=== PATIENT | female | born 1960 | race Caucasian/White ===

== ENCOUNTER 2016-11-12 15:04 | Emergency (ER) | payer MEDICARE, MEDICAID ==
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
[2016-11-12] MEDS ORDERED: LORazepam 1 MG Tab PO ONE (16:47)
[2016-11-12] MEDS ORDERED: Acetaminophen 325 MG Tab PO ONE (16:47)
[2016-11-12 16:53] LABS: ACETAMINOPHEN 0 ug/mL (10-30)
[2016-11-12 18:37] VITALS: BP 162/86
== END 2016-11-12 18:40 ==
LOC: JD.ED 15:04
DX: R45.851 Suicidal ideations (principal); J45.909 Unspecified asthma, uncomplicated; E78.00 Pure hypercholesterolemia, unspecified; F41.8 Other specified anxiety disorders; E03.9 Hypothyroidism, unspecified; Z96.642 Presence of left artificial hip joint; Z98.890 Other specified postprocedural states; Z87.891 Personal history of nicotine dependence; Z79.82 Long term (current) use of aspirin; Z88.1 Allergy status to other antibiotic agents; Z79.899 Other long term (current) drug therapy
CPT/HCPCS: 36415; 80053; 80306; 81001; 84443; 85025; 99285; A9270; G0480; 99284

== ENCOUNTER 2018-01-27 09:47 | Day surgery (SDC) | payer MEDICARE, MEDICAID ==
[~2018-01-27 09:47] MED LIST: Acetaminophen 325 MG Tab PO SCH; Albuterol 0.083% 2.5 MG/3 ML Neb Soln NEB ONE; EPINEPHrine 1 MG/ML SDV ONE; Lidocaine 1%/Sod Bicarbonate in NS 8.4% 1 ML Syringe IDERM PRN; Pregabalin 25 MG Cap PO SCH; Ropivacaine 0.5% 5 MG/ML 30 ML SDV ONE; Sodium Chloride 0.9% 10 ML Syringe FLUSH PRN; oxyCODONE ER 10 MG TAB.ER PO SCH
[2018-01-27] MEDS: Lactated Ringers 1,000 ML IV SCH ×2 (10:40→13:43)
--- NOTE | 2018-01-27 12:14 | PCM.PREANE ---
Preanesthetic Assessment - Anesthesia/Transfusion/Family Hx Anesthesia History: Prior Anesthesia Without Reaction Type of Anesthesia Reaction: Excessive Nausea/Vomiting Family History of Anesthesia Reaction: No Transfusion History: No Prior Transfusion(s) - Review of Systems General: Other (hx of rubella) Pulmonary: Shortness of Breath, Other (asthma on inhalers, LILIANA with CPAP, quit smoking 2 months ago) Cardiovascular: Palpitations, Other (increased cholesterol) Gastrointestinal: Other (Gerd on meds) Neurological: Headache, Other (C3456 fusion) Other: Reports: Thyroid Problems (hypothyroid), Depression, Anxiety ( schizophrenia, hx of ETOH abuse, ) - Physical Assessment NPO Status Date: 01/26/18 NPO Status Time: 20:30 Pulse: 77 O2 Sat by Pulse Oximetry: 95 Respiratory Rate: 16 Blood Pressure: 156/81 Vital Signs: Last Vital Signs Temp 37.2 C 01/27/18 10:15 Pulse 77 01/27/18 10:15 Resp 16 01/27/18 10:15 BP 156/81 H 01/27/18 10:15 Pulse Ox 95 01/27/18 10:15 Height: 1.6 m Weight: 100.698 kg ASA Class: 3 Mental Status: Alert & Oriented x3 Airway Class: Mallampati = 2 ROM/Head Extension: Limited/Partial (hx of c3456 fusion) Lungs: Clear to Auscultation, Normal Respiratory Effort Cardiovascular: Regular Rate, Regular Rhythm - Lab Values: Laboratory Last Values MRSA (PCR) Negative 12/31/17 16:04 - Allergies Allergies/Adverse Reactions: Allergies Allergy/AdvReac Type Severity Reaction Status Date / Time fluconazole [From Diflucan] Allergy dystonia Verified 01/24/18 14:37 ibuprofen Allergy stiffness Verified 01/24/18 14:37 levofloxacin [From Levaquin] Allergy Rash Verified 01/24/18 14:37 naproxen [From Aleve] Allergy stiffness Verified 01/24/18 14:37 - Blood Blood Available: No Product(s) Available: None - Anesthesia Plan Pre-Op Medication Ordered: None - Acknowledgements Pt an Appropriate Candidate for the Planned Anesthesia: Yes Alternatives and Risks of Anesthesia Discussed w Pt/Guardian: Yes Pt/Guardian Understands and Agrees with Anesthesia Plan: Yes PreAnesthesia Questionnaire HEENT History: Reports: Hard of Hearing, Sinusitis Other HEENT History: hearing loss, tonsillitis, pharyngitis, vasomotor rhinitis , deviated septum, wears glasses, has hearing aids Cardiovascular History: Reports: High Cholesterol, Other (See Below) Other Cardiovascular History: palpitations Respiratory History: Reports: Asthma, Bronchitis, Recurrent, Sleep Apnea, SOB, Other (See Below) Other Respiratory History: URI, pleural effusions Gastrointestinal History: Reports: GERD, GI Bleed Genitourinary History: Reports: Urinary Incontinence, UTI, Recurrent, Other ( See Below) Other Genitourinary History: hematuria, UTI, cystitis NEONATAL NURSE PRACTITIONER History: Reports: Therapeutic Other OB/BYN History: right breast biopsy, elective Musculoskeletal History: Reports: Osteoarthritis Other Musculoskeletal History: contusion, costochondritis, back pain, iknee enthesopathy, joint pain, hammertoe, left knee torn meniscus, degenerative joint disease Neurological History: Reports: Headaches, Chronic Psychiatric History: Reports: Addiction, Anxiety, Depression, Schizophrenia Endocrine/Metabolic History: Reports: Hypothyroidism Hematologic History: Reports: Other (See Below) Other Hematologic History: abnormal coagulation studies Immunologic History: Reports: None Oncologic (Cancer) History: Reports: None Dermatologic History: Reports: Other (See Below) Other Dermatologic History: animal bite, foot ulcer - Past Surgical History Other HEENT Surgeries/Procedures: deviated septum with surgery Cardiovascular Surgical History: Reports: None Respiratory Surgical History: Reports: None GI Surgical History: Reports: Colonoscopy Female Surgical History: Reports: Breast Biopsy, Hysterectomy, Tubal Ligation Other Female Surgeries/Procedures: right ovary Male Surgical History: Reports: None Endocrine Surgical History: Reports: None Neurological Surgical History: Reports: C-Spine Other Neurological Surgeries/Procedures: C3456 Musculoskeletal Surgical History: Reports: Arthroscopic Knee, Hip Replacement Other Musculoskeletal Surgeries/Procedures:: left hip, left knee surgery Oncologic Surgical History: Reports: None Dermatological Surgical History: Reports: None - SUBSTANCE USE Smoking Status *Q: Former Smoker Tobacco Use Within Last Twelve Months: Cigarettes Second Hand Smoke Exposure: Yes Days Per Week of Alcohol Use: 0 Recreational Drug Use History: No - HOME MEDS Home Medications: Home Meds Aspirin [Halfprin] 81 mg PO DAILY 11/05/13 [History] Esomeprazole [NexIUM] 40 mg PO DAILY 12/21/14 [History] Calcium Carbonate/Vitamin D3 [Calcium 600 + Vit D 800 Tab] 1 tab PO DAILY [History] Lurasidone HCl [Latuda] 80 mg PO DAILY 07/19/15 [History] Simvastatin [Zocor] 20 mg PO DAILY 07/19/15 [History] Multivitamin [Multivitamins] 1 each PO DAILY 11/12/16 [History] Acetaminophen [Tylenol Arthritis] 650 mg PO BID PRN 01/24/18 [History] Albuterol [Ventolin HFA] 1 - 2 puff INH Q4H PRN 01/24/18 [History] Cyclobenzaprine [Flexeril] 10 mg PO DAILY 01/24/18 [History] Fluticasone/Salmeterol [Advair 250-50 Diskus] 1 puff INH BID 01/24/18 [History] Nicotine [Nicotine Patch] 1 patch TOP DAILY 01/24/18 [History] buPROPion [Wellbutrin SR] 150 mg PO DAILY 01/24/18 [History] - CURRENT (IN HOUSE) MEDS Current Meds: Current Medications Acetaminophen (Tylenol) 975 mg PO ONETIME ELVA Stop: 01/27/18 16:00 Lactated Ringer's (Ringers, Lactated) 1,000 mls @ 125 mls/hr IV ASDIRECTED ELVA Stop: 01/27/18 23:00 Last Admin: 01/27/18 10:40 Dose: 125 mls/hr Lidocaine/Sodium Bicarbonate (Buffered Lidocaine 1% In Ns 8.4%) 0.25 ml IDERM ONETIME PRN PRN Reason: Prior to IV Start Stop: 01/27/18 18:00 Oxycodone HCl (Oxycontin) 10 mg PO ONETIME ELVA Stop: 01/27/18 16:00 Pregabalin (Lyrica) 50 mg PO ONETIME ELVA Stop: 01/27/18 16:00 Sodium Chloride (Saline Flush) 10 ml FLUSH ASDIRECTED PRN PRN Reason: Keep Vein Open Stop: 01/27/18 18:00 Discontinued Medications Albuterol (Proventil Neb Soln) 2.5 mg NEB ONETIME ONE Stop: 01/24/18 14:01 Morphine Sulfate 8 mg/Epinephrine HCl 0.3 mg/Cefuroxime Sodium 750 mg/Ketorolac Tromethamine 30 mg/Sodium Chloride 27.9 ml 0 mg .XX ONETIME ONE Stop: 01/27/18 11:26 Epinephrine HCl (Adrenalin) Confirm Administered Dose 1 mg .ROUTE .STK-MED ONE Stop: 01/27/18 07:49 Ropivacaine (Naropin 0.5%) Confirm Administered Dose 30 ml .ROUTE .STK-MED ONE Stop: 01/27/18 07:49
[2018-01-27] MEDS ORDERED: Ondansetron 4 MG/2 ML SDV ONE (12:35)
[2018-01-27] MEDS ORDERED: Propofol 200 MG/20 ML SDV ONE ×2 (12:35→14:40)
[2018-01-27] MEDS ORDERED: fentaNYL 100 MCG/2 ML SDV ONE (12:35)
[2018-01-27] MEDS ORDERED: Midazolam 1 MG/ML 2 ML SDV ONE (12:35)
[2018-01-27] MEDS ORDERED: ceFAZolin 1 GM Vial ONE (12:35)
[2018-01-27] MEDS ORDERED: Bupivacaine 0.75% 30 ML SDV ONE (12:43)
[2018-01-27] MEDS ORDERED: Lidocaine 1% 2 ML ONE (12:43)
[2018-01-27] MEDS ORDERED: Albuterol 0.083% 2.5 MG/3 ML Neb Soln NEB ONE (12:45)
[2018-01-27] MEDS ORDERED: Lidocaine 1% 4 ML ONE (13:02)
--- NOTE | 2018-01-27 13:23 | PCM.SN ---
- Free Text/Narrative Note: Right selective femoral nerve block at the adductor canal for post-procedure pain control under US guidance requested by Dr. Mcdonald. Time Out: 1302 Start: 1308 End: 1311 Chart reviewed. Consent signed. Questions answered. Appropriate monitors applied. Time out performed. Right mid-shaft femur identified with ultrasound, scanning medially of femur, the femoral artery in the adductor canal visualized , and the femoral nerve located laterally to the artery. The skin was prepped lateral to the ultrasound probe with chlorahexadine times two. The 21ga 4 insulated block needle was inserted under direct ultrasound guidance into the adductor canal. 25mL of 0.5% ropivacaine with 1:200,000 epinephrine was injected circumferentially around the nerve with intermittent negative aspiration noted. Patient tolerated the procedure well. Sterile technique noted along with sterile gloves, mask, and sterile probe cover. See picture on progress note and vital signs on nurses notes. Block completed in preop area with Alex Burris CRNA assist. Sergio Mendoza CRNA
[2018-01-27] MEDS: Bupivacaine 0.25% 30 ML SDV ONE ×2 (13:26→15:21)
[2018-01-27] MEDS: ceFAZolin 1 GM Vial ONE ×2 (13:26→15:26)
[2018-01-27] MEDS: Iodine/Sodium Iodide 2% Tincture 30 ML Bottle ONE ×2 (13:27→15:14)
[2018-01-27] MEDS: Morphine 8 MG, EPINEPHrine 0.3 MG, Cefuroxime 750 MG, Ketorolac 30 MG, Sodium Chloride ... ONE ×15 (13:27→17:27)
[2018-01-27] MEDS: Vancomycin 1 GM SDV ONE ×2 (13:28→15:23)
[2018-01-27] MEDS ORDERED: Morphine 8 MG, EPINEPHrine 0.3 MG, Cefuroxime 750 MG, Sodium Chloride 0.9% 27.9 ML ONE ×4 (15:00)
[2018-01-27] MEDS ORDERED: fentaNYL 100 MCG/2 ML SDV IVPUSH PRN (15:32)
[2018-01-27] MEDS ORDERED: Ondansetron 4 MG/2 ML SDV IVPUSH PRN ×2 (15:32→16:09)
[2018-01-27] MEDS ORDERED: Lactated Ringers 1,000 ML ONE (15:35)
[2018-01-27] MEDS ORDERED: Bisacodyl 5 MG Tab PO PRN (16:09)
[2018-01-27] MEDS ORDERED: Magnesium Hydroxide 400 MG/5 ML Susp 30 ML Cup PO PRN (16:09)
[2018-01-27] MEDS ORDERED: Naloxone 0.4 MG/ML SDV IVPUSH PRN (16:09)
[2018-01-27] MEDS ORDERED: Cyclobenzaprine 10 MG Tab PO PRN (16:09)
[2018-01-27] MEDS ORDERED: Sennosides 8.6 MG Tab PO PRN (16:09)
--- NOTE | 2018-01-27 16:10 | PCM.POSTAN ---
POST ANESTHESIA ASSESSMENT - MENTAL STATUS Mental Status: Alert, Oriented - VITAL SIGNS Pulse Rate: 77 SaO2: 96 Resp Rate: 24 Blood Pressure: 106/46 Temperature: 98.6 F - RESPIRATORY Respiratory Status: Respiratory Rate WNL, Airway Patent - CARDIOVASCULAR CV Status: Pulse Rate WNL, Blood Pressure Stable - GASTROINTESTINAL GI Status: No Symptoms - PAIN Pain Score: 0 - POST OP HYDRATION Hydration Status: Adequate & Stable
[2018-01-27] MEDS ORDERED: Famotidine 20 MG Tab PO SCH (16:15)
--- NOTE | 2018-01-27 17:14 | CR ---
Left knee AP and lateral views of the right knee were obtained. Comparison: Prior right knee exam of 05/14/17. Knee prosthesis is seen. Components are aligned. Soft tissue air is noted from the surgical procedure. No acute bony abnormality is seen. Impression: 1. Satisfactory postoperative radiographic appearance of recently placed right knee prosthesis. Diagnostic code #2
[2018-01-27] MEDS: Acetaminophen/oxyCODONE 325-5 MG Tab PO PRN ×2 (18:27→23:42)
[2018-01-27] MEDS: Morphine 2 MG/ML Syringe IVPUSH PRN (20:43)
[2018-01-27] MEDS: Docusate Sodium 100 MG Cap PO SCH (20:44)
[2018-01-27] MEDS: ceFAZolin 2 GM in Premix Bag 1 BAG IV SCH (20:44)
[2018-01-27] MEDS ORDERED: Formoterol/Mometasone 200-5 MCG 8.8 GM Inhaler IH SCH (21:00)
[2018-01-27] MEDS ORDERED: LATUDA 80 MG PO SCH (21:45)
[2018-01-27] MEDS: ADVAIR INH SCH (21:54)
[2018-01-27] MEDS: Albuterol 6.7 GM Inhaler INH PRN (23:06)
[2018-01-27] MEDS ORDERED: Acetaminophen 325 MG Tab PO PRN (23:26)
[2018-01-28] MEDS: Morphine 2 MG/ML Syringe IVPUSH PRN ×2 (02:02→07:50)
[2018-01-28] MEDS: ceFAZolin 2 GM in Premix Bag 1 BAG IV SCH ×2 (03:59→11:52)
[2018-01-28] MEDS: Acetaminophen/oxyCODONE 325-5 MG Tab PO PRN ×3 (05:17→13:16)
--- NOTE | 2018-01-28 05:26 | PCM.SN ---
- Free Text/Narrative Note: Patient seen and examined at bedside. She is status post Right TKA POD #1. She slept fairly good overnight. Her pain is controlled. She looks clinically stable and reports no acute issues. However her blood pressures for the most part poorly controlled. Will defer pain management to the primary team and consider starting her on PRN antihypertensive medication.
[2018-01-28] MEDS ORDERED: Pantoprazole 40 MG Tab.CR PO SCH (06:00)
--- NOTE | 2018-01-28 07:53 | PCM.SURGPN ---
- General Info Date of Service: 01/28/18 POD#: 1 Functional Status: Reports: Pain Controlled, Tolerating Diet, Ambulating, Urinating, Incentive Spirometry, Other (The pt has progressed well with therapies. She states she will have the assistance of her at home.) - Patient Data Vitals - Most Recent: Last Vital Signs Temp 99.7 F 01/28/18 06:40 Pulse 99 01/28/18 03:34 Resp 24 H 01/28/18 03:34 BP 152/66 H 01/28/18 03:34 Pulse Ox 98 01/28/18 03:34 Weight - Most Recent: 222 lb I&O - Last 24 Hours: Intake & Output 01/27/18 01/28/18 01/28/18 22:59 06:59 14:59 Intake Total 240 Output Total 15 Balance 240 -15 Lab Results Last 24 Hrs: Laboratory Results - last 24 hr 01/28/18 01/28/18 Range/Units 06:25 06:25 WBC 8.85 (3.98-10.04) K/mm3 RBC 4.45 (3.98-5.22) M/mm3 Hgb 12.1 (11.2-15.7) gm/L Hct 37.0 (34.1-44.9) % MCV 83.1 (79.4-94.8) fl MCH 27.2 (25.6-32.2) pg MCHC 32.7 (32.2-35.5) g/dl RDW Std Deviation 42.7 (36.4-46.3) fL Plt Count 239 (182-369) K/mm3 MPV 9.3 L (9.4-12.3) fl Sodium 136 (136-145) mEq/L Potassium 4.2 (3.5-5.1) mEq/L Chloride 101 (98-107) mEq/L Carbon Dioxide 24 (21-32) mEq/L Anion Gap 15.2 H (5-15) BUN 8 (7-18) mg/dL Creatinine 1.0 (0.55-1.02) mg/dL Est Cr Clr Drug Dosing 50.73 mL/min Estimated GFR (MDRD) 57 (>60) mL/min BUN/Creatinine Ratio 8.0 L (14-18) Glucose 123 H (74-106) mg/dL Calcium 8.2 L (8.5-10.1) mg/dL Total Bilirubin 0.5 (0.2-1.0) mg/dL AST 24 (15-37) U/L ALT 21 (14-59) U/L Alkaline Phosphatase 94 (46-116) U/L Total Protein 6.5 (6.4-8.2) g/dl Albumin 3.1 L (3.4-5.0) g/dl Globulin 3.4 gm/dL Albumin/Globulin Ratio 0.9 L (1-2) Med Orders - Current: Current Medications Acetaminophen (Tylenol) 650 mg PO Q4H PRN PRN Reason: Fever Last Admin: 01/27/18 23:34 Dose: 650 mg Albuterol (Proventil Hfa) 1 - 2 gm INH Q4H PRN PRN Reason: Shortness of Breath Last Admin: 01/27/18 23:06 Dose: 2 puff Aspirin (Halfprin) 81 mg PO DAILY [facility] Bisacodyl (Dulcolax) 5 mg PO DAILY PRN PRN Reason: Constipation Bupropion HCl (Wellbutrin Xl) 150 mg PO DAILY [facility] Calcium Carbonate (Calcium Carbonate/Vitamin D 600 Mg-200 Unit) 1 tab PO DAILY [facility] Cyclobenzaprine HCl (Flexeril) 10 mg PO TID PRN PRN Reason: Spasms Last Admin: 01/28/18 06:38 Dose: 10 mg Docusate Sodium (Colace) 100 mg PO BID [facility] Last Admin: 01/27/18 20:44 Dose: 100 mg Cefazolin Sodium/Dextrose 2 gm (/ Premix) 50 mls @ 100 mls/hr IV Q8H [facility] Stop: 01/28/18 12:29 Last Admin: 01/28/18 03:59 Dose: 100 mls/hr Lorazepam (Ativan) 2 mg PO QPM [facility] Magnesium Hydroxide (Milk Of Magnesia) 30 ml PO BID PRN PRN Reason: Constipation Miscellaneous Information (Remove Patch) 1 ea TRDERM DAILY [facility] Morphine Sulfate (Morphine) 2 mg IVPUSH Q2H PRN PRN Reason: Breakthrough Pain Last Admin: 01/28/18 07:50 Dose: 2 mg Multivitamins (Thera) 1 each PO DAILY [facility] Naloxone HCl (Narcan) 0.1 mg IVPUSH Q5M PRN PRN Reason: Oversedation Nicotine (Habitrol) 21 mg TOP DAILY [facility] Latuda 80 Mg Own (Med) 0 mg PO BEDTIME [facility] Last Admin: 01/27/18 23:02 Dose: 80 mg Ondansetron HCl (Zofran) 4 mg IVPUSH Q6H PRN PRN Reason: Nausea/Vomiting Oxycodone/Acetaminophen (Percocet 325-5 Mg) 1 - 2 tab PO Q4H PRN PRN Reason: Pain Last Admin: 01/28/18 05:17 Dose: 2 tab Pantoprazole Sodium (Protonix) 40 mg PO ACBREAKFAST [facility] Last Admin: 01/28/18 05:17 Dose: 40 mg Advair 250/50 (Inhaler Own Med) 0 each INH BID [facility] Last Admin: 01/27/18 21:54 Dose: 1 each Rivaroxaban (Xarelto) 10 mg PO DAILY [facility] Senna (Senna) 8.6 mg PO BID PRN PRN Reason: Constipation Simvastatin (Zocor) 20 mg PO DAILY [facility] Discontinued Medications Acetaminophen (Tylenol) 975 mg PO ONETIME [facility] Stop: 01/27/18 16:00 Last Admin: 01/27/18 12:38 Dose: 975 mg Albuterol (Proventil Neb Soln) 2.5 mg NEB ONETIME ONE Stop: 01/24/18 14:01 Albuterol (Proventil Neb Soln) 2.5 mg NEB ONETIME ONE Stop: 01/27/18 12:46 Last Admin: 01/27/18 12:48 Dose: 2.5 mg Bupivacaine HCl (Marcaine 0.25%) Confirm Administered Dose 30 ml .ROUTE .STK- MED ONE Stop: 01/27/18 12:26 Last Admin: 01/27/18 15:21 Dose: 30 ml Bupivacaine HCl (Sensorcaine-Mpf 0.75%) Confirm Administered Dose 30 ml .ROUTE .STK-MED ONE Stop: 01/27/18 12:44 Cefazolin Sodium (Ancef) Confirm Administered Dose 2 gm .ROUTE .STK-MED ONE Stop: 01/27/18 12:26 Last Admin: 01/27/18 15:26 Dose: 2 gm Cefazolin Sodium (Ancef) Confirm Administered Dose 2 gm .ROUTE .STK-MED ONE Stop: 01/27/18 12:36 Morphine Sulfate 8 mg/Epinephrine HCl 0.3 mg/Cefuroxime Sodium 750 mg/Ketorolac Tromethamine 30 mg/Sodium Chloride 27.9 ml 0 mg .XX ONETIME ONE Stop: 01/27/18 11:26 Last Admin: 01/27/18 17:27 Dose: Not Given Morphine Sulfate 8 mg/Epinephrine HCl 0.3 mg/Cefuroxime Sodium 750 mg/Sodium Chloride 27.9 ml 0 mg .XX ONETIME ONE Stop: 01/27/18 15:01 Last Admin: 01/27/18 15:20 Dose: 758.3 mg Epinephrine HCl (Adrenalin) Confirm Administered Dose 1 mg .ROUTE .STK-MED ONE Stop: 01/27/18 07:49 Famotidine (Pepcid) 20 mg PO Q12H [facility] Last Admin: 01/27/18 19:13 Dose: Not Given Fentanyl (Sublimaze) Confirm Administered Dose 100 mcg .ROUTE .STK-MED ONE Stop: 01/27/18 12:36 Fentanyl (Sublimaze) 50 mcg IVPUSH Q5M PRN PRN Reason: Pain Lactated Ringer's (Ringers, Lactated) 1,000 mls @ 125 mls/hr IV ASDIRECTED [facility] Stop: 01/27/18 23:00 Last Admin: 01/27/18 13:43 Dose: 125 mls/hr Lidocaine HCl (Xylocaine-Mpf 1%) Confirm Administered Dose 2 mls @ as directed .ROUTE .STK-MED ONE Stop: 01/27/18 12:44 Lidocaine HCl (Xylocaine-Mpf 1%) Confirm Administered Dose 4 mls @ as directed .ROUTE .STK-MED ONE Stop: 01/27/18 13:03 Lactated Ringer's (Ringers, Lactated) Confirm Administered Dose 1,000 mls @ as directed .ROUTE .STK-MED ONE Stop: 01/27/18 15:36 Iodine (Iodine 2% Mild Tincture) Confirm Administered Dose 30 ml .ROUTE .STK- MED ONE Stop: 01/27/18 12:26 Last Admin: 01/27/18 15:14 Dose: 18 ml Lidocaine/Sodium Bicarbonate (Buffered Lidocaine 1% In Ns 8.4%) 0.25 ml IDERM ONETIME PRN PRN Reason: Prior to IV Start Stop: 01/27/18 18:00 Midazolam HCl (Versed 1 Mg/Ml) Confirm Administered Dose 2 mg .ROUTE .STK-MED ONE Stop: 01/27/18 12:36 Ondansetron HCl (Zofran) Confirm Administered Dose 4 mg .ROUTE .STK-MED ONE Stop: 01/27/18 12:36 Ondansetron HCl (Zofran) 4 mg IVPUSH ONETIME PRN PRN Reason: Nausea/Vomiting Oxycodone HCl (Oxycontin) 10 mg PO ONETIME [facility] Stop: 01/27/18 16:00 Last Admin: 01/27/18 12:37 Dose: 10 mg Pregabalin (Lyrica) 50 mg PO ONETIME [facility] Stop: 01/27/18 16:00 Last Admin: 01/27/18 12:36 Dose: 50 mg Propofol (Diprivan 20 Ml) Confirm Administered Dose 600 mg .ROUTE .STK-MED ONE Stop: 01/27/18 12:36 Propofol (Diprivan 20 Ml) Confirm Administered Dose 400 mg .ROUTE .STK-MED ONE Stop: 01/27/18 14:41 Ropivacaine (Naropin 0.5%) Confirm Administered Dose 30 ml .ROUTE .STK-MED ONE Stop: 01/27/18 07:49 Sodium Chloride (Saline Flush) 10 ml FLUSH ASDIRECTED PRN PRN Reason: Keep Vein Open Stop: 01/27/18 18:00 Tranexamic Acid (Cyklokapron) Confirm Administered Dose 1,000 mg .ROUTE .STK- MED ONE Stop: 01/27/18 12:26 Last Admin: 01/27/18 15:24 Dose: 1,000 mg Vancomycin HCl (Vancomycin) Confirm Administered Dose 1 gm .ROUTE .STK-MED ONE Stop: 01/27/18 12:26 Last Admin: 01/27/18 15:23 Dose: 1 gm - Exam Wound/Incisions: Dressing Dry and Intact General: Alert, Cooperative, No Acute Distress Lungs: Normal Respiratory Effort Extremities: Other (NVS intact for RLE. Meredith's negative.) - Problem List Review Problem List Initiated/Reviewed/Updated: Yes - My Orders Last 24 Hours: Active Orders 24 hr Category Date Time Status Patient Status [ADT] Routine ADT 01/27/18 16:09 Active Ambulate [RC] TIDAC Care 01/27/18 16:09 Active Cooling Warming Measures [RC] ASDIRECTED Care 01/27/18 15:31 Inactive May Shower [RC] ASDIRECTED Care 01/27/18 16:09 Active Notify Provider Consults [RC] ASDIRECTED Care 01/27/18 16:12 Active Oxygen Therapy [RC] PRN Care 01/27/18 16:09 Active Pulse Oximetry [RC] ASDIRECTED Care 01/27/18 15:31 Active RT Aerosol Therapy [RC] ASDIRECTED Care 01/27/18 14:00 Active RT Incentive Spirometry [RC] Q1HWA Care 01/27/18 16:09 Active Ready for Discharge [RC] PER UNIT ROUTINE Care 01/28/18 07:43 Active Up to Chair [RC] ASDIRECTED Care 01/27/18 16:09 Active Urinary Catheter Removal [RC] 2100 Care 01/27/18 16:09 Active Vital Signs [RC] Q15M Care 01/27/18 15:31 Inactive Vital Signs [RC] Q4HR Care 01/27/18 16:09 Active Consult to Physician [CONS] Routine Cons 01/27/18 16:09 Active OT Evaluation and Treatment [CONS] Routine Cons 01/27/18 16:08 Active PT Evaluation and Treatment [CONS] Routine Cons 01/27/18 16:08 Active Regular Diet [DIET] Diet 01/27/18 Dinner Active Acetaminophen [Tylenol] Med 01/27/18 23:26 Active 650 mg PO Q4H PRN Acetaminophen/oxyCODONE [Percocet 325-5 MG] Med 01/27/18 16:09 Active 1 - 2 tab PO Q4H PRN Albuterol [Proventil HFA] Med 01/27/18 16:12 Active 1 - 2 gm INH Q4H PRN Aspirin [Halfprin] Med 01/28/18 09:00 Active 81 mg PO DAILY Bisacodyl [Dulcolax] Med 01/27/18 16:09 Active 5 mg PO DAILY PRN Calcium Carbonate/Vitamin D3 [Calcium Carbonate/Vitamin Med 01/28/18 09:00 Active D 600 MG-200 Unit] 1 tab PO DAILY Cyclobenzaprine [Flexeril] Med 01/27/18 16:09 Active 10 mg PO TID PRN Docusate Sodium [Colace] Med 01/27/18 21:00 Active 100 mg PO BID LORazepam [Ativan] Med 01/28/18 18:00 Active 2 mg PO QPM Lurasidone HCl [Latuda] Med 01/27/18 21:45 Active 0 mg PO BEDTIME Magnesium Hydroxide [Milk of Magnesia] Med 01/27/18 16:09 Active 30 ml PO BID PRN Morphine Med 01/27/18 16:09 Active 2 mg IVPUSH Q2H PRN Multivitamins,Therapeutic [Thera] Med 01/28/18 09:00 Active 1 each PO DAILY Naloxone [Narcan] Med 01/27/18 16:09 Active 0.1 mg IVPUSH Q5M PRN Nicotine [Habitrol] Med 01/28/18 09:00 Active 21 mg TOP DAILY Ondansetron [Zofran] Med 01/27/18 16:09 Active 4 mg IVPUSH Q6H PRN Pantoprazole [ProTONIX] Med 01/28/18 06:00 Active 40 mg PO ACBREAKFAST Patient's Own Medication [Ptom] Med 01/27/18 21:45 Active 0 each INH BID Remove Patch Med 01/29/18 09:00 Active 1 ea TRDERM DAILY Rivaroxaban [Xarelto] Med 01/28/18 09:00 Active 10 mg PO DAILY Sennosides [Senna] Med 01/27/18 16:09 Active 8.6 mg PO BID PRN Simvastatin [Zocor] Med 01/28/18 09:00 Active 20 mg PO DAILY buPROPion [Wellbutrin XL] Med 01/28/18 09:00 Active 150 mg PO DAILY ceFAZolin [Ancef] 2 gm Med 01/27/18 20:00 Active Premix Bag 1 bag IV Q8H Antiembolic Hose [OM.PC] Per Unit Routine Oth 01/27/18 16:11 Ordered Ice Therapy [OM.PC] Per Unit Routine Oth 01/27/18 16:10 Ordered Sequential Compression Device [OM.PC] Per Unit Routine Oth 01/27/18 16:09 Ordered Resuscitation Status Routine Resus Stat 01/27/18 16:09 Ordered Medication Orders Acetaminophen (Tylenol) 650 mg PO Q4H PRN PRN Reason: Fever Last Admin: 01/27/18 23:34 Dose: 650 mg Albuterol (Proventil Hfa) 1 - 2 gm INH Q4H PRN PRN Reason: Shortness of Breath Last Admin: 01/27/18 23:06 Dose: 2 puff Aspirin (Halfprin) 81 mg PO DAILY [facility] Bisacodyl (Dulcolax) 5 mg PO DAILY PRN PRN Reason: Constipation Bupropion HCl (Wellbutrin Xl) 150 mg PO DAILY [facility] Calcium Carbonate (Calcium Carbonate/Vitamin D 600 Mg-200 Unit) 1 tab PO DAILY [facility] Cyclobenzaprine HCl (Flexeril) 10 mg PO TID PRN PRN Reason: Spasms Last Admin: 01/28/18 06:38 Dose: 10 mg Docusate Sodium (Colace) 100 mg PO BID [facility] Last Admin: 01/27/18 20:44 Dose: 100 mg Cefazolin Sodium/Dextrose 2 gm (/ Premix) 50 mls @ 100 mls/hr IV Q8H [facility] Stop: 01/28/18 12:29 Last Admin: 01/28/18 03:59 Dose: 100 mls/hr Infusion: 01/27/18 21:14 Dose: 100 mls/hr Admin: 01/27/18 20:44 Dose: 100 mls/hr Lorazepam (Ativan) 2 mg PO QPM [facility] Magnesium Hydroxide (Milk Of Magnesia) 30 ml PO BID PRN PRN Reason: Constipation Miscellaneous Information (Remove Patch) 1 ea TRDERM DAILY [facility] Morphine Sulfate (Morphine) 2 mg IVPUSH Q2H PRN PRN Reason: Breakthrough Pain Last Admin: 01/28/18 07:50 Dose: 2 mg Admin: 01/28/18 02:02 Dose: 2 mg Admin: 01/27/18 20:43 Dose: 2 mg Multivitamins (Thera) 1 each PO DAILY [facility] Naloxone HCl (Narcan) 0.1 mg IVPUSH Q5M PRN PRN Reason: Oversedation Nicotine (Habitrol) 21 mg TOP DAILY [facility] Latuda 80 Mg Own (Med) 0 mg PO BEDTIME [facility] Last Admin: 01/27/18 23:02 Dose: 80 mg Ondansetron HCl (Zofran) 4 mg IVPUSH Q6H PRN PRN Reason: Nausea/Vomiting Oxycodone/Acetaminophen (Percocet 325-5 Mg) 1 - 2 tab PO Q4H PRN PRN Reason: Pain Last Admin: 01/28/18 05:17 Dose: 2 tab Admin: 01/27/18 23:42 Dose: 2 tab Admin: 01/27/18 18:27 Dose: 2 tab Pantoprazole Sodium (Protonix) 40 mg PO ACBREAKFAST [facility] Last Admin: 01/28/18 05:17 Dose: 40 mg Advair 250/50 (Inhaler Own Med) 0 each INH BID [facility] Last Admin: 01/27/18 21:54 Dose: 1 each Rivaroxaban (Xarelto) 10 mg PO DAILY [facility] Senna (Senna) 8.6 mg PO BID PRN PRN Reason: Constipation Simvastatin (Zocor) 20 mg PO DAILY [facility] - Assessment Assessment (Free Text/Narrative):: POD#1 - right TKA - Plan Plan (Free Text/Narrative):: 1. Hgb 12.1. 2. Xarelto (hx GI Bleed, GERD), frequent mobility, TEDs. 3. Discharge to home today. 4. Medical management per Hospitalist service. The pt's case was discussed with Dr. Mcdonald.
[2018-01-28] MEDS ORDERED: Calcium Carbonate/Vitamin D3 600 MG-200 Units Tab PO SCH (09:00)
[2018-01-28] MEDS ORDERED: Simvastatin 20 MG Tab PO SCH (09:00)
[2018-01-28] MEDS ORDERED: Aspirin 81 MG Tab.EC PO SCH (09:00)
[2018-01-28] MEDS ORDERED: Nicotine 21 MG/24 Hr Patch TOP SCH (09:00)
[2018-01-28] MEDS ORDERED: buPROPion 150 MG Tab.ER PO SCH (09:00)
[2018-01-28] MEDS ORDERED: Multivitamins,Therapeutic Tab PO SCH (09:00)
[2018-01-28] MEDS ORDERED: Rivaroxaban 10 MG Tab PO SCH (09:00)
[2018-01-28] MEDS: Docusate Sodium 100 MG Cap PO SCH (09:38)
--- NOTE | 2018-01-28 10:21 | PCM48HPAN ---
Post Anesthesia Note - EVALUATION WITHIN 48HRS OF ANESTHETIC Vital Signs in Normal Range: Yes Patient Participated in Evaluation: Yes Respiratory Function Stable: Yes Airway Patent: Yes Cardiovascular Function Stable: Yes Hydration Status Stable: Yes Pain Control Satisfactory: Yes Nausea and Vomiting Control Satisfactory: Yes Mental Status Recovered: Yes - COMMENTS/OBSERVATIONS Free Text/Narrative:: Patient denied any anesthetic complications. Patient did say she experienced quite a bit of pain all night last night. She did not rest well. Patient seemed to be resting well upon arrival for the assessment this am as her eyes were closed and the room darkened. Patient stated her pain was tolerable if she doesnt move her leg.
[2018-01-28] MEDS: ADVAIR INH SCH (10:34)
[2018-01-28] MEDS: Albuterol 6.7 GM Inhaler INH PRN (10:34)
[2018-01-28 12:06] VITALS: BP 107/89
[2018-01-28] MEDS ORDERED: LORazepam 1 MG Tab PO SCH (18:00)
[2018-01-29] MEDS ORDERED: Levothyroxine 125 MCG Tab PO SCH (06:00)
[2018-01-29] MEDS ORDERED: Levothyroxine 125 MCG Tab PO ONE (10:59)
--- NOTE | 2018-02-03 07:09 | PCM.OPNOTE ---
- General Post-Op/Procedure Note Date of Surgery/Procedure: 01/27/18 Operative Procedure(s): right total knee arthroplasty Pre Op Diagnosis: right knee osteoarthrosis Post-Op Diagnosis: Same Anesthesia Technique: Local, MAC, Spinal Primary Surgeon: Brian Mcdonald Anesthesia Provider: [employer] Librarian: [employer] Librarian: Gloria العلي in mLs: 10 Complications: None Condition: Good Free Text/Narrative:: / 9mm 29x9 all cemented
--- NOTE | 2018-02-04 10:30 | OR ---
DATE OF OPERATION: 01/27/2018 SURGEON: Brian Mcdonald MD OPERATION PERFORMED: Right total knee arthroplasty. PREOPERATIVE DIAGNOSIS: Right knee osteoarthrosis. POSTOPERATIVE DIAGNOSIS: Right knee osteoarthrosis. ANESTHESIA: Local MAC with spinal. ANESTHESIA PROVIDER: Tessa Estrada. ASSISTANTS: 1. Halley Cabello PA-C. 2. Gloria العلي LPN. ESTIMATED BLOOD LOSS: 10 mL COMPLICATIONS: None. CONDITION: Stable. IMPLANTS: 1. [place] size 4 cemented PS femur. 2. Barney size 4 cemented [place] tibial baseplate. 3. Barney size 4, 9 mm PS X3 polyethylene. 4. Barney size 29 x 9 mm asymmetric patella. DESCRIPTION OF PROCEDURE: The patient was identified in the preop holding area. Proper site was marked and identified by the surgeon. The patient was taken back to the operating theater. After adequate anesthesia, the patient's right lower extremity had a nonsterile tourniquet applied and it was then sterilely prepped and draped in the usual sterile fashion. OR timeout was performed. The patient received 2 g IV Ancef. At this time, right lower extremity was exsanguinated. Tourniquet was insufflated to 300 mmHg. Standard medial parapatellar incision was made. Medial parapatellar arthrotomy was created. Deep fibers of the MCL were raised and anterior fat pad was resected. At this time, attention was turned to the patella. Patella measured 22, it was resected to a 13 for 29 x 9 mm patella. Drill holes were then drilled and found to be in adequate position. The drill was then drilled in the distal femur and the intramedullary distal femoral cutting guide was then placed. 8 mm was resected off the distal femur and was found to be an adequate resection. Sizing guide was placed. It was found to be a Barney size 4 cemented PS femur that was shown on the implant record at the beginning of this dictation. The drill holes were drilled for the epicondylar axis using Whitesides line and epicondyles as reference. At this time, the 4-in- 1 cutting block was placed. An anterior posterior and anterior and posterior chamfer cuts were then completed. The correct size box cut was then placed and the box cut was completed and found to be an adequate resection. Attention was turned to the tibia. The posterior medial lateral retractors were placed. The extramedullary tibial guide was placed. It was placed in the old footprint of the ACL. It was aligned with the center of the ankle and 0 degrees of slope, 9 mm was then resected off the unaffected lateral side. There was found to be an acceptable reduction. At this time, posterior osteophytes were removed along with medial and lateral meniscus. A trial implant was placed with a correct sized tibia that was mentioned at the beginning of the dictation. A Barney size 4, 9 mm PS X3 polyethylene was then placed. The patient's knee was brought through range of motion. The patella was tracking centrally and was stable to varus and valgus stress. Alignment was found to be roughly at 0 degrees. At this time, cement was mixed on the back table. The tibia was stamped and drilled in proper rotation. All cut surfaces were irrigated with pulse lavage irrigation with Ancef and then completely dried. Once this was completed, then the cement was ready. The universal tibial base plate was cemented in place. Next, the [place] size 4 cemented PS femur cemented into place and the [place] size 4, 9 mm PS X3 polyethylene was placed. The patient's knee was brought into full extension. Excess cement was removed. The patella was then cemented in place at this time. Tourniquet was deflated. One liter dilute Betadine solution was irrigated through the knee along with 3 L of pulse lavage irrigation with Ancef. Periarticular injection was then completed. The patient's knee was brought through a range of motion. Once the cement had time to set up and it was found to be stable to varus valgus stress, the patella was tracking centrally with full range of motion. At this time, a #2 barbed suture was used for closure of the medial parapatellar arthrotomy. Topical tranexamic acid was placed. 2-0 Vicryl was used subcutaneously, a running 3-0 Monocryl was used subcuticularly. The patient tolerated the procedure well and was sent to the PACU in stable condition. VISHNU /[id number]
== END 2018-01-28 14:55 | disposition home or self-care (01) ==
LOC: JD.SDS 09:47 → JD.MS 09:50 → JD.SDS 01-28 14:55
PROVIDERS: ATTEND Orthopaedic Surgery
DX: M17.11 Unilateral primary osteoarthritis, right knee (principal); J45.41 Moderate persistent asthma with (acute) exacerbation; Z88.1 Allergy status to other antibiotic agents; Z88.8 Allergy status to other drugs, medicaments and biological substances; Z87.891 Personal history of nicotine dependence; Z79.82 Long term (current) use of aspirin; Z79.899 Other long term (current) drug therapy
CPT/HCPCS: 01402; 36415; 51798; 64450; 73560-26-RT; 73560-RT; 80053; 85027; 87641; 94640; 94664; 94761; 97110-GP; 97116-GP; 97161-GP; 97166-GO; 97535-GO; A9270-GY; C1713; C1776; J0171; J0690; J0697; J1885; J2001; J2250; J2270; J2405; J2704; J2795; J3010; J3370; J3490; J7120

== ENCOUNTER 2018-02-03 16:15 | Emergency (ER) | payer MEDICARE, MEDICAID ==
[2018-02-03 16:23] VITALS: BP 149/53
[2018-02-03] MEDS ORDERED: Sodium Chloride 0.9% 10 ML Syringe FLUSH PRN (16:25)
[2018-02-03] MEDS ORDERED: Sodium Chloride 0.9% 1,000 ML IV SCH (16:30)
[2018-02-03] MEDS ORDERED: HYDROmorphone 0.5 MG/0.5 ML SYRINGE IVPUSH ONE (16:31)
--- NOTE | 2018-02-03 17:21 | US ---
Right lower extremity deep venous ultrasound: Duplex and color flow imaging was obtained of the right common femoral, proximal greater saphenous, superficial femoral, popliteal, posterior tibial and peroneal veins. Left common femoral vein was also evaluated. Findings: Normal phasic flow, augmentation and compression is seen. Lymph node is seen within the right groin which is believed to be incidental. Impression: 1. No evidence of deep venous thrombosis within the right lower extremity or within the left common femoral vein. Diagnostic code #1
--- NOTE | 2018-02-03 17:32 | EDM.PDOC ---
ED HPI GENERAL MEDICAL PROBLEM - General Chief Complaint: Lower Extremity Injury/Pain Stated Complaint: [facility] Time Seen by Provider: 02/03/18 16:18 Source of Information: Reports: Patient, EMS, Family History Limitations: Reports: No Limitations - History of Present Illness INITIAL COMMENTS - FREE TEXT/NARRATIVE: The patient had a right total knee replacement done 1 week ago. She has pain and swelling to that leg. She has no fever but she does have chills. She has no chest pain or shortness of breath. She has no abdominal pain, nausea or vomiting. She has no history of DVT or PE. She sees Lizet Cabello tomorrow. She starts PT next week. Onset: Gradual Duration: Week(s): (1) Location: Reports: Lower Extremity, Right (leg) Quality: Reports: Sharp Severity: Moderate Improves with: Reports: Immobilization Worsens with: Reports: Movement Context: Reports: Activity (She had surgery 1 week ago) Associated Symptoms: Reports: No Other Symptoms Treatments COMPLAINT CLERK: Reports: Other (see below) Other Treatments COMPLAINT CLERK: oxycodone 5/325 Right Knee Pain Score (Numeric/FACES): 7 - Related Data Allergies Allergy/AdvReac Type Severity Reaction Status Date / Time fluconazole [From Diflucan] Allergy dystonia Verified 02/03/18 16:23 levofloxacin [From Levaquin] Allergy Rash Verified 02/03/18 16:23 ibuprofen AdvReac stiffness Verified 02/03/18 16:23 naproxen [From Aleve] AdvReac stiffness Verified 02/03/18 16:23 Home Meds: Home Meds Aspirin [Halfprin] 81 mg PO DAILY 11/05/13 [History] Esomeprazole [NexIUM] 40 mg PO DAILY 12/21/14 [History] Calcium Carbonate/Vitamin D3 [Calcium 600-Vit D3 800 Tablet] 1 tab PO DAILY [History] Lurasidone HCl [Latuda] 80 mg PO DAILY 07/19/15 [History] Simvastatin [Zocor] 20 mg PO DAILY 07/19/15 [History] Multivitamin [Multivitamins] 1 each PO DAILY 11/12/16 [History] Albuterol [Ventolin HFA] 1 - 2 puff INH Q4H PRN 01/24/18 [History] Cyclobenzaprine [Flexeril] 10 mg PO TID PRN 01/24/18 [History] Fluticasone/Salmeterol [Advair 250-50 Diskus] 1 puff INH BID 01/24/18 [History] Nicotine [Nicotine Patch] 1 patch TOP DAILY 01/24/18 [History] buPROPion [Wellbutrin SR] 150 mg PO DAILY 01/24/18 [History] Acetaminophen [Tylenol Arthritis] 650 mg PO BID PRN #0 01/27/18 [Rx] Acetaminophen/oxyCODONE [Percocet 325-5 MG] 1 - 2 tab PO Q6H PRN #60 tablet 04/08 [Rx] Bisacodyl [Dulcolax] 5 mg PO DAILY PRN tablet 01/27/18 [Rx] Docusate Sodium [Colace] 100 mg PO BID cap 01/27/18 [Rx] LORazepam [Ativan] 2 mg PO QPM 01/27/18 [History] Magnesium Hydroxide [Milk of Magnesia] 30 ml PO BID PRN cup 01/27/18 [Rx] Rivaroxaban [Xarelto] 10 mg PO DAILY #40 tablet 01/27/18 [Rx] Sennosides [Senna] 8.6 mg PO BID PRN tablet 01/27/18 [Rx] Levothyroxine 125 mcg PO ACBREAKFAST 01/28/18 [History] Past Medical History HEENT History: Reports: Hard of Hearing, Sinusitis Other HEENT History: hearing loss, tonsillitis, pharyngitis, vasomotor rhinitis , deviated septum, wears glasses, has hearing aids Cardiovascular History: Reports: High Cholesterol, Other (See Below) Other Cardiovascular History: palpitations Respiratory History: Reports: Asthma, Bronchitis, Recurrent, Sleep Apnea, SOB, Other (See Below) Other Respiratory History: URI, pleural effusions Gastrointestinal History: Reports: GERD, GI Bleed Genitourinary History: Reports: Urinary Incontinence, UTI, Recurrent, Other ( See Below) Other Genitourinary History: hematuria, UTI, cystitis COMMUNICATIONS FIELD TECHNICIAN History: Reports: Therapeutic Other COMMUNICATIONS FIELD TECHNICIAN History: right breast biopsy, elective Musculoskeletal History: Reports: Osteoarthritis Other Musculoskeletal History: contusion, costochondritis, back pain, iknee enthesopathy, joint pain, hammertoe, left knee torn meniscus, degenerative joint disease Neurological History: Reports: Headaches, Chronic Psychiatric History: Reports: Addiction, Anxiety, Depression, Schizophrenia Endocrine/Metabolic History: Reports: Hypothyroidism Hematologic History: Reports: Other (See Below) Other Hematologic History: abnormal coagulation studies Immunologic History: Reports: None Oncologic (Cancer) History: Reports: None Dermatologic History: Reports: Other (See Below) Other Dermatologic History: animal bite, foot ulcer - Past Surgical History Other HEENT Surgeries/Procedures: deviated septum with surgery Cardiovascular Surgical History: Reports: None Respiratory Surgical History: Reports: None GI Surgical History: Reports: Colonoscopy Female Surgical History: Reports: Breast Biopsy, Hysterectomy, Tubal Ligation Other Female Surgeries/Procedures: right ovary Endocrine Surgical History: Reports: None Neurological Surgical History: Reports: C-Spine Other Neurological Surgeries/Procedures: [id number] Musculoskeletal Surgical History: Reports: Arthroscopic Knee, Hip Replacement Other Musculoskeletal Surgeries/Procedures:: left hip, left knee surgery Oncologic Surgical History: Reports: None Dermatological Surgical History: Reports: None Social & Family History - Family History Cardiac: Reports: Heart Failure Neurological: Reports: CVA Endocrine/Metabolic: Reports: Diabetes, type II - Tobacco Use Smoking Status *Q: Never Smoker - Caffeine Use Caffeine Use: Reports: Coffee - Living Situation & Occupation Living situation: Reports: with Spouse Review of Systems - Review of Systems Review Of Systems: See Below Constitutional: Reports: No Symptoms Eyes: Reports: No Symptoms Ears: Reports: No Symptoms Nose: Reports: No Symptoms Mouth/Throat: Reports: No Symptoms Respiratory: Reports: No Symptoms Cardiovascular: Reports: No Symptoms GI/Abdominal: Reports: No Symptoms Genitourinary: Reports: No Symptoms Musculoskeletal: Reports: Other (Right leg swelling and pain) Skin: Reports: No Symptoms ED EXAM, GENERAL - Physical Exam Exam: See Below Exam Limited By: No Limitations General Appearance: Alert, No Apparent Distress Ears: Normal External Exam Nose: Normal Inspection Head: Atraumatic, Normocephalic Neck: Normal Inspection Respiratory/Chest: No Respiratory Distress, Lungs Clear, Normal Breath Sounds Cardiovascular: Regular Rate, Rhythm, No Edema, No Murmur GI/Abdominal: Soft, Non-Tender, No Organomegaly, No Mass Extremities: Other (No erythema but there is mild to moderate edema to her right leg. Good sensation distally with good pulses. Ecchymosis to the medial right leg. ) Course - Vital Signs Last Recorded V/S: Last Vital Signs Temp 98.4 F 02/03/18 16:19 Pulse 88 02/03/18 16:19 Resp 16 02/03/18 16:19 BP 149/53 H 02/03/18 16:19 Pulse Ox 96 02/03/18 16:19 - Orders/Labs/Meds Orders: Active Orders 24 hr Category Date Time Status Peripheral IV Care [RC] . DIRECTED Care 02/03/18 16:27 Active SEDIMENTATION RATE AUTO [HEME] Stat Lab 02/03/18 16:24 Received Sodium Chloride 0.9% [Normal Saline] 1,000 ml Med 02/03/18 16:30 Active IV ASDIRECTED Sodium Chloride 0.9% [Saline Flush] Med 02/03/18 16:25 Active 10 ml FLUSH ASDIRECTED PRN Peripheral IV Insertion Adult [OM.PC] Stat Oth 02/03/18 16:25 Ordered Medication Orders Sodium Chloride (Normal Saline) 1,000 mls @ 125 mls/hr IV ASDIRECTED ELVA Last Admin: 02/03/18 16:38 Dose: 125 mls/hr Sodium Chloride (Saline Flush) 10 ml FLUSH ASDIRECTED PRN PRN Reason: Keep Vein Open Last Admin: 02/03/18 16:40 Dose: 10 ml Labs: Laboratory Tests 02/03/18 02/03/18 Range/Units 16:24 16:24 WBC 8.86 (3.98-10.04) K/mm3 RBC 3.97 L (3.98-5.22) M/mm3 Hgb 10.7 L (11.2-15.7) gm/L Hct 33.2 L (34.1-44.9) % MCV 83.6 (79.4-94.8) fl MCH 27.0 (25.6-32.2) pg MCHC 32.2 (32.2-35.5) g/dl RDW Std Deviation 45.1 (36.4-46.3) fL Plt Count 406 H (182-369) K/mm3 MPV 8.7 L (9.4-12.3) fl Neut % (Auto) 73.5 H (34.0-71.1) % Lymph % (Auto) 19.6 (19.3-51.7) % [place] % (Auto) 5.8 (4.7-12.5) % Eos % (Auto) 0.3 L (0.7-5.8) Baso % (Auto) 0.6 (0.1-1.2) % Neut # (Auto) 6.51 H (1.56-6.13) K/mm3 Lymph # (Auto) 1.74 (1.18-3.74) K/mm3 [place] # (Auto) 0.51 H (0.24-0.36) K/mm3 Eos # (Auto) 0.03 L (0.04-0.36) K/mm3 Baso # (Auto) 0.05 (0.01-0.08) K/mm3 Sodium 139 (136-145) mEq/L Potassium 3.6 (3.5-5.1) mEq/L Chloride 102 (98-107) mEq/L Carbon Dioxide 23 (21-32) mEq/L Anion Gap 17.6 H (5-15) BUN 11 (7-18) mg/dL Creatinine 0.9 (0.55-1.02) mg/dL Est Cr Clr Drug Dosing 56.36 mL/min Estimated GFR (MDRD) > 60 (>60) mL/min BUN/Creatinine Ratio 12.2 L (14-18) Glucose 112 H (74-106) mg/dL Calcium 8.9 (8.5-10.1) mg/dL Total Bilirubin 1.0 (0.2-1.0) mg/dL AST 35 (15-37) U/L ALT 33 (14-59) U/L Alkaline Phosphatase 109 (46-116) U/L C-Reactive Protein 13.9 H* (<1.0) mg/dL Total Protein 7.3 (6.4-8.2) g/dl Albumin 3.0 L (3.4-5.0) g/dl Globulin 4.3 gm/dL Albumin/Globulin Ratio 0.7 L (1-2) Meds: Medications Generic Name Dose Route Start Last Admin Trade Name Freq PRN Reason Stop Dose Admin Sodium Chloride 1,000 mls @ 125 mls/hr 02/03/18 16:30 02/03/18 16:38 Normal Saline IV 125 mls/hr ASDIRECTED ELVA Administration Sodium Chloride 10 ml 02/03/18 16:25 02/03/18 16:40 Saline Flush FLUSH 10 ml ASDIRECTED PRN Administration Keep Vein Open Discontinued Medications Generic Name Dose Route Start Last Admin Trade Name Jose Ramon PRN Reason Stop Dose Admin Hydromorphone HCl 0.5 mg 02/03/18 16:31 02/03/18 16:40 Dilaudid IVPUSH 02/03/18 16:32 Not Given ONETIME ONE - Re-Assessments/Exams Free Text/Narrative Re-Assessment/Exam: 02/03/18 17:31 I ordered an IV, dilaudid 0.5mg IV, labs and an US of her right leg to look for DVT. 02/03/18 17:32 Her WBC is normal. Her Hgb is a little low at 10.7. Her CMP looks good. Her CRP was elevated at 13.9. The US shows no evidence of DVT within the right lower extremity or within the left common femoral vein. Departure - Departure Time of Disposition: 17:45 Disposition: Home, Self-Care 01 Condition: Good Clinical Impression: Edema of right lower extremity - Discharge Information *PRESCRIPTION DRUG MONITORING PROGRAM REVIEWED*: Not Applicable *COPY OF PRESCRIPTION DRUG MONITORING REPORT IN PATIENT CARLOS: Not Applicable Forms: ED Department Discharge Additional Instructions: Follow up with Lizet Cabello tomorrow and physical therapy on Saturday. You can move more and that will help with the swelling. Please return if you are worse. - My Orders Last 24 Hours: My Active Orders 02/03/18 16:24 SEDIMENTATION RATE AUTO [HEME] Stat 02/03/18 16:25 Sodium Chloride 0.9% [Saline Flush] 10 ml FLUSH ASDIRECTED PRN Peripheral IV Insertion Adult [OM.PC] Stat 02/03/18 16:27 Peripheral IV Care [RC] . DIRECTED 02/03/18 16:30 Sodium Chloride 0.9% [Normal Saline] 1,000 ml IV ASDIRECTED - Assessment/Plan Last 24 Hours: My Active Orders 02/03/18 16:24 SEDIMENTATION RATE AUTO [HEME] Stat 02/03/18 16:25 Sodium Chloride 0.9% [Saline Flush] 10 ml FLUSH ASDIRECTED PRN Peripheral IV Insertion Adult [OM.PC] Stat 02/03/18 16:27 Peripheral IV Care [RC] . DIRECTED 02/03/18 16:30 Sodium Chloride 0.9% [Normal Saline] 1,000 ml IV ASDIRECTED
== END 2018-02-03 18:00 | disposition home or self-care (01) ==
LOC: JD.ED 16:15
DX: R60.0 Localized edema (principal); Z88.1 Allergy status to other antibiotic agents; Z88.8 Allergy status to other drugs, medicaments and biological substances; Z79.82 Long term (current) use of aspirin; Z79.899 Other long term (current) drug therapy
CPT/HCPCS: 36415; 80053; 85025; 85652; 86140; 93971; 96360; 99284; J7040; J7050

== ENCOUNTER → 2019-07-07 | Day surgery (SDC) | payer MEDICARE, MEDICAID ==
[~2019-07-07] MED LIST changes: -Acetaminophen 325 MG Tab PO SCH; -Albuterol 0.083% 2.5 MG/3 ML Neb Soln NEB ONE; -EPINEPHrine 1 MG/ML SDV ONE; +LORazepam 0.5 MG Tab PO ONE; -Lidocaine 1%/Sod Bicarbonate in NS 8.4% 1 ML Syringe IDERM PRN; -Pregabalin 25 MG Cap PO SCH; -Ropivacaine 0.5% 5 MG/ML 30 ML SDV ONE; -Sodium Chloride 0.9% 10 ML Syringe FLUSH PRN; -oxyCODONE ER 10 MG TAB.ER PO SCH
[2019-07-07] MEDS: Polymyxin B/Trimethoprim 10 ML Bottle EYELF SCH ×4 (07:35→09:40)
[2019-07-07] MEDS: Brimonidine 0.2% Ophth Soln 5 ML Bottle EYELF SCH ×4 (07:40→09:40)
--- NOTE | 2019-07-07 07:44 | PCM.PREANE ---
Preanesthetic Assessment - Anesthesia/Transfusion/Family Hx Anesthesia History: Prior Anesthesia Without Reaction Transfusion History: No Prior Transfusion(s) - Review of Systems General: No Symptoms Pulmonary: Other (asthma, uses inhaler on daily basis. quit smoking 1 month ago) Cardiovascular: No Symptoms Gastrointestinal: No Symptoms Neurological: No Symptoms Other: Reports: Thyroid Problems, Depression (schizophrenia) - Physical Assessment NPO Status Date: 07/06/19 NPO Status Time: 18:00 Height: 1.61 m Weight: 96.162 kg ASA Class: 2 Mental Status: Alert & Oriented x3 Airway Class: Mallampati = 2 Thyro-Mental Finger Breadths: 2 Mouth Opening Finger Breadths: 3 ROM/Head Extension: Limited/Partial Lungs: Clear to Auscultation, Normal Respiratory Effort - Allergies Allergies/Adverse Reactions: Allergies Allergy/AdvReac Type Severity Reaction Status Date / Time dextrose Allergy Rash Verified 07/06/19 16:12 levofloxacin [From Levaquin] Allergy Rash Verified 07/06/19 16:12 naproxen [From Aleve] Allergy Cannot Verified 07/06/19 16:12 Remember fluconazole [From Diflucan] AdvReac dystonia Verified 07/06/19 16:12 - Blood Blood Available: No Product(s) Available: None - Anesthesia Plan Pre-Op Medication Ordered: None - Acknowledgements Anesthesia Type Planned: MAC Pt an Appropriate Candidate for the Planned Anesthesia: Yes Alternatives and Risks of Anesthesia Discussed w Pt/Guardian: Yes Pt/Guardian Understands and Agrees with Anesthesia Plan: Yes PreAnesthesia Questionnaire HEENT History: Reports: Hard of Hearing, Sinusitis Other HEENT History: hearing loss, tonsillitis, pharyngitis, vasomotor rhinitis , deviated septum, wears glasses, has hearing aids Cardiovascular History: Reports: High Cholesterol, Other (See Below) Other Cardiovascular History: palpitations Respiratory History: Reports: Asthma, Bronchitis, Recurrent, Sleep Apnea, SOB, Other (See Below) Other Respiratory History: URI, pleural effusions Gastrointestinal History: Reports: GERD, GI Bleed Genitourinary History: Reports: Urinary Incontinence, UTI, Recurrent, Other ( See Below) Other Genitourinary History: hematuria, UTI, cystitis MARKETING SUPPORT COORDINATOR History: Reports: Therapeutic Other OB/BYN History: right breast biopsy, elective Musculoskeletal History: Reports: Osteoarthritis Other Musculoskeletal History: contusion, costochondritis, back pain, iknee enthesopathy, joint pain, hammertoe, left knee torn meniscus, degenerative joint disease Neurological History: Reports: Headaches, Chronic Psychiatric History: Reports: Addiction, Anxiety, Depression, Schizophrenia Endocrine/Metabolic History: Reports: Hypothyroidism Hematologic History: Reports: Other (See Below) Other Hematologic History: abnormal coagulation studies Immunologic History: Reports: None Oncologic (Cancer) History: Reports: None Dermatologic History: Reports: Other (See Below) Other Dermatologic History: animal bite, foot ulcer - Past Surgical History HEENT Surgical History: Reports: Naso-Sinus Surgery Other HEENT Surgeries/Procedures: deviated septum with surgery Cardiovascular Surgical History: Reports: None Respiratory Surgical History: Reports: None GI Surgical History: Reports: Colonoscopy Female Surgical History: Reports: Breast Biopsy, Hysterectomy, Tubal Ligation Other Female Surgeries/Procedures: right ovary Endocrine Surgical History: Reports: None Neurological Surgical History: Reports: C-Spine Other Neurological Surgeries/Procedures: [id number] Musculoskeletal Surgical History: Reports: Arthroscopic Knee, Hip Replacement Other Musculoskeletal Surgeries/Procedures:: left hip, left knee surgery Oncologic Surgical History: Reports: None Dermatological Surgical History: Reports: None - HOME MEDS Home Medications: Home Meds Aspirin [Halfprin] 81 mg PO DAILY 11/05/13 [History] Esomeprazole [NexIUM] 40 mg PO DAILY 12/21/14 [History] Calcium Carbonate/Vitamin D3 [Calcium 600-Vit D3 800 Tablet] 1 tab PO DAILY [History] Lurasidone HCl [Latuda] 80 mg PO DAILY 07/19/15 [History] Simvastatin [Zocor] 20 mg PO DAILY 07/19/15 [History] Multivitamin [Multivitamins] 1 each PO DAILY 11/12/16 [History] Albuterol [Ventolin HFA] 1 - 2 puff INH Q4H PRN 01/24/18 [History] Fluticasone/Salmeterol [Advair 250-50 Diskus] 1 puff INH BID 01/24/18 [History] Nicotine [Nicotine Patch] 1 patch TOP DAILY 01/24/18 [History] buPROPion [Wellbutrin SR] 150 mg PO DAILY 01/24/18 [History] LORazepam [Ativan] 2 mg PO QPM 01/27/18 [History] Sennosides [Senna] 8.6 mg PO BID PRN tablet 01/27/18 [Rx] Levothyroxine 125 mcg PO ACBREAKFAST 01/28/18 [History] Cholecalciferol (Vitamin D3) [Vitamin D3] 1 cap PO DAILY 05/02/18 [History] Ibuprofen 800 mg PO ASDIRECTED 05/02/18 [History] - CURRENT (IN HOUSE) MEDS Current Meds: Current Medications Brimonidine Tartrate (Alphagan 0.2% Ophth Soln) 0 ml EYELF ASDIRECTED ELVA Stop: 07/07/19 18:00 Cefuroxime Sodium (Zinacef) 0 mg EYELF ASDIRECTED ELVA Stop: 07/07/19 18:00 Lidocaine HCl (Xylocaine-Mpf 1%) 1 ml INJECT ASDIRECTED ELVA Stop: 07/07/19 18:00 Phenylephrine HCl (Yinka-Synephrine 2.5% Ophth Soln) 0 ml EYELF ASDIRECTED ELVA Stop: 07/07/19 18:00 Pilocarpine HCl (Pilocar 4% Ophth Soln) 0 ml EYELF ASDIRECTED ELVA Stop: 07/07/19 18:00 Polymyxin/Trimethoprim Sulfate (Polytrim Ophth Soln) 0 ml EYELF ASDIRECTED ELVA Stop: 07/07/19 18:00 Last Admin: 07/07/19 07:35 Dose: 1 drop Tetracaine HCl (Tetracaine 0.5% Steri-Unit Gabi) 0 ml EYELF ASDIRECTED ELVA Stop: 07/07/19 18:00 Tropicamide (Mydriacyl 1% Ophth Soln) 0 ml EYELF ASDIRECTED ELVA Stop: 07/07/19 18:00
[2019-07-07] MEDS: Phenylephrine 2.5% Ophth Soln 2 ML Bot EYELF SCH ×6 (07:45→09:19)
[2019-07-07] MEDS: Tropicamide 1% Ophth Soln 15 ML Bottle EYELF SCH ×4 (07:50→08:31)
[2019-07-07 08:26] VITALS: BP 140/64; PULSE 55
[2019-07-07] MEDS: Tetracaine HCl/PF 0.5% 4 ML Bottle EYELF SCH ×3 (08:33→09:28)
[2019-07-07] MEDS: Cefuroxime 10 MG/ML SYRINGE EYELF SCH ×2 (08:34→09:39)
[2019-07-07] MEDS: Lidocaine 1% PF 2 ML SDV INJECT SCH ×2 (08:34→09:29)
[2019-07-07] MEDS: Pilocarpine 4% Ophth Soln 15 ML Bot EYELF SCH ×2 (08:34→09:40)
--- NOTE | 2019-07-07 09:41 | PCM48HPAN ---
Post Anesthesia Note - EVALUATION WITHIN 48HRS OF ANESTHETIC Vital Signs in Normal Range: Yes Patient Participated in Evaluation: Yes Respiratory Function Stable: Yes Airway Patent: Yes Cardiovascular Function Stable: Yes Hydration Status Stable: Yes Pain Control Satisfactory: Yes Nausea and Vomiting Control Satisfactory: Yes Mental Status Recovered: Yes Vital Signs: Last Vital Signs Temp 36.6 C 07/07/19 07:25 Pulse 55 L 07/07/19 07:25 Resp 16 07/07/19 07:25 BP 140/64 07/07/19 07:25 Pulse Ox 95 07/07/19 07:25
== END ==
LOC: JD.SDS 07:16
PROVIDERS: ATTEND Ophthalmology
DX: H25.813 Combined forms of age-related cataract, bilateral (principal); H21.81 Floppy iris syndrome; H21.42 Pupillary membranes, left eye; H16.103 Unspecified superficial keratitis, bilateral; H16.223 Keratoconjunctivitis sicca, not specified as Sjogren's, bilateral; H02.834 Dermatochalasis of left upper eyelid; H02.831 Dermatochalasis of right upper eyelid; H50.51 Esophoria; I10 Essential (primary) hypertension; E78.00 Pure hypercholesterolemia, unspecified; E07.9 Disorder of thyroid, unspecified; J45.909 Unspecified asthma, uncomplicated; K21.9 Gastro-esophageal reflux disease without esophagitis; F41.9 Anxiety disorder, unspecified; F32.9 Major depressive disorder, single episode, unspecified; F20.9 Schizophrenia, unspecified; M19.90 Unspecified osteoarthritis, unspecified site; Z88.1 Allergy status to other antibiotic agents; Z88.6 Allergy status to analgesic agent; Z87.891 Personal history of nicotine dependence; Z79.82 Long term (current) use of aspirin; Z79.899 Other long term (current) drug therapy
CPT/HCPCS: 66982; A9270; J0697; J2001; V2632

== ENCOUNTER 2019-08-11 08:11 | Day surgery (SDC) | payer MEDICARE, MEDICAID ==
[~2019-08-11 08:11] MED LIST changes: +Lidocaine 1% PF 2 ML SDV INJECT SCH
[2019-08-11] MEDS: Polymyxin B/Trimethoprim 10 ML Bottle EYERT SCH ×4 (08:53→10:50)
[2019-08-11] MEDS: Brimonidine 0.2% Ophth Soln 5 ML Bottle EYERT SCH ×4 (08:58→10:50)
[2019-08-11] MEDS: Phenylephrine 2.5% Ophth Soln 2 ML Bot EYERT SCH ×5 (09:05→10:26)
--- NOTE | 2019-08-11 09:08 | PCM.PREANE ---
Preanesthetic Assessment - Anesthesia/Transfusion/Family Hx Anesthesia History: Prior Anesthesia Without Reaction Family History of Anesthesia Reaction: No Transfusion History: No Prior Transfusion(s) - Review of Systems General: Fatigue Pulmonary: No Symptoms (Daily smoker) Cardiovascular: No Symptoms (Hypertension, elevated cholesterol) Gastrointestinal: Other (GERD, non today.) Neurological: Other (Slow gait) Other: Reports: Thyroid Problems, Depression (Schitzophrenia), Anxiety - Physical Assessment NPO Status Date: 08/10/19 NPO Status Time: 16:00 ASA Class: 2 Mental Status: Alert & Oriented x3 Airway Class: Mallampati = 2 Dentition: Reports: Normal Dentition Thyro-Mental Finger Breadths: 3 Mouth Opening Finger Breadths: 3 ROM/Head Extension: Full Lungs: Clear to Auscultation, Normal Respiratory Effort - Allergies Allergies/Adverse Reactions: Allergies Allergy/AdvReac Type Severity Reaction Status Date / Time dextrose Allergy Rash Verified 07/06/19 16:12 levofloxacin [From Levaquin] Allergy Rash Verified 07/06/19 16:12 naproxen [From Aleve] Allergy Cannot Verified 07/06/19 16:12 Remember fluconazole [From Diflucan] AdvReac dystonia Verified 07/06/19 16:12 - Anesthesia Plan Pre-Op Medication Ordered: Anxiolytic, Other (0.5 mg PO ativan for anxiolytic, requested per patient. Worked well for her previous cataract extraction and she would like the same today. ) - Acknowledgements Anesthesia Type Planned: MAC Pt an Appropriate Candidate for the Planned Anesthesia: Yes Alternatives and Risks of Anesthesia Discussed w Pt/Guardian: Yes Pt/Guardian Understands and Agrees with Anesthesia Plan: Yes PreAnesthesia Questionnaire HEENT History: Reports: Hard of Hearing, Sinusitis Other HEENT History: hearing loss, tonsillitis, pharyngitis, vasomotor rhinitis , deviated septum, wears glasses, has hearing aids Cardiovascular History: Reports: High Cholesterol, Other (See Below) Other Cardiovascular History: palpitations Respiratory History: Reports: Asthma, Bronchitis, Recurrent, Sleep Apnea, SOB, Other (See Below) Other Respiratory History: URI, pleural effusions Gastrointestinal History: Reports: GERD, GI Bleed Genitourinary History: Reports: Urinary Incontinence, UTI, Recurrent, Other ( See Below) Other Genitourinary History: hematuria, UTI, cystitis DAMAGE 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: 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: 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 Other OB/BYN History: right breast biopsy, elective Musculoskeletal History: Reports: Osteoarthritis Other Musculoskeletal History: contusion, costochondritis, back pain, iknee enthesopathy, joint pain, hammertoe, left knee torn meniscus, degenerative joint disease Neurological History: Reports: Headaches, Chronic Psychiatric History: Reports: Addiction, Anxiety, Depression, Schizophrenia Endocrine/Metabolic History: Reports: Hypothyroidism Hematologic History: Reports: Other (See Below) Other Hematologic History: abnormal coagulation studies Immunologic History: Reports: None Oncologic (Cancer) History: Reports: None Dermatologic History: Reports: Other (See Below) Other Dermatologic History: animal bite, foot ulcer - Past Surgical History HEENT Surgical History: Reports: Naso-Sinus Surgery Other HEENT Surgeries/Procedures: deviated septum with surgery Cardiovascular Surgical History: Reports: None Respiratory Surgical History: Reports: None GI Surgical History: Reports: Colonoscopy Female Surgical History: Reports: Breast Biopsy, Hysterectomy, Tubal Ligation Other Female Surgeries/Procedures: right ovary Endocrine Surgical History: Reports: None Neurological Surgical History: Reports: C-Spine Other Neurological Surgeries/Procedures: [id number] Musculoskeletal Surgical History: Reports: Arthroscopic Knee, Hip Replacement Other Musculoskeletal Surgeries/Procedures:: left hip, left knee surgery Oncologic Surgical History: Reports: None Dermatological Surgical History: Reports: None - HOME MEDS Home Medications: Home Meds Aspirin [Halfprin] 81 mg PO DAILY 11/05/13 [History] Esomeprazole [NexIUM] 40 mg PO DAILY 12/21/14 [History] Calcium Carbonate/Vitamin D3 [Calcium 600-Vit D3 800 Tablet] 1 tab PO DAILY [History] Simvastatin [Zocor] 20 mg PO DAILY 07/19/15 [History] Multivitamin [Multivitamins] 1 each PO DAILY 11/12/16 [History] Albuterol [Ventolin HFA] 1 - 2 puff INH Q4H PRN 01/24/18 [History] Fluticasone/Salmeterol [Advair 250-50 Diskus] 1 puff INH BID 01/24/18 [History] LORazepam [Ativan] 2 mg PO QPM 01/27/18 [History] Sennosides [Senna] 8.6 mg PO BID PRN tablet 01/27/18 [Rx] Levothyroxine 125 mcg PO ACBREAKFAST 01/28/18 [History] Cholecalciferol (Vitamin D3) [Vitamin D3] 1 cap PO DAILY 05/02/18 [History] Escitalopram [Lexapro] 20 mg PO DAILY 08/07/19 [History] Losartan [Cozaar] 50 mg PO DAILY 08/07/19 [History] risperiDONE [Risperdal] 2 mg PO DAILY 08/07/19 [History] - CURRENT (IN HOUSE) MEDS Current Meds: Current Medications Brimonidine Tartrate (Alphagan 0.2% Ophth Soln) 0 ml EYERT ASDIRECTED ELVA Stop: 08/11/19 18:00 Cefuroxime Sodium (Zinacef) 0 mg EYERT ASDIRECTED ELVA Stop: 08/11/19 18:00 Lidocaine HCl (Xylocaine-Mpf 1%) 0 ml INJECT ASDIRECTED ELVA Stop: 08/11/19 18:00 Phenylephrine HCl (Yinka-Synephrine 2.5% Ophth Soln) 0 ml EYERT ASDIRECTED ELVA Stop: 08/11/19 18:00 Pilocarpine HCl (Pilocar 4% Ophth Soln) 0 ml EYERT ASDIRECTED ELVA Stop: 08/11/19 18:00 Polymyxin/Trimethoprim Sulfate (Polytrim Ophth Soln) 0 ml EYERT ASDIRECTED ELVA Stop: 08/11/19 18:00 Tetracaine HCl (Tetracaine 0.5% Steri-Unit Gabi) 0 ml EYERT ASDIRECTED ELVA Stop: 08/11/19 18:00 Tropicamide (Mydriacyl 1% Ophth Soln) 0 ml EYERT ASDIRECTED ELVA Stop: 08/11/19 18:00 Discontinued Medications Lorazepam (Ativan) 0.5 mg PO ONETIME ONE Stop: 08/11/19 08:01
[2019-08-11] MEDS: Tropicamide 1% Ophth Soln 15 ML Bottle EYERT SCH ×4 (09:10→09:56)
[2019-08-11] MEDS: Tetracaine HCl/PF 0.5% 4 ML Bottle EYERT SCH ×3 (10:09→10:36)
[2019-08-11] MEDS: Cefuroxime 10 MG/ML SYRINGE EYERT SCH ×2 (10:42→10:49)
[2019-08-11] MEDS: Pilocarpine 4% Ophth Soln 15 ML Bot EYERT SCH ×2 (10:43→10:50)
--- NOTE | 2019-08-11 10:51 | PCM48HPAN ---
Post Anesthesia Note - EVALUATION WITHIN 48HRS OF ANESTHETIC Vital Signs in Normal Range: Yes Patient Participated in Evaluation: Yes Respiratory Function Stable: Yes Airway Patent: Yes Cardiovascular Function Stable: Yes Hydration Status Stable: Yes Pain Control Satisfactory: Yes Nausea and Vomiting Control Satisfactory: Yes Mental Status Recovered: Yes Vital Signs: Last Vital Signs Temp 37.0 C 08/11/19 08:48 Pulse 69 08/11/19 08:48 Resp 16 08/11/19 08:48 BP 144/71 H 08/11/19 08:48 Pulse Ox 96 08/11/19 08:48
[2019-08-11 11:03] VITALS: BP 158/70; PULSE 68
== END 2019-08-11 11:00 | disposition home or self-care (01) ==
LOC: JD.SDS 08:11
PROVIDERS: ATTEND Ophthalmology
DX: H25.811 Combined forms of age-related cataract, right eye (principal); H52.31 Anisometropia; H21.81 Floppy iris syndrome; H50.51 Esophoria; I10 Essential (primary) hypertension; E78.00 Pure hypercholesterolemia, unspecified; K21.9 Gastro-esophageal reflux disease without esophagitis; J45.909 Unspecified asthma, uncomplicated; G47.30 Sleep apnea, unspecified; E03.9 Hypothyroidism, unspecified; F41.9 Anxiety disorder, unspecified; F32.9 Major depressive disorder, single episode, unspecified; M19.90 Unspecified osteoarthritis, unspecified site; Z87.891 Personal history of nicotine dependence; Z88.6 Allergy status to analgesic agent; Z88.1 Allergy status to other antibiotic agents; Z88.8 Allergy status to other drugs, medicaments and biological substances; Z79.82 Long term (current) use of aspirin; Z79.51 Long term (current) use of inhaled steroids; Z79.899 Other long term (current) drug therapy; Z96.1 Presence of intraocular lens; Z98.42 Cataract extraction status, left eye
CPT/HCPCS: 66982; A9270; J0697; J2001; V2632

== ENCOUNTER 2020-03-07 08:16 | Day surgery (SDC) | payer MEDICARE, MEDICAID, OTHER ==
[~2020-03-07 08:16] MED LIST changes: +Acetaminophen 325 MG Tab PO SCH; +Bisacodyl 5 MG Tab PO PRN; -LORazepam 0.5 MG Tab PO ONE; +Lactated Ringers 1,000 ML IV SCH; -Lidocaine 1% PF 2 ML SDV INJECT SCH; +Lidocaine 1%/Sod Bicarbonate in NS 8.4% 1 ML Syringe IDERM PRN; +Magnesium Hydroxide 400 MG/5 ML Susp 30 ML Cup PO PRN; +Morphine 2 MG/ML SYRINGE IVPUSH PRN; +Naloxone 0.4 MG/ML SDV IVPUSH PRN; +Ondansetron 4 MG/2 ML SDV IVPUSH PRN; +Pregabalin 25 MG Cap PO SCH; +Sennosides 8.6 MG Tab PO PRN; +Sodium Chloride 0.9% 10 ML Syringe FLUSH PRN; +oxyCODONE ER 10 MG TAB.ER PO SCH
[2020-03-07] MEDS ORDERED: Ropivacaine 0.5% 5 MG/ML 30 ML SDV ONE (09:06)
[2020-03-07] MEDS ORDERED: EPINEPHrine 1 MG/ML SDV ONE (09:06)
[2020-03-07] MEDS ORDERED: Vancomycin 1 GM SDV ONE (09:30)
[2020-03-07] MEDS ORDERED: Bupivacaine 0.25% 10 ML SDV ONE (09:30)
[2020-03-07] MEDS ORDERED: Albuterol 0.083% 2.5 MG/3 ML Neb Soln NEB ONE (09:34)
--- NOTE | 2020-03-07 09:53 | PCM.PREANE ---
Preanesthetic Assessment - Procedure Proposed Procedure: Left Total Knee Replacement - Anesthesia/Transfusion/Family Hx Anesthesia History: Prior Anesthesia Reaction Type of Anesthesia Reaction: Other (see below) (Panic Attach in PACU ) Family History of Anesthesia Reaction: No Transfusion History: No Prior Transfusion(s) - Review of Systems General: No Symptoms Pulmonary: Shortness of Breath (Smoker 1 ppd, Sleep Apnea with CPAP use.), Cough (Mornings mostly, sometimes productive. ), Other (Asthma) Cardiovascular: No Symptoms Gastrointestinal: Other (GERD) Neurological: Pre-Existing Deficit (Cervical Spine Surgery C3-C6.), Change in Speech (Slow speach, prefers if you talk to her slower. ) Other: Reports: None (Obesity BMI 40), Thyroid Problems (Hypothyroidism ), Depression (Schitzophrenia), Anxiety - Physical Assessment NPO Status Date: 03/07/20 NPO Status Time: 19:00 Vital Signs: Last Vital Signs Temp 36.2 C 03/07/20 08:25 Pulse 62 03/07/20 08:25 Resp 16 03/07/20 08:25 BP 134/63 03/07/20 08:25 Pulse Ox 94 L 03/07/20 08:25 Height: 1.6 m Weight: 102.965 kg ASA Class: 3 Mental Status: Alert & Oriented x3 Airway Class: Mallampati = 3 Dentition: Reports: Caries (chipped front incisors) Thyro-Mental Finger Breadths: 2 Mouth Opening Finger Breadths: 2 ROM/Head Extension: Limited/Partial (Due to cervical spine fusion in 2012.) Lungs: Clear to Auscultation, Normal Respiratory Effort, Decreased Breath Sounds Cardiovascular: Regular Rate, Regular Rhythm - Lab Values: Laboratory Last Values COVID-19 PCR Not detected (NOT DETECT) 03/03/20 11:00 MRSA (PCR) Negative 02/17/20 15:59 - Allergies Allergies/Adverse Reactions: Allergies Allergy/AdvReac Type Severity Reaction Status Date / Time aripiprazole [From Abilify] Allergy Cannot Verified 03/06/20 19:09 Remember bupropion [From Wellbutrin] Allergy Cannot Verified 03/06/20 19:09 Remember dextrose Allergy Rash Verified 03/06/20 19:09 ibuprofen Allergy Cannot Verified 03/06/20 19:09 Remember levofloxacin [From Levaquin] Allergy Rash Verified 08/16/20 19:09 naproxen [From Aleve] Allergy Cannot Verified 03/06/20 19:09 Remember fluconazole [From Diflucan] AdvReac dystonia Verified 03/06/20 19:09 - Anesthesia Plan Beta Pretty: Metoprolol Med Last Dose Date: 03/06/20 Med Last Dose Time: 17:00 - Acknowledgements Anesthesia Type Planned: Spinal Pt an Appropriate Candidate for the Planned Anesthesia: Yes Alternatives and Risks of Anesthesia Discussed w Pt/Guardian: Yes Pt/Guardian Understands and Agrees with Anesthesia Plan: Yes Additional Comments: Previous Total Knee Surgery tolerated spinal well. Reqesting ativan if possible after surgery as she remembers having a panic attach while in recovery. PreAnesthesia Questionnaire HEENT History: Reports: Hard of Hearing, Sinusitis, Other (See Below) Other HEENT History: hearing loss, tonsillitis, pharyngitis, vasomotor rhinitis, deviated septum, wears glasses, has hearing aids Cardiovascular History: Reports: High Cholesterol, Other (See Below) Other Cardiovascular History: palpitations Respiratory History: Reports: Asthma, Bronchitis, Recurrent, Sleep Apnea, SOB, Other (See Below) Other Respiratory History: URI, pleural effusions, uses CPAP Gastrointestinal History: Reports: GERD, GI Bleed, Other (See Below) Other Gastrointestinal History: small bowel obstruction Genitourinary History: Reports: Urinary Incontinence, UTI, Recurrent, Other (See Below) Other Genitourinary History: hematuria, UTI, cystitis COLOR 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: 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 Other OB/BYN History: right breast biopsy, elective , atrophic vaginitis, genital herpes Musculoskeletal History: Reports: Back Pain, Chronic, Osteoarthritis Other Musculoskeletal History: contusion, costochondritis, back pain, knee enthesopathy, joint pain, hammertoe, left knee torn meniscus, degenerative joint disease Neurological History: Reports: Headaches, Chronic Psychiatric History: Reports: Addiction, Anxiety, Depression, Schizophrenia Endocrine/Metabolic History: Reports: Hypothyroidism Hematologic History: Reports: Other (See Below) Other Hematologic History: abnormal coagulation studies Immunologic History: Reports: None Oncologic (Cancer) History: Reports: None Dermatologic History: Reports: Other (See Below) Other Dermatologic History: animal bite, foot ulcer - Infectious Disease History Infectious Disease History: Reports: Rubella - Past Surgical History Head Surgeries/Procedures: Reports: None HEENT Surgical History: Reports: Cataract Surgery, Naso-Sinus Surgery Other HEENT Surgeries/Procedures: deviated septum with surgery Cardiovascular Surgical History: Reports: None Respiratory Surgical History: Reports: None GI Surgical History: Reports: Colonoscopy Female Surgical History: Reports: Breast Biopsy, Hysterectomy, Tubal Ligation Other Female Surgeries/Procedures: right ovary Male Surgical History: Reports: None Endocrine Surgical History: Reports: None Neurological Surgical History: Reports: C-Spine Other Neurological Surgeries/Procedures: C3456 fusion with hardware Musculoskeletal Surgical History: Reports: Arthroscopic Knee, Hip Replacement, Knee Replacement Other Musculoskeletal Surgeries/Procedures:: left hip replacement, left knee surgery, right total knee replacement Oncologic Surgical History: Reports: None Dermatological Surgical History: Reports: None - SUBSTANCE USE Smoking Status *Q: Current Every Day Smoker Recreational Drug Use History: No - HOME MEDS Home Medications: Home Meds Aspirin [Halfprin] 81 mg PO DAILY 11/05/13 [History] Simvastatin [Zocor] 20 mg PO DAILY 07/19/15 [History] Albuterol [Ventolin HFA] 1 - 2 puff INH Q4H PRN 01/24/18 [History] Fluticasone Propion/Salmeterol [Advair 250-50 Diskus] 1 puff INH DAILY 01/24/18 [History] LORazepam [Ativan] 1 - 2 mg PO BID PRN 01/27/18 [History] Levothyroxine 125 mcg PO ACBREAKFAST 01/28/18 [History] Cholecalciferol (Vitamin D3) [Vitamin D3] 5,000 unit PO DAILY 05/02/18 [History] risperiDONE [Risperdal] 2 mg PO DAILY 08/07/19 [History] DULoxetine [Cymbalta] 30 mg PO DAILY 03/06/20 [History] DULoxetine [Cymbalta] 60 mg PO DAILY 03/06/20 [History] Docusate Sodium [Colace] 100 mg PO DAILY PRN 03/06/20 [History] Gabapentin [Neurontin] 200 mg PO BID 03/06/20 [History] Metoprolol Succinate 50 mg PO DAILY 03/06/20 [History] Omeprazole 40 mg PO QAM 03/06/20 [History] Potassium Chloride 10 meq PO DAILY 03/06/20 [History] Temazepam 15 mg PO BEDTIME 03/06/20 [History] - CURRENT (IN HOUSE) MEDS Current Meds: Current Medications Acetaminophen (Tylenol) 975 mg PO ONETIME [facility] Stop: 03/07/20 16:00 Last Admin: 03/07/20 08:28 Dose: 975 mg Documented by: Bisacodyl (Dulcolax) 5 mg PO DAILY PRN PRN Reason: Constipation Morphine Sulfate 8 mg/Epinephrine HCl 0.3 mg/Cefuroxime Sodium 750 mg/Sodium Chloride 8.9 ml 0 mg .XX ASDIRECTED PRN PRN Reason: Pain Cyclobenzaprine HCl (Flexeril) 5 mg PO TID PRN PRN Reason: Spasms Docusate Sodium (Colace) 100 mg PO BID [facility]VA Famotidine (Pepcid) 20 mg PO Q12H [facility] Lactated Ringer's (Ringers, Lactated) 1,000 mls @ 125 mls/hr IV ASDIRECTED [facility] Stop: 03/07/20 23:00 Last Admin: 03/07/20 08:40 Dose: 125 mls/hr Documented by: Cefazolin Sodium/Dextrose 2 gm (/ Premix) 50 mls @ 100 mls/hr IV Q8H [facility] Stop: 03/07/20 23:14 Lidocaine/Sodium Bicarbonate (Buffered Lidocaine 1% In Ns 8.4%) 0.25 ml IDERM ONETIME PRN PRN Reason: Prior to IV Start Stop: 03/07/20 18:00 Last Admin: 03/07/20 08:40 Dose: 0.25 ml Documented by: Magnesium Hydroxide (Milk Of Magnesia) 30 ml PO BID PRN PRN Reason: Constipation Morphine Sulfate (Morphine) 2 mg IVPUSH Q2H PRN PRN Reason: Breakthrough Pain Naloxone HCl (Narcan) 0.1 mg IVPUSH Q5M PRN PRN Reason: Oversedation Ondansetron HCl (Zofran) 4 mg IVPUSH Q6H PRN PRN Reason: Nausea/Vomiting Oxycodone HCl (Oxycontin) 10 mg PO ONETIME [facility] Stop: 03/07/20 18:00 Last Admin: 03/07/20 08:26 Dose: 10 mg Documented by: Oxycodone/Acetaminophen (Percocet 325-5 Mg) 1 - 2 tab PO Q4H PRN PRN Reason: Pain Pregabalin (Lyrica) 50 mg PO ONETIME [facility] Stop: 03/07/20 18:00 Last Admin: 03/07/20 08:26 Dose: 50 mg Documented by: Rivaroxaban (Xarelto) 10 mg PO DAILY [facility] Senna (Senna) 8.6 mg PO BID PRN PRN Reason: Constipation Sodium Chloride (Saline Flush) 10 ml FLUSH ASDIRECTED PRN PRN Reason: Keep Vein Open Stop: 03/07/20 18:00 Discontinued Medications Albuterol (Proventil Neb Soln) 2.5 mg NEB ONETIME ONE Stop: 03/07/20 09:35 Bupivacaine HCl (Sensorcaine-Mpf 0.25%) Confirm Administered Dose 30 ml .ROUTE .STK-MED ONE Stop: 03/07/20 09:31 Cefazolin Sodium (Ancef) Confirm Administered Dose 2 gm .ROUTE .STK-MED ONE Stop: 03/07/20 09:31 Epinephrine HCl (Adrenalin) Confirm Administered Dose 1 mg .ROUTE .STK-MED ONE Stop: 03/07/20 09:07 Iodine (Iodine 2% Mild Tincture) Confirm Administered Dose 30 ml .ROUTE .STK-MED ONE Stop: 03/07/20 09:31 Ropivacaine (Naropin 0.5%) Confirm Administered Dose 30 ml .ROUTE .STK-MED ONE Stop: 03/07/20 09:07 Tranexamic Acid (Cyklokapron) Confirm Administered Dose 1,000 mg .ROUTE .STK-MED ONE Stop: 03/07/20 09:31 Vancomycin HCl (Vancomycin) Confirm Administered Dose 1 gm .ROUTE .STK-MED ONE Stop: 03/07/20 09:31
[2020-03-07] MEDS ORDERED: Ondansetron 4 MG/2 ML SDV ONE (10:02)
[2020-03-07] MEDS ORDERED: fentaNYL 100 MCG/2 ML SDV ONE (10:02)
[2020-03-07] MEDS ORDERED: Propofol 200 MG/20 ML SDV ONE ×3 (10:02→11:37)
[2020-03-07] MEDS ORDERED: Midazolam 1 MG/ML 2 ML SDV ONE (10:02)
[2020-03-07] MEDS ORDERED: ceFAZolin 1 GM Vial ONE (10:03)
[2020-03-07] MEDS ORDERED: Lidocaine 1% 4 ML ONE (10:10)
[2020-03-07] MEDS ORDERED: Iodine/Sodium Iodide 2% Tincture 30 ML Bottle ONE (10:11)
[2020-03-07] MEDS ORDERED: ePHEDrine Sulfate/0.9% NaCl/Pf 25 MG/5 ML SYRINGE IV ONE (10:55)
[2020-03-07] MEDS ORDERED: Lactated Ringers 1,000 ML ONE (10:59)
[2020-03-07] MEDS: Iodine/Sodium Iodide 2% Tincture 30 ML Bottle ONE ×2 (11:30→11:36)
[2020-03-07] MEDS: ceFAZolin 1 GM Vial ONE ×2 (11:31→11:38)
[2020-03-07] MEDS: Morphine 8 MG, EPINEPHrine 0.3 MG, Cefuroxime 750 MG, Sodium Chloride 0.9% 8.9 ML PRN ×8 (11:32→11:42)
[2020-03-07] MEDS: Vancomycin 1 GM SDV ONE ×2 (11:32→11:45)
[2020-03-07] MEDS: Bupivacaine 0.25% 10 ML SDV ONE ×2 (11:32→11:43)
--- NOTE | 2020-03-07 12:26 | PCM.POSTAN ---
POST ANESTHESIA ASSESSMENT - MENTAL STATUS Mental Status: Alert, Oriented - VITAL SIGNS Vital Signs: Last Vital Signs Temp 37.1 C 03/07/20 12:11 Pulse 79 03/07/20 12:15 Resp 14 03/07/20 12:15 BP 82/51 L 03/07/20 12:15 Pulse Ox 96 03/07/20 12:19 - RESPIRATORY Respiratory Status: Respiratory Rate WNL, Airway Patent, O2 Saturation Stable, Supplemental Oxygen - CARDIOVASCULAR CV Status: Pulse Rate WNL, Blood Pressure Stable - GASTROINTESTINAL GI Status: No Symptoms - PAIN Pain Score: 0 - POST OP HYDRATION Hydration Status: Adequate & Stable - OBSERVATIONS Free Text/Narrative:: no anesthesia complications noted
--- NOTE | 2020-03-07 12:53 | PCM.SN.2 ---
- Free Text/Narrative Note: Left selective femoral nerve block at the adductor canal for post-procedure pain control under US guidance requested by Dr. Mcdonald. Date: 03/07/2020 Time Out: 1235 Start: 1235 End: 1244 Chart reviewed. Consent signed. Questions answered. Appropriate monitors applied. Time out performed. Left mid-shaft femur identified with ultrasound, scanning medially of femur, the femoral artery in the adductor canal visualized, and the femoral nerve located laterally to the artery. The skin was prepped lateral to the ultrasound probe with chlorahexadine times two. The 21ga [id number] insulated block needle was inserted under direct ultrasound guidance into the adductor canal. 25mL of 0.5% ropivacaine with 1:200,000 epinephrine was injected circumferentially around the nerve with intermittent negative aspiration noted. Patient tolerated the procedure well. Sterile technique noted along with sterile gloves, mask, and sterile probe cover. See picture on progress note and vital signs on nurses notes. Block completed in PACU. Arnie Lundberg CRNA
--- NOTE | 2020-03-07 13:41 | CR ---
Left knee: AP and lateral views left knee were obtained. Comparison: No prior left knee study. Medial and lateral joint compartments are maintained in height. Underlying bony structures are intact. Soft tissue air is noted from the surgical procedure. Impression: 1. Satisfactory postoperative radiographic appearance of recently placed left knee prosthesis. Diagnostic code #2 This report was dictated in MDT
[2020-03-07] MEDS: Famotidine 20 MG Tab PO SCH ×2 (14:03→17:50)
[2020-03-07] MEDS: Acetaminophen/oxyCODONE 325-5 MG Tab PO PRN ×2 (14:51→20:53)
[2020-03-07] MEDS ORDERED: Non-Formulary Medication 1 Each (Albuterol 0 PUFF) INH PRN (14:52)
[2020-03-07] MEDS ORDERED: LORazepam 1 MG Tab PO PRN (14:52)
[2020-03-07] MEDS: Nicotine 21 MG/24 Hr Patch TRDERM SCH (16:04)
[2020-03-07] MEDS ORDERED: Metoprolol Succinate 50 MG Tab.ER PO SCH (17:00)
[2020-03-07] MEDS: ceFAZolin 2 GM in Premix Bag 1 BAG IV SCH (17:08)
[2020-03-07] MEDS: Cyclobenzaprine 10 MG Tab PO PRN (17:08)
[2020-03-07] MEDS: Docusate Sodium 100 MG Cap PO SCH (20:49)
[2020-03-07] MEDS: Gabapentin 100 MG Cap PO SCH (20:54)
[2020-03-07] MEDS ORDERED: Cholecalciferol (Vitamin D3) 5,000 UNIT Tab PO SCH (21:00)
[2020-03-07] MEDS ORDERED: Simvastatin 20 MG Tab PO SCH (21:00)
[2020-03-07] MEDS ORDERED: Potassium Chloride 10 MEQ Tab.ER PO SCH (21:00)
[2020-03-07] MEDS ORDERED: risperiDONE 1 MG Tab PO SCH (21:00)
[2020-03-07] MEDS ORDERED: Pantoprazole 40 MG Tab.CR PO SCH (21:00)
[2020-03-08] MEDS: Cyclobenzaprine 10 MG Tab PO PRN (01:00)
[2020-03-08] MEDS: ceFAZolin 2 GM in Premix Bag 1 BAG IV SCH ×2 (01:07→09:23)
[2020-03-08] MEDS ORDERED: Levothyroxine 125 MCG Tab PO SCH (06:00)
[2020-03-08] MEDS: Famotidine 20 MG Tab PO SCH (06:30)
[2020-03-08] MEDS: Acetaminophen/oxyCODONE 325-5 MG Tab PO PRN ×2 (06:40→11:23)
--- NOTE | 2020-03-08 08:17 | PCM.SURGPN ---
- General Info Date of Service: 03/08/20 POD#: 1 Functional Status: Reports: Pain Controlled, Tolerating Diet, Ambulating, Urinating, Incentive Spirometry - Review of Systems General: Denies: Fever, Chills Pulmonary: Denies: Shortness of Breath Cardiovascular: Denies: Chest Pain Gastrointestinal: Denies: Abdominal Pain Genitourinary: Denies: Dysuria - Patient Data Vitals - Most Recent: Last Vital Signs Temp 99.7 F 03/08/20 06:28 Pulse 74 03/08/20 06:28 Resp 20 03/08/20 06:28 BP 120/54 L 03/08/20 06:28 Pulse Ox 92 L 03/08/20 08:06 Weight - Most Recent: 227 lb I&O - Last 24 Hours: Intake & Output 03/07/20 03/08/20 03/08/20 22:59 06:59 14:59 Intake Total 480 Balance 480 Lab Results Last 24 Hrs: Laboratory Results - last 24 hr 03/08/20 03/08/20 Range/Units 05:50 05:50 WBC 6.92 (3.98-10.04) K/mm3 RBC 4.53 (3.98-5.22) M/mm3 Hgb 12.5 D (11.2-15.7) gm/dl Hct 38.8 (34.1-44.9) % MCV 85.7 (79.4-94.8) fl MCH 27.6 (25.6-32.2) pg MCHC 32.2 (32.2-35.5) g/dl RDW Std Deviation 44.6 (36.4-46.3) fL Plt Count 228 D (182-369) K/mm3 MPV 9.7 (9.4-12.3) fl Sodium 138 (136-145) mEq/L Potassium 3.9 (3.5-5.1) mEq/L Chloride 104 (98-107) mEq/L Carbon Dioxide 25 (21-32) mEq/L Anion Gap 12.9 (5-15) BUN 6 L (7-18) mg/dL Creatinine 0.8 (0.55-1.02) mg/dL Est Cr Clr Drug Dosing 61.86 mL/min Estimated GFR (MDRD) > 60 (>60) mL/min BUN/Creatinine Ratio 7.5 L (14-18) Glucose 118 H (74-106) mg/dL Calcium 8.1 L (8.5-10.1) mg/dL Total Bilirubin 0.3 (0.2-1.0) mg/dL AST 17 (15-37) U/L ALT 17 (14-59) U/L Alkaline Phosphatase 98 (46-116) U/L Total Protein 6.3 L (6.4-8.2) g/dl Albumin 3.0 L (3.4-5.0) g/dl Globulin 3.3 gm/dL Albumin/Globulin Ratio 0.9 L (1-2) Med Orders - Current: Current Medications Bisacodyl (Dulcolax) 5 mg PO DAILY PRN PRN Reason: Constipation Cholecalciferol (Vitamin D3) 5,000 unit PO BEDTIME [facility] Last Admin: 03/07/20 20:51 Dose: 5,000 unit Documented by: Cyclobenzaprine HCl (Flexeril) 5 mg PO TID PRN PRN Reason: Spasms Last Admin: 03/08/20 01:00 Dose: 5 mg Documented by: Docusate Sodium (Colace) 100 mg PO BID [facility] Last Admin: 03/07/20 20:49 Dose: 100 mg Documented by: Duloxetine HCl (Cymbalta) 30 mg PO DAILY [facility] Duloxetine HCl (Cymbalta) 60 mg PO DAILY [facility] Famotidine (Pepcid) 20 mg PO Q12H [facility] Last Admin: 03/08/20 06:30 Dose: 20 mg Documented by: Gabapentin (Neurontin) 200 mg PO BID [facility] Last Admin: 03/07/20 20:54 Dose: Not Given Documented by: Cefazolin Sodium/Dextrose 2 gm (/ Premix) 50 mls @ 100 mls/hr IV Q8H [facility] Stop: 03/08/20 10:29 Last Admin: 03/08/20 01:07 Dose: 100 mls/hr Documented by: Levothyroxine Sodium (Levothyroxine) 125 mcg PO ACBREAKFAST [facility] Last Admin: 03/08/20 06:30 Dose: 125 mcg Documented by: Lorazepam (Ativan) 1 - 2 mg PO BID PRN PRN Reason: Anxiety Magnesium Hydroxide (Milk Of Magnesia) 30 ml PO BID PRN PRN Reason: Constipation Metoprolol Succinate (Toprol Xl) 50 mg PO DAILY@1700 [facility] Last Admin: 03/07/20 16:06 Dose: 50 mg Documented by: Miscellaneous Information (Remove Patch) 0 ea TRDERM DAILY [facility] Morphine Sulfate (Morphine) 2 mg IVPUSH Q2H PRN PRN Reason: Breakthrough Pain Naloxone HCl (Narcan) 0.1 mg IVPUSH Q5M PRN PRN Reason: Oversedation Nicotine (Habitrol) 21 mg TRDERM DAILY [facility] Last Admin: 03/07/20 16:04 Dose: 21 mg Documented by: Non-Formulary Medication (Albuterol) 1 - 2 puff INH Q4H PRN PRN Reason: Shortness of Breath Non-Formulary Medication (Fluticasone/Salmeterol) 1 puff INH DAILY [facility] Ondansetron HCl (Zofran) 4 mg IVPUSH Q6H PRN PRN Reason: Nausea/Vomiting Oxycodone/Acetaminophen (Percocet 325-5 Mg) 1 - 2 tab PO Q4H PRN PRN Reason: Pain Last Admin: 03/08/20 06:40 Dose: 2 tab Documented by: Pantoprazole Sodium (Protonix) 40 mg PO BEDTIME [facility] Last Admin: 03/07/20 21:03 Dose: 40 mg Documented by: Potassium Chloride (Klor-Con 10) 10 meq PO BEDTIME [facility] Last Admin: 03/07/20 20:51 Dose: 10 meq Documented by: Risperidone (Risperidal) 2 mg PO BEDTIME [facility] Last Admin: 03/07/20 20:52 Dose: 2 mg Documented by: Rivaroxaban (Xarelto) 10 mg PO DAILY [facility] Senna (Senna) 8.6 mg PO BID PRN PRN Reason: Constipation Simvastatin (Zocor) 20 mg PO BEDTIME [facility] Last Admin: 03/07/20 20:51 Dose: 20 mg Documented by: Discontinued Medications Acetaminophen (Tylenol) 975 mg PO ONETIME [facility] Stop: 03/07/20 16:00 Last Admin: 03/07/20 08:28 Dose: 975 mg Documented by: Albuterol (Proventil Neb Soln) 2.5 mg NEB ONETIME [facility] Stop: 03/07/20 09:35 Last Admin: 03/07/20 09:47 Dose: 2.5 mg Documented by: Bupivacaine HCl (Sensorcaine-Mpf 0.25%) Confirm Administered Dose 30 ml .ROUTE .STK-MED ONE Stop: 03/07/20 09:31 Bupivacaine HCl (Sensorcaine-Mpf 0.25%) Confirm Administered Dose 30 ml .ROUTE .STK-MED ONE Stop: 03/07/20 10:12 Last Admin: 03/07/20 11:43 Dose: 30 ml Documented by: Cefazolin Sodium (Ancef) Confirm Administered Dose 2 gm .ROUTE .ST-MED ONE Stop: 03/07/20 09:31 Last Admin: 03/07/20 11:38 Dose: 2 gm Documented by: Cefazolin Sodium (Ancef) Confirm Administered Dose 2 gm .ROUTE .STK-MED ONE Stop: 03/07/20 10:04 Morphine Sulfate 8 mg/Epinephrine HCl 0.3 mg/Cefuroxime Sodium 750 mg/Sodium Chloride 8.9 ml 0 mg .XX ASDIRECTED PRN PRN Reason: Pain Last Admin: 03/07/20 11:42 Dose: 758.3 mg Documented by: Ephedrine Sulfate (Ephedrine 25 Mg/5 Ml Syringe) Confirm Administered Dose 25 mg IV .STK-MED ONE Stop: 03/07/20 10:56 Epinephrine HCl (Adrenalin) Confirm Administered Dose 1 mg .ROUTE .ST-MED ONE Stop: 03/07/20 09:07 Fentanyl (Sublimaze) Confirm Administered Dose 100 mcg .ROUTE .ST-MED ONE Stop: 03/07/20 10:03 Lactated Ringer's (Ringers, Lactated) 1,000 mls @ 125 mls/hr IV ASDIRECTED [facility] Stop: 03/07/20 23:00 Last Admin: 03/07/20 08:40 Dose: 125 mls/hr Documented by: Lidocaine HCl (Xylocaine-Mpf 1%) Confirm Administered Dose 4 mls @ as directed .ROUTE .STK-MED ONE Stop: 03/07/20 10:11 Lactated Ringer's (Ringers, Lactated) Confirm Administered Dose 1,000 mls @ as directed .ROUTE .STK-MED ONE Stop: 03/07/20 11:00 Iodine (Iodine 2% Mild Tincture) Confirm Administered Dose 0 ml .ROUTE .STK-MED ONE Stop: 03/07/20 09:31 Last Admin: 03/07/20 11:36 Dose: 18 ml Documented by: Iodine (Iodine 2% Mild Tincture) Confirm Administered Dose 30 ml .ROUTE .STK-MED ONE Stop: 03/07/20 10:12 Lidocaine/Sodium Bicarbonate (Buffered Lidocaine 1% In Ns 8.4%) 0.25 ml IDERM ONETIME PRN PRN Reason: Prior to IV Start Stop: 03/07/20 18:00 Last Admin: 03/07/20 08:40 Dose: 0.25 ml Documented by: Midazolam HCl (Versed 1 Mg/Ml) Confirm Administered Dose 2 mg .ROUTE .STK-MED ONE Stop: 03/07/20 10:03 Miscellaneous Medication (Phenylephrine 1 Mg/10 Ml-Ns) Confirm Administered Dose 1 mg IV .STK-MED ONE Stop: 03/07/20 11:10 Ondansetron HCl (Zofran) Confirm Administered Dose 4 mg .ROUTE .STK-MED ONE Stop: 03/07/20 10:03 Oxycodone HCl (Oxycontin) 10 mg PO ONETIME [facility] Stop: 03/07/20 18:00 Last Admin: 03/07/20 08:26 Dose: 10 mg Documented by: Pregabalin (Lyrica) 50 mg PO ONETIME [facility] Stop: 03/07/20 18:00 Last Admin: 03/07/20 08:26 Dose: 50 mg Documented by: Propofol (Diprivan 20 Ml) Confirm Administered Dose 200 mg .ROUTE .STK-MED ONE Stop: 03/07/20 10:03 Propofol (Diprivan 20 Ml) Confirm Administered Dose 200 mg .ROUTE .STK-MED ONE Stop: 03/07/20 11:11 Propofol (Diprivan 20 Ml) Confirm Administered Dose 200 mg .ROUTE .STK-MED ONE Stop: 03/07/20 11:38 Ropivacaine (Naropin 0.5%) Confirm Administered Dose 30 ml .ROUTE .STK-MED ONE Stop: 03/07/20 09:07 Sodium Chloride (Saline Flush) 10 ml FLUSH ASDIRECTED PRN PRN Reason: Keep Vein Open Stop: 03/07/20 18:00 Tranexamic Acid (Cyklokapron) Confirm Administered Dose 1,000 mg .ROUTE .STK-MED ONE Stop: 03/07/20 09:31 Tranexamic Acid (Cyklokapron) Confirm Administered Dose 1,000 mg .ROUTE .STK-MED ONE Stop: 03/07/20 10:11 Last Admin: 03/07/20 11:49 Dose: 1,000 mg Documented by: Vancomycin HCl (Vancomycin) Confirm Administered Dose 1 gm .ROUTE .STK-MED ONE Stop: 03/07/20 09:31 Vancomycin HCl (Vancomycin) Confirm Administered Dose 1 gm .ROUTE .STK-MED ONE Stop: 03/07/20 10:12 Last Admin: 03/07/20 11:45 Dose: 1 gm Documented by: - Exam Wound/Incisions: Dressing Dry and Intact General: Alert, Cooperative, No Acute Distress Lungs: Normal Respiratory Effort Extremities: Other (NVS intact for BLE. Meredith's negative.) Sepsis Event Note - Evaluation Sepsis Screening Result: No Definite Risk - Focused Exam Vital Signs: Vital Signs Temp Pulse Resp BP Pulse Ox Pulse Ox Pulse Ox 03/08/20 08:06 03/08/20 06:42 92 L 03/08/20 06:28 99.7 F 74 20 120/54 L 91 L 03/08/20 01:44 90 L 03/08/20 01:41 98.1 F 79 20 131/52 L 93 L 03/07/20 21:04 98.4 F 74 20 143/65 H 92 L Pulse Ox 03/08/20 08:06 92 L 03/08/20 06:42 03/08/20 06:28 03/08/20 01:44 03/08/20 01:41 03/07/20 21:04 - Problem List Review Problem List Initiated/Reviewed/Updated: Yes - My Orders Last 24 Hours: Active Orders 24 hr Category Date Time Status Communication Order [RC] ROUTINE Care 03/07/20 12:25 Active Cooling Warming Measures [RC] ASDIRECTED Care 03/07/20 12:24 Active Notify Provider [RC] ASDIRECTED Care 03/07/20 12:25 Active Oxygen Therapy [RC] ASDIRECTED Care 03/07/20 12:24 Active Pulse Oximetry [RC] ASDIRECTED Care 03/07/20 12:24 Active RT Aerosol Therapy [RC] ASDIRECTED Care 03/07/20 09:34 Active Ready for Discharge [RC] PER UNIT ROUTINE Care 03/08/20 08:13 Ordered Regular Diet [DIET] Diet 03/07/20 Lunch Active Albuterol Med 03/07/20 14:52 Pending 1 - 2 puff INH Q4H PRN Cholecalciferol (Vitamin D3) [Vitamin D3] Med 03/07/20 21:00 Active 5,000 unit PO BEDTIME DULoxetine [Cymbalta] Med 03/08/20 09:00 Active 30 mg PO DAILY DULoxetine [Cymbalta] Med 03/08/20 09:00 Active 60 mg PO DAILY Docusate Sodium [Colace] Med 03/07/20 21:00 Active 100 mg PO BID Fluticasone/Salmeterol Med 03/08/20 09:00 Pending 1 puff INH DAILY Gabapentin [Neurontin] Med 03/07/20 21:00 Active 200 mg PO BID LORazepam [Ativan] Med 03/07/20 14:52 Active 1 - 2 mg PO BID PRN Levothyroxine Med 03/08/20 06:00 Active 125 mcg PO ACBREAKFAST Metoprolol Succinate [Toprol XL] Med 03/07/20 17:00 Active 50 mg PO DAILY@1700 Nicotine [Habitrol] Med 03/07/20 16:00 Active 21 mg TRDERM DAILY Pantoprazole [ProTONIX] Med 03/07/20 21:00 Active 40 mg PO BEDTIME Potassium Chloride [Klor-Con 10] Med 03/07/20 21:00 Active 10 meq PO BEDTIME Remove Patch Med 03/08/20 09:00 Active 0 ea TRDERM DAILY Rivaroxaban [Xarelto] Med 03/08/20 09:00 Active 10 mg PO DAILY Simvastatin [Zocor] Med 03/07/20 21:00 Active 20 mg PO BEDTIME ceFAZolin [Ancef] 2 gm Med 03/07/20 18:00 Active Premix Bag 1 bag IV Q8H risperiDONE [RisperiDAL] Med 03/07/20 21:00 Active 2 mg PO BEDTIME Medication Orders Bisacodyl (Dulcolax) 5 mg PO DAILY PRN PRN Reason: Constipation Cholecalciferol (Vitamin D3) 5,000 unit PO BEDTIME [facility] Last Admin: 03/07/20 20:51 Dose: 5,000 unit Documented by: ALIDA Cyclobenzaprine HCl (Flexeril) 5 mg PO TID PRN PRN Reason: Spasms Last Admin: 03/08/20 01:00 Dose: 5 mg Documented by: Admin: 03/07/20 17:08 Dose: 5 mg Documented by: JORDY Docusate Sodium (Colace) 100 mg PO BID [facility] Last Admin: 03/07/20 20:49 Dose: 100 mg Documented by: ALIDA Duloxetine HCl (Cymbalta) 30 mg PO DAILY [facility] Duloxetine HCl (Cymbalta) 60 mg PO DAILY [facility] Famotidine (Pepcid) 20 mg PO Q12H [facility] Last Admin: 03/08/20 06:30 Dose: 20 mg Documented by: Admin: 03/07/20 17:50 Dose: 20 mg Documented by: Admin: 03/07/20 14:03 Dose: Not Given Documented by: JORDY Gabapentin (Neurontin) 200 mg PO BID [facility] Last Admin: 03/07/20 20:54 Dose: Not Given Documented by: ALIDA Cefazolin Sodium/Dextrose 2 gm (/ Premix) 50 mls @ 100 mls/hr IV Q8H [facility] Stop: 03/08/20 10:29 Last Admin: 03/08/20 01:07 Dose: 100 mls/hr Documented by: Infusion: 03/07/20 17:38 Dose: 100 mls/hr Documented by: Admin: 03/07/20 17:08 Dose: 100 mls/hr Documented by: JORDY Levothyroxine Sodium (Levothyroxine) 125 mcg PO ACBREAKFAST [facility] Last Admin: 03/08/20 06:30 Dose: 125 mcg Documented by: ALIDA Lorazepam (Ativan) 1 - 2 mg PO BID PRN PRN Reason: Anxiety Magnesium Hydroxide (Milk Of Magnesia) 30 ml PO BID PRN PRN Reason: Constipation Metoprolol Succinate (Toprol Xl) 50 mg PO DAILY@1700 [facility] Last Admin: 03/07/20 16:06 Dose: 50 mg Documented by: JORDY Miscellaneous Information (Remove Patch) 0 ea TRDERM DAILY [facility] Morphine Sulfate (Morphine) 2 mg IVPUSH Q2H PRN PRN Reason: Breakthrough Pain Naloxone HCl (Narcan) 0.1 mg IVPUSH Q5M PRN PRN Reason: Oversedation Nicotine (Habitrol) 21 mg TRDERM DAILY [facility] Last Admin: 03/07/20 16:04 Dose: 21 mg Documented by: JORDY Non-Formulary Medication (Albuterol) 1 - 2 puff INH Q4H PRN PRN Reason: Shortness of Breath Non-Formulary Medication (Fluticasone/Salmeterol) 1 puff INH DAILY [facility] Ondansetron HCl (Zofran) 4 mg IVPUSH Q6H PRN PRN Reason: Nausea/Vomiting Oxycodone/Acetaminophen (Percocet 325-5 Mg) 1 - 2 tab PO Q4H PRN PRN Reason: Pain Last Admin: 03/08/20 06:40 Dose: 2 tab Documented by: Admin: 03/07/20 20:53 Dose: 2 tab Documented by: Admin: 03/07/20 14:51 Dose: 2 tab Documented by: JORDY Pantoprazole Sodium (Protonix) 40 mg PO BEDTIME [facility] Last Admin: 03/07/20 21:03 Dose: 40 mg Documented by: ALIDA Potassium Chloride (Klor-Con 10) 10 meq PO BEDTIME [facility] Last Admin: 03/07/20 20:51 Dose: 10 meq Documented by: ALIDA Risperidone (Risperidal) 2 mg PO BEDTIME [facility] Last Admin: 03/07/20 20:52 Dose: 2 mg Documented by: ALIDA Rivaroxaban (Xarelto) 10 mg PO DAILY [facility] Senna (Senna) 8.6 mg PO BID PRN PRN Reason: Constipation Simvastatin (Zocor) 20 mg PO BEDTIME [facility] Last Admin: 03/07/20 20:51 Dose: 20 mg Documented by: ALIDA - Assessment Assessment (Free Text/Narrative):: POD#1 - s/p left TKA - Plan Plan (Free Text/Narrative):: 1. Xarelto 10mg PO daily (smoker, hx GI bleed, hx asthma), frequent mobility, TEDs. 2. Hgb 12.5. 3. Discharge to home today if inpt therapy goals met. 4. Outpatient therapy. 5. Nicotine patch prescribed and smoking cessation discussed. The pt's case was discussed with Dr. Mcdonald.
--- NOTE | 2020-03-08 08:19 | PCM48HPAN ---
Post Anesthesia Note - EVALUATION WITHIN 48HRS OF ANESTHETIC Vital Signs in Normal Range: Yes Patient Participated in Evaluation: Yes Respiratory Function Stable: Yes Airway Patent: Yes Cardiovascular Function Stable: Yes Hydration Status Stable: Yes Pain Control Satisfactory: Yes Nausea and Vomiting Control Satisfactory: Yes Mental Status Recovered: Yes Vital Signs: Last Vital Signs Temp 37.6 C 03/08/20 06:28 Pulse 74 03/08/20 06:28 Resp 20 03/08/20 06:28 BP 120/54 L 03/08/20 06:28 Pulse Ox 92 L 03/08/20 08:06 - COMMENTS/OBSERVATIONS Free Text/Narrative:: no anesthesia complications noted
[2020-03-08] MEDS ORDERED: Rivaroxaban 10 MG Tab PO SCH (09:00)
[2020-03-08] MEDS ORDERED: DULoxetine 30 MG Cap PO SCH ×2 (09:00)
[2020-03-08] MEDS ORDERED: Non-Formulary Medication 1 Each (Fluticasone/Salmeterol 1 PUFF) INH SCH (09:00)
[2020-03-08] MEDS: Gabapentin 100 MG Cap PO SCH (09:18)
[2020-03-08] MEDS: Docusate Sodium 100 MG Cap PO SCH (09:19)
[2020-03-08] MEDS: Nicotine 21 MG/24 Hr Patch TRDERM SCH (09:20)
[2020-03-08 12:38] VITALS: BP 153/60; PULSE 68
--- NOTE | 2020-03-11 09:56 | PCM.OPNOTE ---
- General Post-Op/Procedure Note Date of Surgery/Procedure: 03/07/20 Operative Procedure(s): left total knee arthroplasty Pre Op Diagnosis: left knee osteoarthrosis Post-Op Diagnosis: Same Anesthesia Technique: Local, MAC, Spinal Primary Surgeon: Brian Mcdonald Anesthesia Provider: Arnie Lundberg Creative Art Therapist: Halley Cabello Creative Art Therapist: Gloria العلي in mLs: 5 Complications: None Condition: Good Free Text/Narrative:: / 9mm 29x9
--- NOTE | 2020-03-11 10:24 | OR ---
DATE OF OPERATION: 03/07/2020 SURGEON: Brian Mcdonald MD OPERATION PERFORMED: Left total knee arthroplasty. PREOPERATIVE DIAGNOSIS: Left knee osteoarthrosis. POSTOPERATIVE DIAGNOSIS: Left knee osteoarthrosis. ANESTHESIA: Local MAC with spinal. ANESTHESIA PROVIDER: Arnie Lundberg CRNA. ASSISTANTS: Halley Cabello PA-C and Gloria العلي LPN. ESTIMATED BLOOD LOSS: 5 mL. COMPLICATIONS: None. CONDITION: Stable. IMPLANTS: 1. Barney size 4 cemented PS femur. 2. Barney size 4 cemented [place] tibial baseplate. 3. [place] size 4, 9 mm PS X3 polyethylene. 4. Barney size 29 x 9 mm cemented asymmetric patella. DESCRIPTION OF PROCEDURE: The patient was identified in the preop holding area. Proper site was marked and identified by the surgeon. The patient was taken back to the operating theater. After adequate anesthesia, the patient's left lower extremity had a nonsterile tourniquet applied and it was sterilely prepped and draped in the usual sterile fashion. OR time-out was performed. The patient received 2 g IV Ancef. At this time, the left lower extremity was exsanguinated. Tourniquet was insufflated to 300 mmHg. Standard medial parapatellar incision was made. Medial parapatellar arthrotomy was created. Deep fibers of the MCL were raised and anterior fat pad was resected. At this time, attention was turned to the patella. Patella measured 22, it was resected to a 13 for 29 x 9 mm patella. Drill holes were then drilled and found to be in adequate position. The drill was then drilled in the distal femur and the intramedullary distal femoral cutting guide was then placed. 8 mm was resected off the distal femur and was found to be an adequate resection. Sizing guide was placed. It was found to be a size 4 cemented PS femur that was shown on the implant record at the beginning of this dictation. The drill holes were drilled for the epicondylar axis using [place] line and epicondyles as reference. At this time, the 4-in-1 cutting block was placed. An anterior posterior and anterior and posterior chamfer cuts were then completed. Box cute was completed at this time. Attention was turned to the tibia. The posterior medial lateral retractors were placed. The intramedullary tibial guide was placed. It was placed in the old footprint of the ACL. It was aligned with the center of the ankle and 0 degrees of slope, 9 mm was then resected off the unaffected side. There was found to be an acceptable reduction. At this time, posterior osteophytes were removed along with medial and lateral meniscus. A trial implant was placed with a correct sized tibia that was mentioned at the beginning of the dictation. A [place] size 4, 9 mm PS X3 polyethylene insert was then placed. The patient's knee was brought through range of motion. The patella was tracking centrally and was stable to varus and valgus stress. Alignment was found to be roughly at 0 degrees. The tibia was stamped and drilled in proper rotation. The universal tibial base plate was impacted in place. Next, the Barney size 4 cemented PS femur impacted into place and the Barney size 4, 9 mm PS X3 polyethylene insert was placed. The patient's knee was brought into full extension. The patella was then cemented in place at this time. One liter dilute Betadine solution was irrigated through the knee along with 3 L of pulse lavage irrigation with Ancef. Periarticular injection was then completed. The patient's knee was brought through a range of motion. Once the cement had time to set up and it was found to be stable to varus valgus stress, the patella was tracking centrally with full range of motion. At this time, a #2 barbed suture was used for closure of the medial parapatellar arthrotomy. Topical tranexamic acid was placed. 2-0 Vicryl was used subcutaneously, Prineo was used for the skin. The patient tolerated the procedure well and was sent to the PACU in stable condition. VISHNU /[id number] NALINI
== END 2020-03-08 11:55 | disposition home or self-care (01) ==
LOC: JD.MS 08:16 → JD.SDS 08:16
PROVIDERS: ATTEND Orthopaedic Surgery
DX: M17.12 Unilateral primary osteoarthritis, left knee (principal); E78.2 Mixed hyperlipidemia; E03.9 Hypothyroidism, unspecified; J45.30 Mild persistent asthma, uncomplicated; F17.210 Nicotine dependence, cigarettes, uncomplicated; Z01.812 Encounter for preprocedural laboratory examination; Z96.642 Presence of left artificial hip joint; Z96.651 Presence of right artificial knee joint; Z79.899 Other long term (current) drug therapy; Z88.8 Allergy status to other drugs, medicaments and biological substances; Z20.828 Contact with and (suspected) exposure to other viral communicable diseases
CPT/HCPCS: 27447; 36415; 73560; 80053; 85027; 87641; 94640; 94760; 97110; 97116; 97161; 97165; 97535; A9270; C1713; C1776; J0171; J0690; J0697; J2001; J2250; J2270; J2370; J2405; J2704; J2795; J3010; J3370; J3490; J7120; 01402; 64450; U0002

== ENCOUNTER 2020-03-26 18:04 | Emergency (ER) | payer MEDICARE, MEDICAID ==
[2020-03-26 18:30] VITALS: BP 154/77; PULSE 81
[2020-03-26] MEDS ORDERED: Sodium Chloride 0.9% 10 ML Syringe FLUSH PRN (18:31)
[2020-03-26] MEDS ORDERED: Sodium Chloride 0.9% 1,000 ML IV SCH (18:45)
--- NOTE | 2020-03-26 18:57 | EDM.PDOC ---
ED HPI GENERAL MEDICAL PROBLEM - General Chief Complaint: Gastrointestinal Problem Stated Complaint: WEAK,FEVER,CHILLS AND DIARRHEA Time Seen by Provider: 03/26/20 18:28 Source of Information: Reports: Patient History Limitations: Reports: No Limitations - History of Present Illness INITIAL COMMENTS - FREE TEXT/NARRATIVE: Patient is a 59-year-old female presenting to the emergency department with complaints of fever, chills, diarrhea, and weakness for the last few days. She reports a T-max at home at home of 99.1. Temperature in triage was 97.4. She states that she has had about 2 episodes of loose stools a day for the last 3 days. States that she generally feels weak. She did recently have a knee replacement surgery done and has been attending PT here in the hospital. Otherwise she does not leave the house. Her does go to [employer] and do shopping for them. She denies any respiratory complaints such as cough or shortness of breath. She has had no abdominal pain, nausea, or vomiting. She has had no known sick contacts. She is concerned that she could have COVID- 19. Left Knee Pain Score (Numeric/FACES): 6 - Related Data Allergies Allergy/AdvReac Type Severity Reaction Status Date / Time aripiprazole [From Abilify] Allergy Cannot Verified 03/26/20 18:30 Remember bupropion [From Wellbutrin] Allergy Cannot Verified 03/26/20 18:30 Remember dextrose Allergy Rash Verified 03/26/20 18:30 ibuprofen Allergy Cannot Verified 03/26/20 18:30 Remember levofloxacin [From Levaquin] Allergy Rash Verified 03/26/20 18:30 naproxen [From Aleve] Allergy Cannot Verified 03/26/20 18:30 Remember fluconazole [From Diflucan] AdvReac dystonia Verified 03/26/20 18:30 Home Meds: Home Meds Aspirin [Halfprin] 81 mg PO DAILY 11/05/13 [History] Simvastatin [Zocor] 20 mg PO DAILY 07/19/15 [History] Albuterol [Ventolin HFA] 1 - 2 puff INH Q4H PRN 01/24/18 [History] Fluticasone Propion/Salmeterol [Advair 250-50 Diskus] 1 puff INH DAILY 01/24/18 [History] LORazepam [Ativan] 1 - 2 mg PO BID PRN 01/27/18 [History] Levothyroxine 125 mcg PO ACBREAKFAST 01/28/18 [History] Cholecalciferol (Vitamin D3) [Vitamin D3] 5,000 unit PO DAILY 05/02/18 [History] risperiDONE [Risperdal] 2 mg PO DAILY 08/07/19 [History] DULoxetine [Cymbalta] 30 mg PO DAILY 03/06/20 [History] DULoxetine [Cymbalta] 60 mg PO DAILY 03/06/20 [History] Docusate Sodium [Colace] 100 mg PO DAILY PRN 03/06/20 [History] Gabapentin [Neurontin] 200 mg PO BID 03/06/20 [History] Metoprolol Succinate 50 mg PO DAILY 03/06/20 [History] Omeprazole 40 mg PO QAM 03/06/20 [History] Potassium Chloride 10 meq PO DAILY 03/06/20 [History] Temazepam 15 mg PO BEDTIME 03/06/20 [History] Acetaminophen/oxyCODONE [Percocet 325-5 MG] 1 - 2 tab PO Q4H PRN #60 tablet 03/08/20 [Rx] Docusate Sodium [Colace] 100 mg PO BID cap 03/08/20 [Rx] Magnesium Hydroxide [Milk of Magnesia] 30 ml PO BID PRN cup 03/08/20 [Rx] Nicotine [Habitrol] 21 mg TRDERM DAILY #1 patch 03/08/20 [Rx] Remove Patch 0 ea TRDERM DAILY each 03/08/20 [Rx] Rivaroxaban [Xarelto] 10 mg PO DAILY #30 tablet 03/08/20 [Rx] Sennosides [Senna] 8.6 mg PO BID PRN tablet 03/08/20 [Rx] bisacodyL [Dulcolax] 5 mg PO DAILY PRN tablet 03/08/20 [Rx] Past Medical History HEENT History: Reports: Hard of Hearing, Sinusitis, Other (See Below) Other HEENT History: hearing loss, tonsillitis, pharyngitis, vasomotor rhinitis, deviated septum, wears glasses, has hearing aids Cardiovascular History: Reports: High Cholesterol, Other (See Below) Other Cardiovascular History: palpitations Respiratory History: Reports: Asthma, Bronchitis, Recurrent, Sleep Apnea, SOB, Other (See Below) Other Respiratory History: URI, pleural effusions, uses CPAP Gastrointestinal History: Reports: GERD, GI Bleed, Other (See Below) Other Gastrointestinal History: small bowel obstruction Genitourinary History: Reports: Urinary Incontinence, UTI, Recurrent, Other (See Below) Other Genitourinary History: hematuria, UTI, cystitis 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 [employer]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: right breast biopsy, elective , atrophic vaginitis, genital herpes Musculoskeletal History: Reports: Back Pain, Chronic, Osteoarthritis Other Musculoskeletal History: contusion, costochondritis, back pain, knee enthesopathy, joint pain, hammertoe, left knee torn meniscus, degenerative joint disease Neurological History: Reports: Headaches, Chronic Psychiatric History: Reports: Addiction, Anxiety, Depression, Schizophrenia Endocrine/Metabolic History: Reports: Hypothyroidism Hematologic History: Reports: Other (See Below) Other Hematologic History: abnormal coagulation studies Immunologic History: Reports: None Oncologic (Cancer) History: Reports: None Dermatologic History: Reports: Other (See Below) Other Dermatologic History: animal bite, foot ulcer - Infectious Disease History Infectious Disease History: Reports: Rubella - Past Surgical History Head Surgeries/Procedures: Reports: None HEENT Surgical History: Reports: Cataract Surgery, Naso-Sinus Surgery Other HEENT Surgeries/Procedures: deviated septum with surgery Cardiovascular Surgical History: Reports: None Respiratory Surgical History: Reports: None GI Surgical History: Reports: Colonoscopy Female Surgical History: Reports: Breast Biopsy, Hysterectomy, Tubal Ligation Other Female Surgeries/Procedures: right ovary Endocrine Surgical History: Reports: None Neurological Surgical History: Reports: C-Spine Other Neurological Surgeries/Procedures: [id number] fusion with hardware Musculoskeletal Surgical History: Reports: Arthroscopic Knee, Hip Replacement, Knee Replacement Other Musculoskeletal Surgeries/Procedures:: left hip replacement, left knee surgery, right total knee replacement Oncologic Surgical History: Reports: None Dermatological Surgical History: Reports: None Social & Family History - Family History Cardiac: Reports: Heart Failure Neurological: Reports: CVA Endocrine/Metabolic: Reports: Diabetes, type II - Tobacco Use Smoking Status *Q: Current Every Day Smoker Years of Tobacco use: 35 Packs/Tins Daily: 1 - Caffeine Use Caffeine Use: Reports: None - Recreational Drug Use Recreational Drug Use: No - Living Situation & Occupation Living situation: Reports: with Spouse ED ROS GENERAL - Review of Systems Review Of Systems: See Below Constitutional: Reports: Fever, Chills, Weakness, Fatigue. Denies: Decreased Appetite, Weight Loss HEENT: Reports: No Symptoms Respiratory: Reports: No Symptoms Cardiovascular: Reports: No Symptoms Endocrine: Reports: No Symptoms GI/Abdominal: Reports: Diarrhea. Denies: Abdominal Pain, Nausea, Vomiting : Reports: No Symptoms Musculoskeletal: Reports: Other (generalized weakness) Skin: Reports: No Symptoms Neurological: Reports: No Symptoms Psychiatric: Reports: No Symptoms Hematologic/Lymphatic: Reports: No Symptoms Immunologic: Reports: No Symptoms ED EXAM, GI/ABD - Physical Exam Exam: See Below General Appearance: Alert, WD/WN, No Apparent Distress Respiratory/Chest: No Respiratory Distress, Lungs Clear, Normal Breath Sounds, No Accessory Muscle Use, Chest Non-Tender Cardiovascular: Normal Peripheral Pulses, Regular Rate, Rhythm, No Edema, No Gallop, No JVD, No Murmur, No Rub GI/Abdominal Exam: Normal Bowel Sounds, Soft, Non-Tender, No Organomegaly, No Distention, No Abnormal Bruit, No Mass, Pelvis Stable Neurological: Alert, Oriented, CN II-XII Intact, Normal Cognition, Normal Gait, Normal Reflexes, No Motor/Sensory Deficits Psychiatric: Normal Affect, Normal Mood Skin Exam: Warm, Dry, Intact, Normal Color, No Rash Course - Vital Signs Last Recorded V/S: Last Vital Signs Temp 97.4 F 03/26/20 18:26 Pulse 81 03/26/20 18:26 Resp 16 03/26/20 18:26 BP 154/77 H 03/26/20 18:26 Pulse Ox 97 03/26/20 18:26 - Orders/Labs/Meds Orders: Active Orders 24 hr Category Date Time Status CORONAVIRUS COVID-19 PCR PHL Routine Lab 03/26/20 20:05 Received Peripheral IV Insertion Adult [OM.PC] Stat Oth 03/26/20 18:31 Ordered Labs: Laboratory Tests 03/26/20 03/26/20 03/26/20 Range/Units 18:47 18:47 18:47 WBC 6.38 (3.98-10.04) K/mm3 RBC 4.72 (3.98-5.22) M/mm3 Hgb 12.9 (11.2-15.7) gm/dl Hct 39.3 (34.1-44.9) % MCV 83.3 (79.4-94.8) fl MCH 27.3 (25.6-32.2) pg MCHC 32.8 (32.2-35.5) g/dl RDW Std Deviation 43.9 (36.4-46.3) fL Plt Count 359 D (182-369) K/mm3 MPV 9.3 L (9.4-12.3) fl Neut % (Auto) 66.9 (34.0-71.1) % Lymph % (Auto) 21.9 (19.3-51.7) % [place] % (Auto) 7.8 (4.7-12.5) % Eos % (Auto) 3.0 (0.7-5.8) Baso % (Auto) 0.2 (0.1-1.2) % Neut # (Auto) 4.27 (1.56-6.13) K/mm3 Lymph # (Auto) 1.40 (1.18-3.74) K/mm3 [place] # (Auto) 0.50 H (0.24-0.36) K/mm3 Eos # (Auto) 0.19 (0.04-0.36) K/mm3 Baso # (Auto) 0.01 (0.01-0.08) K/mm3 Sodium 140 (136-145) mEq/L Potassium 3.3 L (3.5-5.1) mEq/L Chloride 103 (98-107) mEq/L Carbon Dioxide 25 (21-32) mEq/L Anion Gap 15.3 H (5-15) BUN 5 L (7-18) mg/dL Creatinine 0.8 (0.55-1.02) mg/dL Est Cr Clr Drug Dosing 61.86 mL/min Estimated GFR (MDRD) > 60 (>60) mL/min BUN/Creatinine Ratio 6.3 L (14-18) Glucose 116 H (74-106) mg/dL Calcium 8.8 (8.5-10.1) mg/dL Magnesium 1.8 (1.8-2.4) mg/dl Total Bilirubin 0.3 (0.2-1.0) mg/dL AST 16 (15-37) U/L ALT 18 (14-59) U/L Alkaline Phosphatase 128 H (46-116) U/L C-Reactive Protein 3.0 H* (<1.0) mg/dL Total Protein 6.9 (6.4-8.2) g/dl Albumin 3.3 L (3.4-5.0) g/dl Globulin 3.6 gm/dL Albumin/Globulin Ratio 0.9 L (1-2) Urine Color (Yellow) Urine Appearance (Clear) Urine pH (5.0-8.0) Ur Specific [place] (1.005-1.030) Urine Protein (Negative) Urine Glucose (UA) (Negative) Urine Ketones (Negative) Urine Occult Blood (Negative) Urine Nitrite (Negative) Urine Bilirubin (Negative) Urine Urobilinogen (0.2-1.0) Ur Leukocyte Esterase (Negative) Urine RBC (0-5) /hpf Urine WBC (0-5) /hpf Ur Squamous Epith Cells (0-5) /hpf Urine Bacteria (FEW) /hpf Urine Mucus (FEW) /hpf 03/26/20 Range/Units 19:05 WBC (3.98-10.04) K/mm3 RBC (3.98-5.22) M/mm3 Hgb (11.2-15.7) gm/dl Hct (34.1-44.9) % MCV (79.4-94.8) fl MCH (25.6-32.2) pg MCHC (32.2-35.5) g/dl RDW Std Deviation (36.4-46.3) fL Plt Count (182-369) K/mm3 MPV (9.4-12.3) fl Neut % (Auto) (34.0-71.1) % Lymph % (Auto) (19.3-51.7) % [place] % (Auto) (4.7-12.5) % Eos % (Auto) (0.7-5.8) Baso % (Auto) (0.1-1.2) % Neut # (Auto) (1.56-6.13) K/mm3 Lymph # (Auto) (1.18-3.74) K/mm3 [place] # (Auto) (0.24-0.36) K/mm3 Eos # (Auto) (0.04-0.36) K/mm3 Baso # (Auto) (0.01-0.08) K/mm3 Sodium (136-145) mEq/L Potassium (3.5-5.1) mEq/L Chloride (98-107) mEq/L Carbon Dioxide (21-32) mEq/L Anion Gap (5-15) BUN (7-18) mg/dL Creatinine (0.55-1.02) mg/dL Est Cr Clr Drug Dosing mL/min Estimated GFR (MDRD) (>60) mL/min BUN/Creatinine Ratio (14-18) Glucose (74-106) mg/dL Calcium (8.5-10.1) mg/dL Magnesium (1.8-2.4) mg/dl Total Bilirubin (0.2-1.0) mg/dL AST (15-37) U/L ALT (14-59) U/L Alkaline Phosphatase (46-116) U/L C-Reactive Protein (<1.0) mg/dL Total Protein (6.4-8.2) g/dl Albumin (3.4-5.0) g/dl Globulin gm/dL Albumin/Globulin Ratio (1-2) Urine Color Light yellow (Yellow) Urine Appearance Clear (Clear) Urine pH 7.0 (5.0-8.0) Ur Specific [place] 1.010 (1.005-1.030) Urine Protein Negative (Negative) Urine Glucose (UA) Negative (Negative) Urine Ketones Negative (Negative) Urine Occult Blood Trace-intact H (Negative) Urine Nitrite Negative (Negative) Urine Bilirubin Negative (Negative) Urine Urobilinogen 0.2 (0.2-1.0) Ur Leukocyte Esterase Negative (Negative) Urine RBC Not seen (0-5) /hpf Urine WBC 0-5 (0-5) /hpf Ur Squamous Epith Cells 0-5 (0-5) /hpf Urine Bacteria Rare (FEW) /hpf Urine Mucus Not seen (FEW) /hpf Meds: Medications Discontinued Medications Generic Name Dose Route Start Last Admin Trade Name Freq PRN Reason Stop Dose Admin Sodium Chloride 1,000 mls @ 999 mls/hr 03/26/20 18:45 03/26/20 19:57 Normal Saline IV 999 mls/hr ASDIRECTED ELVA Administration Potassium Chloride 40 meq 03/26/20 19:24 03/26/20 19:58 Klor-Con M20 PO 03/26/20 19:25 40 meq ONETIME ONE Administration Sodium Chloride 10 ml 03/26/20 18:31 Saline Flush FLUSH ASDIRECTED PRN Keep Vein Open - Re-Assessments/Exams Free Text/Narrative Re-Assessment/Exam: 03/26/20 19:35 Hematology was grossly unremarkable with exception of her potassium being s lightly low at 3.3. We will give her 40 mEq of p.o. KCl prior to discharge. Urinalysis was negative for infection. We will complete a coronavirus virus test prior to discharge. Patient will be notified of results when available. Discharge instructions as documented. Departure - Departure Time of Disposition: 19:36 Disposition: Home, Self-Care 01 Condition: Good Clinical Impression: Diarrhea Qualifiers: Diarrhea type: unspecified type Qualified Code(s): R19.7 - Diarrhea, unspecified - Discharge Information *PRESCRIPTION DRUG MONITORING PROGRAM REVIEWED*: No *COPY OF PRESCRIPTION DRUG MONITORING REPORT IN PATIENT CARLOS: No Instructions: Diarrhea, Adult, [id number] Referrals: Beena Guillen [employer]LL[employer] PERSON [Primary Care Provider] - Forms: ED Department Discharge Additional Instructions: You were seen in the emergency department today for reported fever at home, weakness, and diarrhea. Blood work was completed as well as urinalysis and found to be normal with the exception of your potassium being slightly low at 3.3. He did receive a potassium supplement in the emergency department. Recommend that you maintain adequate hydration. A coronavirus test has been completed and you will be notified with these results when they are available which is normally 24 to 72 hours. You may use [id number] Tylenol and ibuprofen as needed for fever or discomfort. Follow-up with your primary care provider as needed or return to ER for worsening symptoms. Sepsis Event Note (ED) - Evaluation Sepsis Screening Result: No Definite Risk - My Orders Last 24 Hours: My Active Orders 03/26/20 18:31 Peripheral IV Insertion Adult [OM.PC] Stat 03/26/20 20:05 CORONAVIRUS COVID-19 PCR PHL Routine - Assessment/Plan Last 24 Hours: My Active Orders 03/26/20 18:31 Peripheral IV Insertion Adult [OM.PC] Stat 03/26/20 20:05 CORONAVIRUS COVID-19 PCR PHL Routine
[2020-03-26] MEDS ORDERED: Potassium Chloride 20 MEQ Tab.ER PO ONE (19:24)
== END 2020-03-26 20:10 | disposition home or self-care (01) ==
LOC: JD.ED 18:04
DX: R19.7 Diarrhea, unspecified (principal); E78.00 Pure hypercholesterolemia, unspecified; J45.909 Unspecified asthma, uncomplicated; K21.9 Gastro-esophageal reflux disease without esophagitis; M19.90 Unspecified osteoarthritis, unspecified site; F41.9 Anxiety disorder, unspecified; F32.9 Major depressive disorder, single episode, unspecified; E03.9 Hypothyroidism, unspecified; F17.210 Nicotine dependence, cigarettes, uncomplicated; Z88.8 Allergy status to other drugs, medicaments and biological substances; Z88.6 Allergy status to analgesic agent; Z79.82 Long term (current) use of aspirin; Z79.899 Other long term (current) drug therapy; Z79.01 Long term (current) use of anticoagulants; Z20.828 Contact with and (suspected) exposure to other viral communicable diseases
CPT/HCPCS: 36415; 80053; 81001; 83735; 85025; 86140; 96360; 99284; A9270; J7030; U0002; 99283

== ENCOUNTER 2020-07-22 17:39 | Emergency (ER) | payer MEDICARE, MEDICAID ==
[2020-07-22 17:49] VITALS: BP 176/67; PULSE 66
[2020-07-22] MEDS ORDERED: LORazepam 0.5 MG Tab PO ONE (18:11)
--- NOTE | 2020-07-22 18:16 | EDM.PDOCBH ---
ED HPI GENERAL MEDICAL PROBLEM - General Chief Complaint: Behavioral/Psych Stated Complaint: ANXIETY Time Seen by Provider: 07/22/20 17:46 Source of Information: Reports: Patient, RN Notes Reviewed History Limitations: Reports: No Limitations - History of Present Illness INITIAL COMMENTS - FREE TEXT/NARRATIVE: Patient is a 59-year-old female who presents to the ED for her ongoing anxiety. Patient does have a history of schizophrenia, and major depressive disorder. She notes that she was hospitalized for the depressive disorder in 2016 in [place]. She has been working with a psychiatrist Dr. Hickey ever since then. Patient has been on multiple psychiatric medications, she notes amitriptyline, Zoloft, mirtazapine, Cymbalta, she is most recently on 80 mg Latuda, 40 mg of Viibryd, which was started 2 weeks ago along with 30 mg temazepam to sleep, and lorazepam 1 mg as needed. Patient notes she was trialed also on Risperdal and Trintellix. She does note that the Trintellix seem to help keep her depression at bay but she had some side effects with Risperdal where she was having gait abnormalities and blurred vision so this was stopped. Patient notes that she has just not been feeling herself for the last week or 2. She states she just cannot function at home, she notes that her is doing most of the chores and housework. She states that she just wants to sleep and not wake up due to the frustration of her anxiety. She feels drained and just has no energy. She is scheduled to see Dr. Hickey on July 29, and also she is to see her psycholo gist Giovana Dugan on July 28. Patient notes this is through [facility] [place]. She has worked with [facility] in the past, and states that she would not be interested in going there for crisis bed management. She denies any suicidal ideations or any homicidal ideations, she is not hearing things that are not there, she is not seeing things that are not there. She denies any fevers or chills, cough or shortness of breath, nausea/vomiting/diarrhea. - Related Data Allergies Allergy/AdvReac Type Severity Reaction Status Date / Time aripiprazole [From Abilify] Allergy Cannot Verified 03/26/20 18:30 Remember bupropion [From Wellbutrin] Allergy Cannot Verified 03/26/20 18:30 Remember dextrose Allergy Rash Verified 03/26/20 18:30 ibuprofen Allergy Cannot Verified 03/26/20 18:30 Remember levofloxacin [From Levaquin] Allergy Rash Verified 03/26/20 18:30 naproxen [From Aleve] Allergy Cannot Verified 03/26/20 18:30 Remember fluconazole [From Diflucan] AdvReac dystonia Verified 03/26/20 18:30 Home Meds: Home Meds Aspirin [Halfprin] 81 mg PO DAILY 11/05/13 [History] Simvastatin [Zocor] 20 mg PO DAILY 07/19/15 [History] Albuterol [Ventolin HFA] 1 - 2 puff INH Q4H PRN 01/24/18 [History] Fluticasone Propion/Salmeterol [Advair 250-50 Diskus] 1 puff INH DAILY 01/24/18 [History] LORazepam [Ativan] 1 - 2 mg PO BID PRN 01/27/18 [History] Levothyroxine 125 mcg PO ACBREAKFAST 01/28/18 [History] Cholecalciferol (Vitamin D3) [Vitamin D3] 5,000 unit PO DAILY 05/02/18 [History] risperiDONE [Risperdal] 2 mg PO DAILY 08/07/19 [History] DULoxetine [Cymbalta] 30 mg PO DAILY 03/06/20 [History] DULoxetine [Cymbalta] 60 mg PO DAILY 03/06/20 [History] Docusate Sodium [Colace] 100 mg PO DAILY PRN 03/06/20 [History] Gabapentin [Neurontin] 200 mg PO BID 03/06/20 [History] Metoprolol Succinate 50 mg PO DAILY 03/06/20 [History] Omeprazole 40 mg PO QAM 03/06/20 [History] Potassium Chloride 10 meq PO DAILY 03/06/20 [History] Temazepam 15 mg PO BEDTIME 03/06/20 [History] Acetaminophen/oxyCODONE [Percocet 325-5 MG] 1 - 2 tab PO Q4H PRN #60 tablet 03/08/20 [Rx] Docusate Sodium [Colace] 100 mg PO BID cap 03/08/20 [Rx] Magnesium Hydroxide [Milk of Magnesia] 30 ml PO BID PRN cup 03/08/20 [Rx] Nicotine [Habitrol] 21 mg TRDERM DAILY #1 patch 03/08/20 [Rx] Remove Patch 0 ea TRDERM DAILY each 03/08/20 [Rx] Rivaroxaban [Xarelto] 10 mg PO DAILY #30 tablet 03/08/20 [Rx] Sennosides [Senna] 8.6 mg PO BID PRN tablet 03/08/20 [Rx] bisacodyL [Dulcolax] 5 mg PO DAILY PRN tablet 03/08/20 [Rx] LORazepam [Ativan] 2 mg PO TID #21 tablet 07/22/20 [Rx] Past Medical History HEENT History: Reports: Hard of Hearing, Sinusitis, Other (See Below) Other HEENT History: hearing loss, tonsillitis, pharyngitis, vasomotor rhinitis, deviated septum, wears glasses, has hearing aids Cardiovascular History: Reports: High Cholesterol, Other (See Below) Other Cardiovascular History: palpitations Respiratory History: Reports: Asthma, Bronchitis, Recurrent, Sleep Apnea, SOB, Other (See Below) Other Respiratory History: URI, pleural effusions, uses CPAP Gastrointestinal History: Reports: GERD, GI Bleed, Other (See Below) Other Gastrointestinal History: small bowel obstruction Genitourinary History: Reports: Urinary Incontinence, UTI, Recurrent, Other (See Below) Other Genitourinary History: hematuria, UTI, cystitis GLUE COOK History: Reports: Therapeutic Other GLUE COOK History: right breast biopsy, elective , atrophic vaginitis, genital herpes Musculoskeletal History: Reports: Back Pain, Chronic, Osteoarthritis Other Musculoskeletal History: contusion, costochondritis, back pain, knee enthesopathy, joint pain, hammertoe, left knee torn meniscus, degenerative joint disease Neurological History: Reports: Headaches, Chronic Psychiatric History: Reports: Addiction, Anxiety, Depression, Psych Hospitalization(s) (in 2017 for depression), Schizophrenia Endocrine/Metabolic History: Reports: Hypothyroidism Hematologic History: Reports: Other (See Below) Other Hematologic History: abnormal coagulation studies Dermatologic History: Reports: Other (See Below) Other Dermatologic History: animal bite, foot ulcer - Infectious Disease History Infectious Disease History: Reports: Rubella - Past Surgical History HEENT Surgical History: Reports: Cataract Surgery, Naso-Sinus Surgery Other HEENT Surgeries/Procedures: deviated septum with surgery GI Surgical History: Reports: Colonoscopy Female Surgical History: Reports: Breast Biopsy, Hysterectomy, Tubal Ligation Other Female Surgeries/Procedures: right ovary Neurological Surgical History: Reports: C-Spine Other Neurological Surgeries/Procedures: [id number] fusion with hardware Musculoskeletal Surgical History: Reports: Arthroscopic Knee, Hip Replacement, Knee Replacement Other Musculoskeletal Surgeries/Procedures:: left hip replacement, left knee surgery, right total knee replacement Social & Family History - Family History Cardiac: Reports: Heart Failure Neurological: Reports: CVA Endocrine/Metabolic: Reports: Diabetes, type II - Caffeine Use Caffeine Use: Reports: None - Living Situation & Occupation Living situation: Reports: with Spouse ED ROS GENERAL - Review of Systems Review Of Systems: Comprehensive ROS is negative, except as noted in HPI. ED EXAM, BEHAVIORAL HEALTH - Physical Exam Exam: See Below Exam Limited By: No Limitations General Appearance: Alert, WD/WN, No Apparent Distress, Anxious (mild generalized) Respiratory/Chest: No Respiratory Distress, Lungs Clear, Normal Breath Sounds, No Accessory Muscle Use, Chest Non-Tender Cardiovascular: Normal Peripheral Pulses, Regular Rate, Rhythm, No Edema GI/Abdominal: Normal Bowel Sounds, Soft, Non-Tender, No Distention, No Mass Extremities: Normal Inspection, Normal Capillary Refill Neurological: Alert, Normal Cognition, No Motor/Sensory Deficits, Oriented x 3 Psychiatric: Alert, Oriented, Depressed Mood, Tearful. No: Homicidal Thoughts, Episcopal Delusions, Suicidal Plan, Suicidal Thoughts, Tangential Thoughts, Auditory Hallucinations, Visual Hallucinations, Grandiose Thoughts, Pressured Speech, Paranoid Thoughts, Threatening Behavior Skin Exam: Warm, Dry, Intact, Normal color, No rash COURSE, BEHAVIORAL HEALTH COMP - Course Vital Signs: Last Vital Signs Temp 97.4 F 07/22/20 17:45 Pulse 66 07/22/20 17:45 Resp 20 07/22/20 17:45 BP 176/67 H 07/22/20 17:45 Pulse Ox 97 07/22/20 17:45 Orders, Labs, Meds: Medications Discontinued Medications Generic Name Dose Route Start Last Admin Trade Name Freq PRN Reason Stop Dose Admin Lorazepam 1 mg 07/22/20 18:11 07/22/20 18:23 Ativan PO 07/22/20 18:12 1 mg ONETIME ONE Administration Discharge vs Psych Eval/Treatment:: 07/22/20 18:18 Patient presents to the ED for the evaluation of her ongoing anxiety. She is on multiple different psychiatric medications, with a history of trying multiple psychiatric medications. I have tried to contact Dr. Moore for ongoing management, to try to get her through to her appointment on Saturday. Tentative plan is to have her take her lorazepam 2 or 3 times a day over the next week, to help get her through until she can see Dr. Hickey on Jul 29. Departure - Departure Time of Disposition: 18:50 Disposition: Home, Self-Care 01 Condition: Good Clinical Impression: Anxiety - Discharge Information *PRESCRIPTION DRUG MONITORING PROGRAM REVIEWED*: Yes *COPY OF PRESCRIPTION DRUG MONITORING REPORT IN PATIENT CARLOS: No Prescriptions: LORazepam [Ativan] 2 mg PO TID #21 tablet Instructions: Managing Anxiety, Adult Referrals: Beena Guillen, [employer] [Primary Care Provider] - Forms: ED Department Discharge Additional Instructions: You were seen in the ER today for your ongoing anxiety. Dr. Moore our on-call psychiatrist was consulted on your case, he highly suggests stopping the Viibryd medication you are already taking, and holding the temazepam. Please continue Latuda medication as directed. You have been given a prescription for 2 mg tablets of lorazepam, to take 3 times daily. If 1 full tablet makes you too sleepy, you may take 1/2 tablet 3 times a day, until you can be evaluated by your psychiatrist, Dr. Hickey. The lorazepam medication was prescribed to the [facility] pharmacy located near [facility], you will need to go there tomorrow during regular business hours to filler picker and take as directed. Please follow through with your already scheduled appointments with your psychiatrist and psychologist, for further evaluation and medication adjustment. If things do not seem to be getting much better at home, please feel free to return to the ER for reevaluation. Sepsis Event Note (ED) - Evaluation Sepsis Screening Result: No Definite Risk - Focused Exam Vital Signs: Vital Signs Temp Pulse Resp BP Pulse Ox 07/22/20 17:45 97.4 F 66 20 176/67 H 97
== END 2020-07-22 19:06 | disposition home or self-care (01) ==
LOC: JD.ED 17:39
DX: F41.9 Anxiety disorder, unspecified (principal); E78.00 Pure hypercholesterolemia, unspecified; J45.909 Unspecified asthma, uncomplicated; K21.9 Gastro-esophageal reflux disease without esophagitis; M19.90 Unspecified osteoarthritis, unspecified site; F32.9 Major depressive disorder, single episode, unspecified; E03.9 Hypothyroidism, unspecified; Z88.8 Allergy status to other drugs, medicaments and biological substances; Z88.6 Allergy status to analgesic agent; Z88.1 Allergy status to other antibiotic agents; Z79.82 Long term (current) use of aspirin; Z79.899 Other long term (current) drug therapy; Z79.01 Long term (current) use of anticoagulants
CPT/HCPCS: 99283; A9270

== ENCOUNTER 2020-11-07 15:33 | Emergency (ER) | payer MEDICARE, MEDICAID ==
[2020-11-07] MEDS ORDERED: Sodium Chloride 0.9% 10 ML Syringe FLUSH PRN (16:09)
[2020-11-07] MEDS ORDERED: HYDROmorphone 0.5 MG/0.5 ML Syringe IVPUSH ONE (16:37)
[2020-11-07] MEDS ORDERED: Ondansetron 4 MG/2 ML SDV IVPUSH ONE (16:38)
--- NOTE | 2020-11-07 16:43 | CR ---
Chest: Portable view of the chest was obtained. Comparison: Prior chest x-ray 10/28/11. Heart size and mediastinum are within normal limits for portable technique. Previous cervical spine surgery is noted. Mild degenerative change is scattered within the thoracic spine. Lungs are clear with no acute parenchymal change. Impression: 1. Findings as noted above. 2. Nothing acute is seen. Diagnostic code #2
--- NOTE | 2020-11-07 16:43 | EDM.PDOC ---
ED HPI GENERAL MEDICAL PROBLEM - General Chief Complaint: Chest Pain Stated Complaint: CHEST PAIN Time Seen by Provider: 11/07/20 16:30 Source of Information: Reports: Patient, Family (spouse) History Limitations: Reports: Physical Impairment (Moderately hard of hearing and she does not have her hearing aids in.), Other - History of Present Illness INITIAL COMMENTS - FREE TEXT/NARRATIVE: 60-year-old female presents to the ED complaining of left precordial chest pain off and on for the last 3 days. Couple days ago is more severe and radiated all the way up to her left jaw. Today is confined to the left precordium. It is made worse with walking and exertion and deep breathing. She has a chronic cough from cigarette smoking and does bring up the occasional brownish sputum. No fever no chills. She has had both of her COVID-19 vaccinations as has her spouse. She feels her heart is skipping and racing at times. The only new medication she is on is desvenlafaxine for the last month. No odynophagia or trouble swelling Onset: Gradual Onset Date: 11/04/20 (He did have the left precordial chest discomfort 3 days ag o and she believes it is gradually getting worse and more intense and more frequent.) Duration: Day(s):, Constant, Getting Worse Location: Reports: Chest (Left precordial chest discomfort worsened by deep breathing. She will not see that it is sharp and stabbing but) Quality: Reports: Ache ( more of an ache.), Pressure Severity: Mild (4-10.) Improves with: Reports: Rest Worsens with: Reports: Other (Worse with coughing and deep breathing.) Context: Denies: Activity, Exercise, Lifting, Sick Contact, Trauma, Other Associated Symptoms: Reports: Chest Pain ( usually brownish in color from cigarette smoking.), Cough, cough w sputum (Brings up sputum), Shortness of Breath. 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 I suspect it was 650 mg.) Chest Pain Score (Numeric/FACES): 8 - Related Data Allergies Allergy/AdvReac Type Severity Reaction Status Date / Time aripiprazole [From Abilify] Allergy Cannot Verified 11/07/20 15:50 Remember dextrose Allergy Rash Verified 11/07/20 15:50 ibuprofen Allergy Cannot Verified 11/07/20 15:50 Remember levofloxacin [From Levaquin] Allergy Rash Verified 11/07/20 15:50 naproxen [From Aleve] Allergy Cannot Verified 11/07/20 15:50 Remember fluconazole [From Diflucan] AdvReac dystonia Verified 11/07/20 15:50 Home Meds: Home Meds Aspirin [Halfprin] 81 mg PO DAILY 11/05/13 [History] Simvastatin [Zocor] 20 mg PO DAILY 07/19/15 [History] Albuterol [Ventolin HFA] 1 - 2 puff INH Q4H PRN 01/24/18 [History] Fluticasone Propion/Salmeterol [Advair 250-50 Diskus] 1 puff INH DAILY 01/24/18 [History] Cholecalciferol (Vitamin D3) [Vitamin D3] 5,000 unit PO DAILY 05/02/18 [History] Gabapentin [Neurontin] 200 mg PO BID 03/06/20 [History] Metoprolol Succinate 50 mg PO DAILY 03/06/20 [History] Omeprazole 40 mg PO QAM 03/06/20 [History] Potassium Chloride 10 meq PO DAILY 03/06/20 [History] Temazepam 30 mg PO BEDTIME 03/06/20 [History] Cyclobenzaprine [Flexeril] 1 tab PO TID PRN 11/07/20 [History] Desvenlafaxine [Desvenlafaxine ER] 1 tab PO DAILY 11/07/20 [History] Ibuprofen [Ibu] 1 tab PO DAILY PRN 11/07/20 [History] Levothyroxine 1 tab PO DAILY 11/07/20 [History] Lurasidone [Latuda] 1 tab PO BEDTIME 11/07/20 [History] Mirtazapine [Remeron] 1 tab PO DAILY 11/07/20 [History] Simvastatin 1 tab PO DAILY 11/07/20 [History] buPROPion HCL [Wellbutrin Xl] 1 tab PO DAILY 11/07/20 [History] predniSONE [Prednisone] 20 mg PO BID #10 tablet 11/07/20 [Rx] Past Medical History HEENT History: Reports: Hard of Hearing, Sinusitis, Other (See Below) Other HEENT History: hearing loss, tonsillitis, pharyngitis, vasomotor rhinitis, deviated septum, wears glasses, has hearing aids Cardiovascular History: Reports: High Cholesterol, Other (See Below) Other Cardiovascular History: palpitations Respiratory History: Reports: Asthma, Bronchitis, Recurrent, Sleep Apnea, SOB, Other (See Below) Other Respiratory History: URI, pleural effusions, uses CPAP Gastrointestinal History: Reports: GERD, GI Bleed, Other (See Below) Other Gastrointestinal History: small bowel obstruction Genitourinary History: Reports: Urinary Incontinence, UTI, Recurrent, Other (See Below) Other Genitourinary History: hematuria, UTI, cystitis PRESS HAND 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: 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: 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 Other PRESS HAND SUPERVISOR History: right breast biopsy, elective , atrophic vaginitis, genital herpes Musculoskeletal History: Reports: Back Pain, Chronic, Osteoarthritis Other Musculoskeletal History: contusion, costochondritis, back pain, knee enthesopathy, joint pain, hammertoe, left knee torn meniscus, degenerative joint disease Neurological History: Reports: Headaches, Chronic Psychiatric History: Reports: Addiction, Anxiety, Depression, Psych Hospitalization(s), Schizophrenia Endocrine/Metabolic History: Reports: Hypothyroidism Hematologic History: Reports: Other (See Below) Other Hematologic History: abnormal coagulation studies Dermatologic History: Reports: Other (See Below) Other Dermatologic History: animal bite, foot ulcer - Infectious Disease History Infectious Disease History: Reports: Rubella - Past Surgical History Head Surgeries/Procedures: Reports: None HEENT Surgical History: Reports: Cataract Surgery, Naso-Sinus Surgery Other HEENT Surgeries/Procedures: deviated septum with surgery GI Surgical History: Reports: Colonoscopy Female Surgical History: Reports: Breast Biopsy, Hysterectomy, Tubal Ligation Other Female Surgeries/Procedures: right ovary Neurological Surgical History: Reports: C-Spine Other Neurological Surgeries/Procedures: [id number] fusion with hardware Musculoskeletal Surgical History: Reports: Arthroscopic Knee, Hip Replacement, Knee Replacement Other Musculoskeletal Surgeries/Procedures:: left hip replacement, left knee surgery, right total knee replacement Oncologic Surgical History: Reports: None Social & Family History - Family History Cardiac: Reports: Heart Failure Neurological: Reports: CVA Endocrine/Metabolic: Reports: Diabetes, type II - Tobacco Use Tobacco Use Status *Q: Current Every Day Tobacco User Years of Tobacco use: 45 Packs/Tins Daily: 1 - Caffeine Use Caffeine Use: Reports: Coffee, Soda - Recreational Drug Use Recreational Drug Use: No - Living Situation & Occupation Living situation: Reports: with Spouse ED ROS GENERAL - Review of Systems Review Of Systems: See Below Constitutional: Reports: Fatigue. Denies: Fever, Chills, Malaise, Weakness, Diaphoresis (Names us on her medications.), Decreased Appetite, Weight Loss HEENT: Reports: Glasses, Hearing Loss Respiratory: Reports: Shortness of Breath (Hard of hearing and currently does not have her hearing aids in.), Wheezing, Cough, Sputum. Denies: Pleuritic Chest Pain, Hemoptysis (Sputum on occasion.) Cardiovascular: Reports: Chest Pain (Ache pressure discomfort left precordial chest. Radiates occasionally up towards her left neck. Nothing into the left shoulder back or arm.), Dyspnea on Exertion. Denies: Blood Pressure Problem, Claudication, Edema, Lightheadedness, Orthopnea Endocrine: Reports: Fatigue (Smoking cigarettes for 40 years.) GI/Abdominal: Reports: No Symptoms : Reports: Frequency, Incontinence (Rare urgency incontinence.) Musculoskeletal: Reports: Neck Pain, Shoulder Pain, Back Pain Skin: Reports: No Symptoms Neurological: Reports: Dizziness (Occasional dizziness which she blames on medications.). Denies: Seizure, Syncope Psychiatric: Reports: Anxiety, Depression, Mood Lability, Other (Chronic insomnia). Denies: Suicidal Ideation Hematologic/Lymphatic: Reports: No Symptoms Immunologic: Reports: No Symptoms ED EXAM, GENERAL - Physical Exam Exam: See Below Exam Limited By: No Limitations General Appearance: Alert, WD/WN, Anxious, Mild Distress, Other (Mildly anxious. Difficult to discuss questions with her as she is moderately hard of hearing. Temperature is 37.0 degrees heart rate 61 and sinus respiratory is 20. Pressure mildly elevated 179/84. Pulse ox was 94% room air.) Eye Exam: Bilateral Eye: Normal Inspection (No scleral icterus or blepharal pallor.), Proptosis Throat/Mouth: Normal Inspection, Normal Lips, Normal Teeth, Normal Oropharynx, Other Head: Atraumatic, Normocephalic (Mouth is a little dry.) Neck: Normal Inspection, Non-Tender, Full Range of Motion, Other (She has a healed midline cervical neck scar from previous cervical spine surgery.). No: Carotid Bruit, Lymphadenopathy (L), Lymphadenopathy (R), Thyromegaly Respiratory/Chest: No Respiratory Distress, Lungs Clear, Normal Breath Sounds, No Accessory Muscle Use, Other (I could not elicit any anterior chest wall tenderness from ribs 1-5 in the midclavicular line bilaterally.). No: Rales, Rhonchi, Wheezing Cardiovascular: Normal Peripheral Pulses, Regular Rate, Rhythm, No Edema, No Gallop, No Murmur, No Rub Peripheral Pulses: 2+: Carotid (L), Carotid (R), Posterior Tibial (L), Posterior Tibial (R), Dorsalis Pedis (L), Dorsalis Pedis (R) GI/Abdominal: Normal Bowel Sounds, Soft, Non-Tender, No Organomegaly, No Abnormal Bruit, No Mass, Pelvis Stable Back Exam: Normal Inspection, Full Range of Motion. No: CVA Tenderness (L), CVA Tenderness (R) Extremities: Normal Inspection, Normal Range of Motion, Non-Tender, No Pedal Edema, Other (Right hip replacement and left knee replacement.) Neurological: Alert, Oriented, CN II-XII Intact, Normal Cognition Psychiatric: Anxious Skin Exam: Warm, Dry, Intact (Anxious.), Normal Color, No Rash #1 Interpretation EKG Date: 11/07/20 Time: 15:41 Rhythm: NSR Rate (Beats/Min): 60 [place]: Normal P-Wave: Present QRS: Other (RSR prime wave V1 normal variant. Tall R wave in lead I consider left ventricular hypertrophy. There is early R wave transition consider right ventricular hypertrophy versus septal hypertrophy pattern.) ST-T: Normal QT: Normal EKG Interpretation Comments: Borderline ECG Course - Vital Signs Last Recorded V/S: Last Vital Signs Temp 37.0 C 11/07/20 15:44 Pulse 60 11/07/20 17:50 Resp 17 11/07/20 17:50 BP 164/73 H 11/07/20 17:50 Pulse Ox 95 11/07/20 17:50 - Orders/Labs/Meds Orders: Active Orders 24 hr Category Date Time Status Peripheral IV Insertion Adult [OM.PC] Routine Oth 11/07/20 16:09 Ordered Labs: Laboratory Tests 11/07/20 11/07/20 11/07/20 Range/Units 15:49 15:49 15:49 WBC 6.53 (3.98-10.04) K/mm3 RBC 5.09 (3.98-5.22) M/mm3 Hgb 13.6 (11.2-15.7) gm/dl Hct 41.1 (34.1-44.9) % MCV 80.7 (79.4-94.8) fl MCH 26.7 (25.6-32.2) pg MCHC 33.1 (32.2-35.5) g/dl RDW Std Deviation 45.0 (36.4-46.3) fL Plt Count 260 D (182-369) K/mm3 MPV 9.8 (9.4-12.3) fl Neut % (Auto) 61.1 (34.0-71.1) % Lymph % (Auto) 29.1 (19.3-51.7) % [place] % (Auto) 7.7 (4.7-12.5) % Eos % (Auto) 1.4 (0.7-5.8) Baso % (Auto) 0.5 (0.1-1.2) % Neut # (Auto) 4.00 (1.56-6.13) K/mm3 Lymph # (Auto) 1.90 (1.18-3.74) K/mm3 [place] # (Auto) 0.50 H (0.24-0.36) K/mm3 Eos # (Auto) 0.09 (0.04-0.36) K/mm3 Baso # (Auto) 0.03 (0.01-0.08) K/mm3 D-Dimer, Quantitative 0.73 H (0.19-0.50) mg/L Sodium 143 (136-145) mEq/L Potassium 3.6 (3.5-5.1) mEq/L Chloride 106 (98-107) mEq/L Carbon Dioxide 23 (21-32) mEq/L Anion Gap 17.6 H (5-15) BUN 12 (7-18) mg/dL Creatinine 1.0 (0.55-1.02) mg/dL Est Cr Clr Drug Dosing 48.87 mL/min Estimated GFR (MDRD) 56 (>60) mL/min BUN/Creatinine Ratio 12.0 L (14-18) Glucose 71 L (80-115) mg/dL Calcium 8.4 L (8.5-10.1) mg/dL Magnesium (1.8-2.4) mg/dl Total Bilirubin 0.3 (0.2-1.0) mg/dL AST 18 (15-37) U/L ALT 24 (14-59) U/L Alkaline Phosphatase 130 H (46-116) U/L Lactate Dehydrogenase (81-234) U/L CK-MB (CK-2) 0.7 (0-3.6) ng/ml Troponin I < 0.017 (0.00-0.056) ng/mL C-Reactive Protein (<1.0) mg/dL NT-Pro-B Natriuret Pep (0-125) pg/mL Total Protein 7.2 (6.4-8.2) g/dl Albumin 3.7 (3.4-5.0) g/dl Globulin 3.5 gm/dL Albumin/Globulin Ratio 1.1 (1-2) 11/07/20 11/07/20 Range/Units 15:49 15:49 WBC (3.98-10.04) K/mm3 RBC (3.98-5.22) M/mm3 Hgb (11.2-15.7) gm/dl Hct (34.1-44.9) % MCV (79.4-94.8) fl MCH (25.6-32.2) pg MCHC (32.2-35.5) g/dl RDW Std Deviation (36.4-46.3) fL Plt Count (182-369) K/mm3 MPV (9.4-12.3) fl Neut % (Auto) (34.0-71.1) % Lymph % (Auto) (19.3-51.7) % [place] % (Auto) (4.7-12.5) % Eos % (Auto) (0.7-5.8) Baso % (Auto) (0.1-1.2) % Neut # (Auto) (1.56-6.13) K/mm3 Lymph # (Auto) (1.18-3.74) K/mm3 [place] # (Auto) (0.24-0.36) K/mm3 Eos # (Auto) (0.04-0.36) K/mm3 Baso # (Auto) (0.01-0.08) K/mm3 D-Dimer, Quantitative (0.19-0.50) mg/L Sodium (136-145) mEq/L Potassium (3.5-5.1) mEq/L Chloride (98-107) mEq/L Carbon Dioxide (21-32) mEq/L Anion Gap (5-15) BUN (7-18) mg/dL Creatinine (0.55-1.02) mg/dL Est Cr Clr Drug Dosing mL/min Estimated GFR (MDRD) (>60) mL/min BUN/Creatinine Ratio (14-18) Glucose (80-115) mg/dL Calcium (8.5-10.1) mg/dL Magnesium 1.7 L (1.8-2.4) mg/dl Total Bilirubin (0.2-1.0) mg/dL AST (15-37) U/L ALT (14-59) U/L Alkaline Phosphatase (46-116) U/L Lactate Dehydrogenase 183 (81-234) U/L CK-MB (CK-2) (0-3.6) ng/ml Troponin I (0.00-0.056) ng/mL C-Reactive Protein 1.5 H* (<1.0) mg/dL NT-Pro-B Natriuret Pep 182 H (0-125) pg/mL Total Protein (6.4-8.2) g/dl Albumin (3.4-5.0) g/dl Globulin gm/dL Albumin/Globulin Ratio (1-2) Meds: Medications Discontinued Medications Generic Name Dose Route Start Last Admin Trade Name Freq PRN Reason Stop Dose Admin Hydromorphone HCl 0.5 mg 11/07/20 16:37 11/07/20 17:11 Hydromorphone 0.5 Mg/0.5 Ml Syringe IVPUSH 11/07/20 16:38 0.5 mg ONETIME ONE Administration Ondansetron HCl 4 mg 11/07/20 16:38 11/07/20 17:11 Ondansetron 4 Mg/2 Ml Sdv IVPUSH 11/07/20 16:39 4 mg ONETIME ONE Administration Sodium Chloride 10 ml 11/07/20 16:09 11/07/20 16:27 Sodium Chloride 0.9% 10 Ml Syringe FLUSH 10 ml ASDIRECTED PRN Administration Keep Vein Open - Radiology Interpretation Free Text/Narrative:: 60-year-old female presents to the ED with left-sided [place] chest pain off and on for the last 3 to 4 days. She feels it is gradually getting a bit worse and is made worse by deep breathing and walking. She is a heavy cigarette smoker pack to a pack and half a day for 40 years. She has no known coronary artery disease. She states she has her usual smoker's cough and sputum production. Patient falls or injuries to her chest wall. No trouble swallowing. No recent vomiting. She has had both of her COVID-19 vaccinations. Examination reveals minimal tenderness over rib #4 in the left midclavicular line. Lungs are clear to osseous percussion without any wheezing at this time. ECG does not show any signs of acute ischemic change. Plan 1 view chest x-ray. Routine labs to include cardiac markers and D-dimer. I will give her Dilaudid 0.5 mg IV with Zofran 2 mg IV for pain relief. She has taken a large amount of aspirin earlier today and apparently takes Naprosyn and Motrin on a daily basis as well. - Re-Assessments/Exams Free Text/Narrative Re-Assessment/Exam: 11/07/20 16:54 portable chest x-ray reveals heart size and mediastinum to be within normal limits for portable technique. Previous cervical spine surgery is appreciated. Mild degenerative changes scattered throughout the thoracic spine. Lungs are clear with no acute parenchymal changes. 11/07/20 17:22 White count is 6.53 with 61% neutrophils. Hemoglobin is 13.6 with hematocrit of 41.1. Platelet count is normal at 260,000. D-dimer is minimally elevated at 0.73. Sodium is 143 with a potassium of 3.6 chloride 106 with a bica rb of 23. Anion gap is 17.6 indicating mild metabolic acidosis. BUN is 12 with a creatinine of 1.0 GFR is 56. Glucose is 71. Calcium is 8.4 magnesium is 1.7 liver function is normal other than mildly elevated alkaline phosphatase at 130. LDH is 183 CK-MB fraction is 0.7 troponin I is less than 0.017 C-reactive protein is 1.5 BNP is 182 slightly elevated total protein 7.2 with an albumin fraction of 3.7 Departure - Departure Time of Disposition: 17:43 Disposition: Home, Self-Care 01 Reason for Transfer *Q: Other Condition: Fair Clinical Impression: Non-cardiac chest pain, Anterior chest wall pain Prescriptions: predniSONE [Prednisone] 20 mg PO BID #10 tablet Instructions: Chest Wall Pain, [id number] Referrals: Beena Guillen NP [Primary Care Provider] - Forms: ED Department Discharge Additional Instructions: Evaluation in the emergency room today in regards to left anterior chest chest pain that is been coming and going and becoming perhaps a little more intense and more frequent over the last day or so. It is made worse by deep breathing and coughing. Complete cardiac work-up was carried out in the emergency room and there is no evidence of heart related illness. Chest x-ray proved to be completely clear as well with no signs of infection or pneumonia. I believe the pain is coming from chest wall inflammation either muscles between the ribs or the rib lining itself which has a lot of nerve endings. I suggest treatment to be Motrin 600 mg every 6 hours as needed as needed for inflammation and prednisone 20 mg twice daily with breakfast and supper for 5 days to relieve inflammation. Expect gradual improvement over the next 3 to 5 days. If not better in 5 days time suggest follow-up with personal care physician. Sepsis Event Note (ED) - Evaluation Sepsis Screening Result: No Definite Risk - Focused Exam Vital Signs: Vital Signs Temp Pulse Resp BP Pulse Ox 11/07/20 17:50 60 17 164/73 H 95 11/07/20 15:44 37.0 C 61 20 179/84 H - My Orders Last 24 Hours: My Active Orders 11/07/20 16:09 Peripheral IV Insertion Adult [OM.PC] Routine - Assessment/Plan Last 24 Hours: My Active Orders 11/07/20 16:09 Peripheral IV Insertion Adult [OM.PC] Routine
[2020-11-07 18:03] VITALS: BP 164/73; PULSE 60
== END 2020-11-07 18:03 | disposition home or self-care (01) ==
LOC: JD.ED 15:33
DX: R07.89 Other chest pain (principal); E78.00 Pure hypercholesterolemia, unspecified; J45.909 Unspecified asthma, uncomplicated; K21.9 Gastro-esophageal reflux disease without esophagitis; E03.9 Hypothyroidism, unspecified; Z88.8 Allergy status to other drugs, medicaments and biological substances; Z91.048 Other nonmedicinal substance allergy status; Z88.1 Allergy status to other antibiotic agents; Z88.6 Allergy status to analgesic agent; Z79.82 Long term (current) use of aspirin; Z79.899 Other long term (current) drug therapy; Z72.0 Tobacco use
CPT/HCPCS: 36415; 71045; 80053; 82553; 83615; 83735; 83880; 84484; 85025; 85379; 86140; 93005; 96374; 96375; 99285; J1170; J2405; 93010; 99284

== ENCOUNTER 2021-09-05 21:20 | Emergency (ER) | payer MEDICARE, MEDICAID ==
[2021-09-05 21:38] VITALS: BP 170/75; PULSE 67
== END 2021-09-05 22:04 | disposition home or self-care (01) ==
LOC: JD.ED 21:20
DX: T42.6X1A Poisoning by other antiepileptic and sedative-hypnotic drugs, accidental (unintentional), initial encounter (principal); T42.4X1A Poisoning by benzodiazepines, accidental (unintentional), initial encounter; T39.011A Poisoning by aspirin, accidental (unintentional), initial encounter; T46.6X1A Poisoning by antihyperlipidemic and antiarteriosclerotic drugs, accidental (unintentional), initial encounter; E78.00 Pure hypercholesterolemia, unspecified; J45.909 Unspecified asthma, uncomplicated; M19.90 Unspecified osteoarthritis, unspecified site; Z88.1 Allergy status to other antibiotic agents; Z87.891 Personal history of nicotine dependence; Z88.8 Allergy status to other drugs, medicaments and biological substances; Z88.5 Allergy status to narcotic agent; Z79.82 Long term (current) use of aspirin; Z79.899 Other long term (current) drug therapy
CPT/HCPCS: 99283

== ENCOUNTER 2021-11-13 07:13 | Day surgery (SDC) | payer MEDICARE, MEDICAID ==
[~2021-11-13 07:13] MED LIST changes: -Acetaminophen 325 MG Tab PO SCH; -Bisacodyl 5 MG Tab PO PRN; +Lidocaine 1% 4 ML ONE; -Magnesium Hydroxide 400 MG/5 ML Susp 30 ML Cup PO PRN; +Midazolam 1 MG/ML 2 ML SDV ONE; -Morphine 2 MG/ML SYRINGE IVPUSH PRN; -Naloxone 0.4 MG/ML SDV IVPUSH PRN; -Ondansetron 4 MG/2 ML SDV IVPUSH PRN; -Pregabalin 25 MG Cap PO SCH; +Propofol 200 MG/20 ML SDV ONE; -Sennosides 8.6 MG Tab PO PRN; +Sodium Chloride 0.9% 10 ML Syringe FLUSH SCH; +ceFAZolin 1 GM Vial ONE; +fentaNYL 100 MCG/2 ML SDV ONE; -oxyCODONE ER 10 MG TAB.ER PO SCH
[2021-11-13] MEDS ORDERED: ePHEDrine 50 MG/ML SDV ONE (08:02)
[2021-11-13] MEDS ORDERED: Lactated Ringers 1,000 ML ONE ×2 (08:21→09:42)
[2021-11-13] MEDS ORDERED: HYDROmorphone 0.5 MG/0.5 ML Syringe IVPUSH PRN (08:32)
[2021-11-13] MEDS ORDERED: fentaNYL 100 MCG/2 ML SDV IVPUSH PRN (08:32)
[2021-11-13] MEDS ORDERED: Ondansetron 4 MG/2 ML SDV IVPUSH PRN (08:32)
[2021-11-13] MEDS: Morphine 8 MG, EPINEPHrine 0.3 MG, Cefuroxime 750 MG, Ketorolac 30 MG, Sodium Chloride ... PRN ×10 (09:05→09:35)
[2021-11-13] MEDS: Vancomycin 1 GM SDV ONE ×2 (09:05→09:35)
[2021-11-13] MEDS ORDERED: Propofol 200 MG/20 ML SDV ONE (09:13)
[2021-11-13] MEDS ORDERED: Ketorolac 15 MG/ML SDV ONE (09:48)
[2021-11-13] MEDS ORDERED: Ondansetron 4 MG/2 ML SDV ONE (09:49)
[2021-11-13] MEDS ORDERED: Acetaminophen/HYDROcodone 325-5 MG Tab PO ONE (11:00)
[2021-11-13 13:42] VITALS: BP 110/58; PULSE 58
== END 2021-11-13 13:30 | disposition home or self-care (01) ==
LOC: JD.SDS 07:13
PROVIDERS: ATTEND Orthopaedic Surgery
DX: M16.11 Unilateral primary osteoarthritis, right hip (principal); E78.2 Mixed hyperlipidemia; E03.9 Hypothyroidism, unspecified; H91.90 Unspecified hearing loss, unspecified ear; J45.31 Mild persistent asthma with (acute) exacerbation; F33.1 Major depressive disorder, recurrent, moderate; K21.9 Gastro-esophageal reflux disease without esophagitis; G47.30 Sleep apnea, unspecified; E66.9 Obesity, unspecified; Z68.41 Body mass index [BMI] 40.0-44.9, adult; Z79.82 Long term (current) use of aspirin; Z79.51 Long term (current) use of inhaled steroids; Z79.899 Other long term (current) drug therapy; Z88.8 Allergy status to other drugs, medicaments and biological substances; Z91.018 Allergy to other foods; Z88.4 Allergy status to anesthetic agent; Z88.1 Allergy status to other antibiotic agents; Z88.6 Allergy status to analgesic agent; Z87.891 Personal history of nicotine dependence; Z79.890 Hormone replacement therapy
CPT/HCPCS: 0055T; 27130; 36415; 73501; 86850; 86900; 86901; 97116; 97161; C1713; C1776; J0171; J0690; J0697; J1885; J2250; J2270; J2370; J2405; J2704; J3010; J3370; J7120; 01214

== ENCOUNTER 2021-12-17 15:26 | Emergency (ER) | payer MEDICARE, MEDICAID ==
[2021-12-17] MEDS ORDERED: Sodium Chloride 0.9% 10 ML Syringe FLUSH PRN (15:46)
[2021-12-17] MEDS ORDERED: EPINEPHrine 1 MG/ML SDV IM PRN (15:56)
[2021-12-17] MEDS ORDERED: diphenhydrAMINE 50 MG/ML SDV IVPUSH PRN (15:56)
[2021-12-17] MEDS ORDERED: Famotidine 20 MG/2 ML SDV IVPUSH PRN (15:56)
[2021-12-17] MEDS ORDERED: methylPREDNISolone Sodium Succinate 125 MG/2 ML SDV IVPUSH PRN (15:56)
[2021-12-17] MEDS ORDERED: Sodium Chloride 0.9% 10 ML Syringe FLUSH SCH (16:00)
[2021-12-17 16:42] VITALS: BP 139/65; PULSE 69
== END 2021-12-17 17:30 | disposition home or self-care (01) ==
LOC: JD.ED 15:26
DX: U07.1 COVID-19 (principal); E78.00 Pure hypercholesterolemia, unspecified; I10 Essential (primary) hypertension; K21.9 Gastro-esophageal reflux disease without esophagitis; E03.9 Hypothyroidism, unspecified; F17.210 Nicotine dependence, cigarettes, uncomplicated; E66.9 Obesity, unspecified; Z68.41 Body mass index [BMI] 40.0-44.9, adult; Z86.16 Personal history of COVID-19; Z90.710 Acquired absence of both cervix and uterus; Z79.899 Other long term (current) drug therapy; Z88.8 Allergy status to other drugs, medicaments and biological substances; Z91.018 Allergy to other foods; Z88.1 Allergy status to other antibiotic agents; Z88.6 Allergy status to analgesic agent
CPT/HCPCS: 36415; 71045; 80053; 83735; 85025; 86140; 99285; M0222; Q0222

== ENCOUNTER 2022-08-01 06:53 | Day surgery (SDC) | payer MEDICARE, MEDICAID ==
[~2022-08-01 06:53] MED LIST changes: -Lidocaine 1% 4 ML ONE; -Midazolam 1 MG/ML 2 ML SDV ONE; -Propofol 200 MG/20 ML SDV ONE; -ceFAZolin 1 GM Vial ONE; -fentaNYL 100 MCG/2 ML SDV ONE
[2022-08-01] MEDS ORDERED: Ondansetron 4 MG/2 ML SDV ONE (07:09)
[2022-08-01] MEDS ORDERED: Propofol 200 MG/20 ML SDV ONE (07:09)
[2022-08-01] MEDS ORDERED: fentaNYL 100 MCG/2 ML SDV ONE (07:10)
[2022-08-01] MEDS ORDERED: Midazolam 1 MG/ML 2 ML SDV ONE (07:10)
[2022-08-01] MEDS ORDERED: Lidocaine 1% 2 ML ONE (07:11)
[2022-08-01 09:11] VITALS: BP 150/64; PULSE 65
== END 2022-08-01 09:45 | disposition home or self-care (01) ==
LOC: JD.SDS 06:53
PROVIDERS: ATTEND Surgery
DX: D12.3 Benign neoplasm of transverse colon (principal); K62.1 Rectal polyp; K21.00 Gastro-esophageal reflux disease with esophagitis, without bleeding; K22.70 Barrett's esophagus without dysplasia; K29.70 Gastritis, unspecified, without bleeding; K64.8 Other hemorrhoids; D64.9 Anemia, unspecified; E78.5 Hyperlipidemia, unspecified; E03.9 Hypothyroidism, unspecified; M19.90 Unspecified osteoarthritis, unspecified site; F33.9 Major depressive disorder, recurrent, unspecified; J45.31 Mild persistent asthma with (acute) exacerbation; F17.210 Nicotine dependence, cigarettes, uncomplicated; G47.30 Sleep apnea, unspecified; F41.9 Anxiety disorder, unspecified; E87.6 Hypokalemia; E66.01 Morbid (severe) obesity due to excess calories; Z68.41 Body mass index [BMI] 40.0-44.9, adult; M54.41 Lumbago with sciatica, right side; G89.29 Other chronic pain; F20.9 Schizophrenia, unspecified; E78.00 Pure hypercholesterolemia, unspecified; Z98.890 Other specified postprocedural states; Z90.710 Acquired absence of both cervix and uterus; Z79.899 Other long term (current) drug therapy; Z88.8 Allergy status to other drugs, medicaments and biological substances; Z91.018 Allergy to other foods; Z88.1 Allergy status to other antibiotic agents; Z88.6 Allergy status to analgesic agent; Z88.5 Allergy status to narcotic agent; Z79.890 Hormone replacement therapy; Z79.82 Long term (current) use of aspirin; Z86.16 Personal history of COVID-19
CPT/HCPCS: 43239; 45380; J2250; J2405; J2704; J3010; J7120; 88305

== ENCOUNTER 2022-10-23 21:46 | Emergency (ER) | payer MEDICARE, MEDICAID ==
[2022-10-23] MEDS ORDERED: Lidocaine 1% PF 2 ML SDV INJECT ONE (23:28)
[2022-10-24 02:50] VITALS: BP 165/75; PULSE 68
== END 2022-10-24 02:45 | disposition home or self-care (01) ==
LOC: JD.ED 21:46
DX: I11.0 Hypertensive heart disease with heart failure (principal); I50.9 Heart failure, unspecified; J45.909 Unspecified asthma, uncomplicated; E78.00 Pure hypercholesterolemia, unspecified; K21.9 Gastro-esophageal reflux disease without esophagitis; E03.9 Hypothyroidism, unspecified; E66.9 Obesity, unspecified; Z68.41 Body mass index [BMI] 40.0-44.9, adult; Z79.899 Other long term (current) drug therapy; Z79.82 Long term (current) use of aspirin; Z88.5 Allergy status to narcotic agent; Z88.6 Allergy status to analgesic agent; Z88.8 Allergy status to other drugs, medicaments and biological substances; Z86.16 Personal history of COVID-19
CPT/HCPCS: 36415; 36600; 71275; 71275-26; 80053; 82803; 83880; 84484; 85025; 85379; 93005; 99285; J3490

== ENCOUNTER 2023-08-28 17:30 | Emergency (ER) | payer MEDICARE, MEDICAID ==
[2023-08-28] MEDS: Sodium Chloride 0.9% 1,000 ML IV ONE (18:33)
[2023-08-28] MEDS: Sodium Chloride 0.9% 10 ML Syringe FLUSH PRN (18:33)
[2023-08-28 21:14] VITALS: BP 110/87; PULSE 90
== END 2023-08-28 20:48 | disposition home or self-care (01) ==
LOC: JD.ED 17:30
DX: K59.01 Slow transit constipation (principal); A08.4 Viral intestinal infection, unspecified; I10 Essential (primary) hypertension; E78.00 Pure hypercholesterolemia, unspecified; J45.909 Unspecified asthma, uncomplicated; K21.9 Gastro-esophageal reflux disease without esophagitis; E03.9 Hypothyroidism, unspecified; Z79.899 Other long term (current) drug therapy; Z88.5 Allergy status to narcotic agent; Z88.1 Allergy status to other antibiotic agents; Z88.8 Allergy status to other drugs, medicaments and biological substances; Z88.6 Allergy status to analgesic agent
CPT/HCPCS: 74019; 96360; 99284; J3490; J7030; 99283

== ENCOUNTER 2024-04-17 08:44 | Emergency (ER) | payer MEDICARE, MEDICAID ==
[2024-04-17] MEDS: Ibuprofen 600 MG Tab PO ONE (09:30)
[2024-04-17 09:58] LABS: BASOPHILS PERCENT AUTO 0.4 % (0.0-1.0); EOSINOPHILS PERCENT AUTO 0.1 % (0.0-6.0); HEMATOCRIT 36.5 % (37.0-47.0); HEMOGLOBIN 12.5 gm/dl (12.0-16.0); IMMATURE GRAN ABSOLUTE AUTO 0.03 K/mm3 (0.00-0.05); IMMATURE GRAN PERCENT AUTO 0.4 % (0.0-0.4); LYMPHOCYTES ABSOLUTE AUTO 2.1 K/mm3 (1.0-4.8); LYMPHOCYTES PERCENT AUTO 29.9 % (24.0-44.0); MEAN CORPUSCULAR HEMOGLOBIN 31.6 pg (28.0-32.0); MEAN CORPUSCULAR HGB CONC 34.2 g/dl (32.0-36.0); MEAN CORPUSCULAR VOLUME 92.4 fl (83.0-99.0); MEAN PLATELET VOLUME 9.1 fl (9.4-12.3); MONOCYTES ABSOLUTE AUTO 0.5 K/mm3 (0.0-0.8); MONOCYTES PERCENT AUTO 6.9 % (0.0-8.0); NEUTROPHILS ABSOLUTE AUTO 4.4 K/mm3 (1.8-7.7); NEUTROPHILS PERCENT AUTO 62.3 % (41.0-71.0); PLATELET COUNT,PLT 224 K/mm3 (150-400); RED BLOOD CELL COUNT 3.95 M/mm3 (4.10-5.30)
[2024-04-17 10:27] LABS: ANION GAP 11.9 (5-15); BILIRUBIN TOTAL 0.3 mg/dL (0.2-1.0); BUN/CREATININE RATIO 4.4 (14-18); CALCIUM 8.8 mg/dL (8.5-10.1); CREATININE 0.9 mg/dL (0.55-1.02); EST CRCL DRUG DOSING (CG) 52.24 mL/min; MAGNESIUM 1.7 mg/dL (1.8-2.4); POTASSIUM,K 3.9 mEq/L (3.5-5.1); PROTEIN TOTAL,TP 6.1 g/dl (6.4-8.2)
[2024-04-17 17:58] VITALS: BP 132/76; PULSE 87
== END 2024-04-17 11:20 | disposition home or self-care (01) ==
LOC: JD.ED 08:44
DX: S00.03XA Contusion of scalp, initial encounter (principal); S70.02XA Contusion of left hip, initial encounter; I10 Essential (primary) hypertension; E78.00 Pure hypercholesterolemia, unspecified; J45.909 Unspecified asthma, uncomplicated; K21.9 Gastro-esophageal reflux disease without esophagitis; E03.9 Hypothyroidism, unspecified; E66.9 Obesity, unspecified; Z68.41 Body mass index [BMI] 40.0-44.9, adult; Z86.16 Personal history of COVID-19; Z90.49 Acquired absence of other specified parts of digestive tract; Z79.899 Other long term (current) drug therapy; Z79.890 Hormone replacement therapy; Z79.82 Long term (current) use of aspirin; Z88.8 Allergy status to other drugs, medicaments and biological substances; Z88.1 Allergy status to other antibiotic agents; Z88.5 Allergy status to narcotic agent
CPT/HCPCS: 36415; 70450; 73502; 80053; 83735; 84484; 85025; 93005; 99284; A9270; 93010; 99283

== ENCOUNTER 2024-09-02 12:46 | Emergency (ER) | payer MEDICARE, MEDICAID ==
[2024-09-02 13:13] VITALS: PULSE 58
[2024-09-02 17:45] VITALS: BP 131/84
== END 2024-09-02 14:00 | disposition home or self-care (01) ==
LOC: JD.ED 12:46
DX: S70.02XA Contusion of left hip, initial encounter (principal); M70.88 Other soft tissue disorders related to use, overuse and pressure other site; M19.90 Unspecified osteoarthritis, unspecified site; I11.0 Hypertensive heart disease with heart failure; I50.9 Heart failure, unspecified; E78.00 Pure hypercholesterolemia, unspecified; J45.909 Unspecified asthma, uncomplicated; K21.9 Gastro-esophageal reflux disease without esophagitis; E03.9 Hypothyroidism, unspecified; E66.9 Obesity, unspecified; Z68.41 Body mass index [BMI] 40.0-44.9, adult; Z86.16 Personal history of COVID-19; Z90.710 Acquired absence of both cervix and uterus; Z96.642 Presence of left artificial hip joint; Z88.5 Allergy status to narcotic agent; Z88.8 Allergy status to other drugs, medicaments and biological substances; Z79.51 Long term (current) use of inhaled steroids; Z79.82 Long term (current) use of aspirin; Z79.890 Hormone replacement therapy; Z79.899 Other long term (current) drug therapy; W19.XXXA Unspecified fall, initial encounter
CPT/HCPCS: 73502-26-LT; 73502-LT; 99284

== ENCOUNTER 2024-11-24 15:02 | Emergency (ER) | payer MEDICARE, MEDICAID ==
[2024-11-24] MEDS ORDERED: Sodium Chloride 0.9% 10 ML Syringe FLUSH PRN (15:06)
[2024-11-24] MEDS: Sodium Chloride 0.9% 100 ML IV SCH (15:12)
[2024-11-24] MEDS: Iopamidol 755 Mg/ML 100 ML Bottle IVPUSH ONE (15:12)
[2024-11-24 15:40] LABS: BASOPHILS PERCENT AUTO 0.5 % (0.0-1.0); HEMATOCRIT 37.8 % (37.0-47.0); HEMOGLOBIN 12.2 gm/dl (12.0-16.0); IMMATURE GRAN ABSOLUTE AUTO 0.03 K/mm3 (0.00-0.05); IMMATURE GRAN PERCENT AUTO 0.5 % (0.0-0.4); LYMPHOCYTES ABSOLUTE AUTO 1.6 K/mm3 (1.0-4.8); LYMPHOCYTES PERCENT AUTO 25.3 % (24.0-44.0); MEAN CORPUSCULAR HEMOGLOBIN 28.8 pg (28.0-32.0); MEAN CORPUSCULAR HGB CONC 32.3 g/dl (32.0-36.0); MEAN CORPUSCULAR VOLUME 89.2 fl (83.0-99.0); MEAN PLATELET VOLUME 8.9 fl (9.4-12.3); MONOCYTES ABSOLUTE AUTO 0.5 K/mm3 (0.0-0.8); MONOCYTES PERCENT AUTO 7.9 % (0.0-8.0); NEUTROPHILS ABSOLUTE AUTO 4.2 K/mm3 (1.8-7.7); NEUTROPHILS PERCENT AUTO 65.8 % (41.0-71.0); PLATELET COUNT,PLT 265 K/mm3 (150-400); RED BLOOD CELL COUNT 4.24 M/mm3 (4.10-5.30); WHITE BLOOD CELL COUNT,WBC 6.32 K/mm3 (3.9-11.3)
[2024-11-24 16:01] LABS: INR 1.07; PROTHROMBIN TIME 11.3 SECONDS (9.7-12.0)
[2024-11-24 16:02] LABS: PTT,PARTIAL THROMBOPLSTIN TIME 27.3 SECONDS (21.7-31.4)
[2024-11-24 16:11] LABS: A/G RATIO 1.1 (1-2); ALBUMIN 3.4 g/dl (3.4-5.0); ANION GAP 14.4 (5-15); BILIRUBIN TOTAL 0.3 mg/dL (0.2-1.0); BUN/CREATININE RATIO 6.9 (14-18); CALCIUM 8.8 mg/dL (8.5-10.1); CREATININE 1.3 mg/dL (0.55-1.02); EST CRCL DRUG DOSING (CG) 38.82 mL/min; POTASSIUM,K 4.4 mEq/L (3.5-5.1); PROTEIN TOTAL,TP 6.4 g/dl (6.4-8.2)
[2024-11-24 16:21] LABS: APPEARANCE,URINE CLEAR (Clear); BILIRUBIN,URINE NEGATIVE (Negative); COLOR,URINE YELLOW (Yellow); GLUCOSE,URINE NEGATIVE (Negative); KETONES,URINE NEGATIVE (Negative); LEUKOCYTE ESTERASE,URINE TRACE (Negative); NITRITE,URINE NEGATIVE (Negative); OCCULT BLOOD,URINE NEGATIVE (Negative); PH,URINE 6.5 (5.0-8.0); PROTEIN,URINE NEGATIVE (Negative); UROBILINOGEN,URINE 0.2 (0.2-1.0)
[2024-11-24 16:44] LABS: BACTERIA,URINE FEW /hpf (FEW); MUCUS,URINE FEW /hpf (FEW); RBC,URINE 0-5 /hpf (0-5); SQUAMOUS EPITHELIAL CELLS,UR 0-5 /hpf (0-5); WBC,URINE 0-5 /hpf (0-5)
[2024-11-24 17:59] VITALS: BP 127/63; PULSE 52
== END 2024-11-24 17:10 | disposition home or self-care (01) ==
LOC: JD.ED 15:02
DX: T40.2X1A Poisoning by other opioids, accidental (unintentional), initial encounter (principal); I10 Essential (primary) hypertension; E66.9 Obesity, unspecified; E03.9 Hypothyroidism, unspecified; E78.00 Pure hypercholesterolemia, unspecified; J45.909 Unspecified asthma, uncomplicated; K21.9 Gastro-esophageal reflux disease without esophagitis; Z88.8 Allergy status to other drugs, medicaments and biological substances; Z88.5 Allergy status to narcotic agent; Z79.899 Other long term (current) drug therapy; Z79.02 Long term (current) use of antithrombotics/antiplatelets; Z79.890 Hormone replacement therapy; Z79.51 Long term (current) use of inhaled steroids; Z90.710 Acquired absence of both cervix and uterus; Z87.891 Personal history of nicotine dependence; Z68.37 Body mass index [BMI] 37.0-37.9, adult
CPT/HCPCS: 36415; 70450; 70496; 70498; 80053; 81001; 82947; 84484; 85025; 85610; 85730; 93005; 99285; Q9967; 93010; 99284

== ENCOUNTER 2025-05-12 16:43 | Emergency (ER) | payer MEDICARE, MEDICAID ==
[2025-05-12 17:21] LABS: BASOPHILS ABSOLUTE AUTO 0.0 K/mm3 (0.0-0.2); BASOPHILS PERCENT AUTO 0.6 % (0.0-1.0); EOSINOPHILS ABSOLUTE AUTO 0.0 K/mm3 (0.0-0.4); EOSINOPHILS PERCENT AUTO 0.0 % (0.0-6.0); IMMATURE GRAN ABSOLUTE AUTO 0.01 K/mm3 (0.00-0.05); IMMATURE GRAN PERCENT AUTO 0.2 % (0.0-0.4); LYMPHOCYTES ABSOLUTE AUTO 1.7 K/mm3 (1.0-4.8); LYMPHOCYTES PERCENT AUTO 26.8 % (24.0-44.0); MEAN PLATELET VOLUME 9.6 fl (9.4-12.3); MONOCYTES ABSOLUTE AUTO 0.5 K/mm3 (0.0-0.8); MONOCYTES PERCENT AUTO 7.2 % (0.0-8.0); NEUTROPHILS ABSOLUTE AUTO 4.1 K/mm3 (1.8-7.7); NEUTROPHILS PERCENT AUTO 65.2 % (41.0-71.0); NRBC ABSOLUTE 0.00 (0.00-0.02); NRBC PERCENT 0.0 % (0.0-0.2); PLATELET COUNT,PLT 206 K/mm3 (150-400); RED BLOOD CELL COUNT 4.47 M/mm3 (4.10-5.30); WHITE BLOOD CELL COUNT,WBC 6.24 K/mm3 (3.9-11.3)
[2025-05-12 17:40] LABS: INR 1.03
[2025-05-12 17:51] LABS: A/G RATIO 1.4 (1-2); ALANINE AMINOTRANSFERASE,ALT 28.0 U/L (14-59); ASPARTATE AMNIOTRANSFERASE,AST 21.0 U/L (15-37); BILIRUBIN TOTAL 0.5 mg/dL (0.2-1.0); BLOOD UREA NITROGEN,BUN 6.0 mg/dL (7-18); CARBON DIOXIDE,CO2 27.0 mEq/L (21-32); CHLORIDE,CL 96.0 mEq/L (98-107); CREATININE 0.9 mg/dL (0.55-1.02); EST CRCL DRUG DOSING (CG) 51.55 mL/min; ESTIMATED GFR 71.0 mL/min (>60); GLUCOSE RANDOM 91.0 mg/dL (70-99); POTASSIUM,K 3.7 mEq/L (3.5-5.1); PROTEIN TOTAL,TP 6.1 g/dl (6.4-8.2); SODIUM,NA 133.0 mEq/L (136-145); TROPONIN I HIGH SENSITIVITY 6.0 pg/mL (<=51)
[2025-05-12 18:21] VITALS: BP 138/88; PULSE 61
== END 2025-05-12 18:15 | disposition home or self-care (01) ==
LOC: JD.ED 16:43
DX: R07.89 Other chest pain (principal); I10 Essential (primary) hypertension; E78.00 Pure hypercholesterolemia, unspecified; J45.909 Unspecified asthma, uncomplicated; E83.42 Hypomagnesemia; Z88.8 Allergy status to other drugs, medicaments and biological substances; Z79.899 Other long term (current) drug therapy; Z79.890 Hormone replacement therapy; Z79.82 Long term (current) use of aspirin
CPT/HCPCS: 36415; 71045; 71045-26; 80053; 83690; 83735; 83880; 84484; 85025; 85610; 93005; 93010; 99284; 99285